=== PATIENT | male | born 1935 | race Caucasian/White ===

== ENCOUNTER 2016-08-22 13:30 | Inpatient (IN) | payer MEDICARE, MEDICAID ==
--- NOTE | 2016-08-22 13:31 | ED Physician Chart ---
Chief Complaint/HPI - Patient Information Date Seen:: 08/22/16 Time Seen:: 13:31 Chief Complaint:: abnormal labs History of Present Illness:: 81-year-old male, history of dementia, [facility] with acute, severe, abnormal labs that were noticed about 2 hours prior to arrival. Patient has abnormal hemoglobin, BUN, and severe leukocytosis. History limited patient's underlying dementia prevents useful history History provided by EMS and EMS run sheet Historian:: EMS Review:: Nurse's Note Reviewed, EMS run form Reviewed, Transfer documents Reviewed Review of Systems - Review of Systems Other: Complete system review otherwise unremarkable except as noted in history of present illness. Past Medical History - Past Medical History Past Medical History: HTN, DM, Dementia Family History: None Social History: Non Smoker, No Alcohol, No Drug Use, Care Facility Surgical History: PEG/GTube Psychiatricy History: Dementia Medication: Reviewed Family Medical History - Family Member Mother History Unknown: Yes Physical Exam - Physical Examination Other:: INITIAL VITAL SIGNS: Reviewed by me GENERAL: Patient is lying on gurney. Demented but awake. Averbal. HEAD: Head is normocephalic. No evidence of trauma. No scalp or facial swelling EYES: No scleral icterus bilaterally ENT: Oropharynx is clear of exudate and erythema NECK: Supple. No meningismus. No masses. No evidence of trauma. No cervical spine bony step-offs or crepitus to palpation RESPIRATORY: No tachypnea. Clear to auscultation bilaterally. CV: Regular rate and rhythm. No murmurs, rubs, or gallops ABDOMEN: Soft, non-distended. No masses BACK: No ecchymoses. No evidence of trauma EXTREMITIES: Normal to inspection and palpation. No deformity SKIN: Warm and dry. No obvious rash. No jaundice NEUROLOGIC: Face is symmetric. Withdraws to pain in all extremities. Labs/Radiology/EKG Results - Lab Results Results: Lab Results 08/22/16 08/22/16 08/22/16 Range/Units 13:50 13:50 13:50 WBC 17.3 H (4.8-10.8) Th/cmm RBC 2.90 L (3.80-5.80) Mil/cmm Hgb 8.0 L (12.6-17.4) gm/dL Hct 24.2 L (39.0-49.0) % MCV 83.7 (80-99) fl MCH 27.5 (27.0-31.0) pg MCHC Differential 32.8 (28.0-36.0) pg RDW 18.8 (11.5-20.0) % Plt Count 498 H (150-400) Th/cmm MPV 7.9 fl Neutrophils % 87.0 H (40.0-80.0) % Lymphocytes % 6.1 L (20.0-50.0) % Monocytes % 5.5 (2.0-10.0) % Eosinophils % 1.0 (0.0-5.0) % Basophils % 0.4 (0.0-2.0) % PT 10.5 (9.5-11.5) SECONDS INR 1.01 (0.5-1.4) PTT (Actin FS) 25.9 L (26.0-38.0) SECONDS Sodium 150 H (136-145) mEq/L Potassium 4.2 (3.5-5.1) mEq/L Chloride 116 H (98-107) mEq/L Carbon Dioxide 25.8 (21.0-31.0) mEq/L Anion Gap 12.4 (7.0-16.0) BUN 72 H (7-25) mg/dL Creatinine 1.6 H (0.7-1.3) mg/dL Est GFR ( Amer) TNP Est GFR (Non-Af Amer) TNP BUN/Creatinine Ratio 45.0 Glucose 161 H (70-105) mg/dL Whole Bld Lactic Acid (0.60-1.99) mmol/L Calcium 9.9 (8.6-10.3) mg/dL Total Bilirubin 0.3 (0.3-1.0) mg/dL AST 25 (13-39) U/L ALT 15 (7-52) U/L Alkaline Phosphatase 88 (34-104) U/L Creatine Kinase 191 (30-223) U/L Total Protein 8.9 H (6.0-8.3) gm/dL Albumin 2.7 L (4.2-5.5) gm/dL Globulin 6.2 gm/dL Albumin/Globulin Ratio 0.4 L (1.0-1.8) /09/04 Range/Units 13:50 WBC (4.8-10.8) Th/cmm RBC (3.80-5.80) Mil/cmm Hgb (12.6-17.4) gm/dL Hct (39.0-49.0) % MCV (80-99) fl MCH (27.0-31.0) pg MCHC Differential (28.0-36.0) pg RDW (11.5-20.0) % Plt Count (150-400) Th/cmm MPV fl Neutrophils % (40.0-80.0) % Lymphocytes % (20.0-50.0) % Monocytes % (2.0-10.0) % Eosinophils % (0.0-5.0) % Basophils % (0.0-2.0) % PT (9.5-11.5) SECONDS INR (0.5-1.4) PTT (Actin FS) (26.0-38.0) SECONDS Sodium (136-145) mEq/L Potassium (3.5-5.1) mEq/L Chloride (98-107) mEq/L Carbon Dioxide (21.0-31.0) mEq/L Anion Gap (7.0-16.0) BUN (7-25) mg/dL Creatinine (0.7-1.3) mg/dL Est GFR ( Amer) Est GFR (Non-Af Amer) BUN/Creatinine Ratio Glucose (70-105) mg/dL Whole Bld Lactic Acid 3.74 H* (0.60-1.99) mmol/L Calcium (8.6-10.3) mg/dL Total Bilirubin (0.3-1.0) mg/dL AST (13-39) U/L ALT (7-52) U/L Alkaline Phosphatase (34-104) U/L Creatine Kinase (30-223) U/L Total Protein (6.0-8.3) gm/dL Albumin (4.2-5.5) gm/dL Globulin gm/dL Albumin/Globulin Ratio (1.0-1.8) - Radiology Results Results: Single AP VIEW Portable Chest X-ray was interpreted independently and contemporaneously by Kirill Champagne MD: No cardiomegaly Normal mediastinum No lung infiltrates No pneumothorax No soft tissue or bony abnormalities - EKG Interpretations Comments:: 12-lead EKG Interpretation by Kirill Champagne MD: Sinus tachycardia with ventricular rate of 112 beats per minute Normal axis Normal intervals No acute ST or T wave changes. No obvious STEMI ED Septic Shock - . Is Septic Shock (SBP<90, OR Lactate>4 mmol\L) present?: No Reassessment (Disposition) - Diagnosis Diagnosis:: Sepsis due to acute urinary tract infection Diabetes mellitus type 2 Hypertension - Patient Disposition Discharge/Transfer:: Acute Care w/in this hosp Discussion with Medical Provider:: Discussed case with Dr. Patel who is covering for Dr. Leong Admitting Medical Physician:: Farhad Thomas Condition at Disposition:: Stable
--- NOTE | 2016-08-22 13:47 | Diagnostic Imaging Report ---
CHEST X-RAY: AP view INDICATION: pain COMPARISON: None FINDINGS: Suboptimal lung bones are seen. Left chest wall ICD apparatus is seen with leads in the region of the right atrium and right ventricle. No focal consolidation or effusions. Heart size normal. Atherosclerosis is noted. The osseous structures are intact. IMPRESSION: Suboptimal lung volumes with no focal consolidation identified. Atherosclerotic vascular disease. AICD noted.
[2016-08-22 14:11] LABS: % BASOPHILS 0.4 % (0.0-2.0); % LYMPHOCYTES 6.1 % (20.0-50.0); % MONOCYTES 5.5 % (2.0-10.0); HEMATOCRIT 24.2 % (39.0-49.0); MEAN CELL VOLUME 83.7 fl (80-99); MEAN CORPUSCULAR HEMOGLOBIN 27.5 pg (27.0-31.0); MEAN CORPUSCULAR HGB CONC 32.8 pg (28.0-36.0); MEAN PLATELET VOLUME 7.9 fl; NEUTROPHILE ABSOLUTE 14.9 Th/cmm (1.8-8.0); PLATELET COUNT 498 Th/cmm (150-400); RED CELL DISTRIBUTION WIDTH 18.8 % (11.5-20.0)
[2016-08-22] MEDS ORDERED: Amoxicillin/Clavulanat 875/125 Tab PO ONE (14:16)
[2016-08-22] MEDS ORDERED: Sodium Chloride 0.9% 1,000 ML IV ONE ×2 (14:20→14:53)
[2016-08-22] MEDS ORDERED: cefTRIAXone 1 GM in Sodium Chloride 0.9% 50 ML IV ONE (14:20)
[2016-08-22 14:21] LABS: WHITE BLOOD COUNT 17.3 Th/cmm (4.8-10.8)
[2016-08-22 14:24] LABS: INR 1.01 (0.5-1.4); PROTHROMBIN TIME (TEST) 10.5 SECONDS (9.5-11.5)
[2016-08-22 14:28] LABS: ALB/GLOB RATIO 0.4 (1.0-1.8); ALKALINE PHOSPHATASE 88 U/L (34-104); ANION GAP 12.4 (7.0-16.0); BILIRUBIN,TOTAL 0.3 mg/dL (0.3-1.0); BUN - UREA NITROGEN 72 mg/dL (7-25); CALCIUM SERUM 9.9 mg/dL (8.6-10.3); CARBON DIOXIDE 25.8 mEq/L (21.0-31.0); CHLORIDE 116 mEq/L (98-107); CREATININE - SERUM 1.6 mg/dL (0.7-1.3); GLUCOSE 161 mg/dL (70-105); POTASSIUM SERUM 4.2 mEq/L (3.5-5.1); SGOT 25 U/L (13-39); SGPT/ALT 15 U/L (7-52); SODIUM SERUM 150 mEq/L (136-145)
[2016-08-22 15:26] LABS: URINE BILIRUBIN NEGATIVE (NEGATIVE); URINE BLOOD LARGE (NEGATIVE); URINE COLOR YELLOW; URINE GLUCOSE (UA) NEGATIVE (NEGATIVE); URINE KETONE NEGATIVE (NEGATIVE); URINE PH 8.5; URINE PROTEIN 100 mg/dL (NEGATIVE)
[2016-08-22 15:31] LABS: URINE BACTERIA FEW /hpf (NONE SEEN); URINE EPITHELIAL CELLS NONE SEEN /lpf (FEW); URINE RBC 50-100 /hpf (0-5)
[2016-08-22 17:02] VITALS: BP 116/61
[2016-08-22] MEDS: INSULIN ASPART SLIDING SCALE 100 UNITS/ML UNIT SUBQ SCH (18:10)
[2016-08-22] MEDS: D5-0.45NS 1,000 ML IV SCH (18:11)
--- NOTE | 2016-08-22 20:34 | Admit Criteria Form ---
Admit Criteria Forms - Admit Criteria Diagnosis: SEVERE SEPSIS Clinical Indications for Admission to Inpatient Care (Place 'X' for any and all applicable criteria): Hospital admission is needed for appropriate care of the patient because of ANY ONE of the following: [X]I. Hemodynamic instability indicated by ANY ONE of the following(1)(2)(3)( 4)(5): []a. Vital sign abnormality not readily corrected by appropriate treatment within 12 to 24 hours indicated by ANY ONE of the following: []i) Tachycardia that persists despite appropriate treatment []ii) Hypotension that persists despite appropriate treatment []iii)Orthostatic vital sign changes that persist despite appropriate treatment [X]b. Vital sign abnormality that is severe indicated by ANY ONE of the following: [X]i.Inadequate perfusion indicated by ANY ONE of the following : [X]1) Lactic acidosis (greater than 2 mmol/L) []2) New abnormal capillary refill (greater than 3 seconds) []3) Reduced urine output []4) New altered mental status []5) Myocardial Ischemia []ii. Mean arterial pressure [A] less than 60 mm Hg []iii. Mean arterial pressure[A] less than 70 mm Hg after 30 minutes of appropriate treatment (eg, fluid resuscitation) []iv. Sustained heart rate greater than 120 beats per minute in adult []v. IV inotropic or vasopressor medication required to maintain adequate blood pressure or perfusion []II. Systemic or infectious condition causing severe symptoms or findings not responsive to emergency or observation care treatment (as appropriate) indicated by ANY ONE of the following: []a. Cardiac arrhythmias of immediate concern(1)(2)(3) []b. Severe endocrine disorder (eg, thyrotoxicosis, adrenal insufficiency)(4)(5) []c. Seizures (eg, new or recurrent)(6) []d. New-onset end organ failure or dysfunction as indicated by ANY ONE of the following: []i. Acute unexplained hypoxemia (eg, not from lung infection or chronic disease)(7)(8)(9) []ii. Acute renal failure as indicated by new onset of ANY ONE of the following(10)(11)(12)(13)(14): []1) 3-fold rise in serum creatinine from baseline []2) Serum creatinine greater than 4 mg/dL (354 micromoles/L) with acute rise greater than 0.5 mg/dL (44.2 micromoles/L) []3) Reduction of more than 75% in estimated glomerular filtration rate from baseline. []4) Estimated glomerular filtration rate less than 35 mL/min/1.73m2 ( 0.59 mL/sec/1.73m2) in child younger than 18 years. []5) Cessation of urine output indicated by ALL of the following: []A. Adequate volume status []B. Inadequate urine output as indicated by ANY ONE of the following: []a. Urine output less than 0.3 mL/kg/hr for 24 hours []b. Anuria (urine output less than 0.1 mL/kg/hr) for 12 hours []iii. Acute mental status changes(15) []iv.Acute hepatic failure (eg, plasma bilirubin greater than 4 mg/dL ( 68 micromoles/L), new INR greater than 2.0)(16)(17) []e. Unmanageable nausea and vomiting(18) []f. New-onset or uncontrolled central diabetes insipidus(19)(20) []g. Clinically significant dehydration(18)(21) []h. Hypoglycemia(22) []i. Acidosis (pH less than 7.35) or alkalosis (pH greater than 7.45)( 22)(23) []j. Toxic drug level that indicates need for specific monitoring or treatment(24)(25) []k. Severe electrolyte abnormalities indicated by ALL of the following( 1)(2)(3): []i. Electrolytes and associated findings are not as expected for patient baseline or acceptable treatment effects. []ii. Severe abnormalities indicated by ANY ONE of the following: []1) Sodium less than 130 mEq/L (mmol/L) (new) []2) Sodium less than 135 mEq/L (mmol/L) with ANY ONE of the following: []A. Uncorrectable (to near normal or chronic baseline) after trial of outpatient and emergency treatment []B. Altered mental status []C. Seizures []D. Severe medical etiology requiring inpatient management (eg , heart failure, hypovolemia) []3) Sodium greater than 155 mEq/L (mmol/L) []4) Sodium greater than 150 mEq/L (mmol/L) with ANY ONE of the following: []A. Uncorrectable (to near normal or chronic baseline) with outpatient and emergency treatment []B. Altered mental status []C. Seizures []D. Severe medical etiology (eg, hypovolemia, diabetes insipidus) []5) Potassium less than 2.5 mEq/L (mmol/L) despite outpatient and emergency treatment []6) Potassium less than 3 mEq/L (mmol/L) with ANY ONE of the following : []A. Weakness []B. Cardiac abnormality (eg, arrhythmia, conduction disturbance ) []C. Cardiac ischemia []D. Ileus []E. Ongoing medical cause requiring inpatient management (eg, acute renal wasting or SIADH) []F. Other severe symptoms []7) Potassium greater than 6.5 mEq/L (mmol/L) []8) Potassium greater than 5 mEq/L (mmol/L) with ANY ONE of the following: []A. Uncorrectable (to near normal or chronic baseline) with outpatient and emergency treatment []B. Severe ECG findings[A] []C. Acute worsening of renal failure (creatinine greater than 2.5 mg/dL (221 micromoles/L) or significant elevation for age and size) []D. Severe weakness []E. Severe medical etiology (eg, hemolysis, infection, drug overdose) []9) Calcium less than 7 mg/dL (1.75 mmol/L) despite outpatient and emergency treatment(5) []10) Calcium less than 8 mg/dL (2 mmol/L) with significant symptoms or findings (eg, altered mental status, muscle spasms, seizures , breathing difficulty, cardiac abnormality (eg, arrhythmia or conduction disturbance))(5) []11) Calcium greater than 14 mg/dL (3.5 mmol/L)(5) []12) Calcium greater than 12 mg/dL (3 mmol/L) with ANY ONE of the following(5): []A. Uncorrectable (to near normal or chronic baseline) with outpatient and emergency treatment []B. Significant dehydration or hypovolemia as indicated by ALL of the following(3)(6)(7): []a. Not resolved with initial treatments []b. Clinically significant dehydration as indicated by ANY ONE of the following: [](1) Vomiting refractory to outpatient treatment (ie, precluding oral rehydration) [](2) Inability to drink [](3) Hypernatremia or other electrolyte abnormality unable to be corrected with outpatient and emergency treatment [](4) Failure to remain hydrated with outpatient therapy [](5) Reduced urine output [](6) Hypotension [](7) Serious cause for dehydration requiring acute hospitalization ( eg, bowel obstruction, increased intracranial pressure, infectious cause) [](8) Child with ANY ONE of the following(8): [](i) Severe abdominal tenderness [](ii) Adequate care not available at home [](iii) Severe dehydration (greater than 9% loss of body weight) []C. Significant symptoms or findings (eg, altered mental status , cardiac abnormality (eg, arrhythmia, conduction disturbance), malignant etiology requiring inpatient treatment) []13) Phosphorus less than 1 mg/dL (0.32 mmol/L) []14) Phosphorus less than 1.5 mg/dL (0.48 mmol/L) with ANY ONE of the following: []A. Patient unresponsive to outpatient and emergency treatment []B. Significant symptoms or findings (eg, weakness, altered mental status, breathing difficulty, seizures, rhabdomyolysis) []15) Phosphorus greater than 10 mg/dL (3.2 mmol/L) []16) Phosphorus greater than 4.5 mg/dL (1.45 mmol/L) (new) with ANY ONE of the following: []A. Severe medical etiology (eg, crush injury, acute renal failure) []B. Associated hypocalcemia with significant findings (eg, neurologic symptoms, altered mental status, muscle spasms, seizures, breathing difficulty, cardiac abnormality (eg, arrhythmia, conduction disturbance)) []16) Magnesium less than 1 mg/dL (0.41 mmol/L) []17) Magnesium less than 1.5 mg/dL (0.62 mmol/L) with ANY ONE of the following: []A. Patient unresponsive to outpatient and emergency treatment []B. Associated hypocalcemia with significant findings (eg, altered mental status, muscle spasms, seizures, breathing difficulty, cardiac abnormality (eg, arrhythmia, conduction disturbance)) []C. Associated hypokalemia (potassium less than 3 mEq/L (mmol/L )) with risk of arrhythmia []18) Magnesium greater than 4 mEq/L (2 mmol/L) []19) Magnesium greater than 2.5 mEq/L (1.25 mmol/L) with significant symptoms or findings (eg, weakness, altered mental status, cardiac abnormality (eg, arrhythmia, conduction disturbance), breathing difficulty, severe medical etiology (eg, renal failure, hypovolemia)) []20) Uric acid greater than 20 mg/dL (1190 micromoles/L)(9) []21) Uric acid greater than 8 mg/dL (476 micromoles/L) with significant symptoms or findings of tumor lysis syndrome (eg, creatinine greater than 1.5 times upper limit of normal, cardiac abnormality (eg, arrhythmia, conduction disturbance), seizure)(9) []III. High fever or other high-risk infection situation as indicated by ANY ONE of the following(26)(27)(28): []a. Outpatient and observation care antimicrobial treatment unavailable, not effective, or not appropriate []b. Documented bacteremia []c. Temperature greater than 104.9 degrees F (40.5 degrees C) (oral) []d. Temperature greater than 103.1 degrees F (39.5 degrees C) (oral) or less than 96.8 degrees F (36 degrees C) (rectal) that does not respond to emergency treatment and observation care []IV. High-risk febrile neutropenia[A] as indicated by ANY ONE of the following(29)(30)(31)(32): []a. Profound neutropenia[B] anticipated to extend for more than 7 days []b. Hemodynamic instability []c. Hypoxemia []d. Tachypnea []e. Altered mental status []f. New-onset abdominal pain []g. New-onset vomiting or diarrhea []h. Oral or gastrointestinal mucositis that interferes with swallowing or causes severe diarrhea []i. Focal infection (eg, cellulitis, pneumonia, central line or catheter infection, perirectal abscess) []j. Renal insufficiency (eg, GFR of less than 30 mL/min/1.73m2 (0.5 mL/sec /1.73m2)). []k. Severe liver dysfunction (transaminase levels greater than 5 times normal) []l. Platelet count less than 50,000/mm3 (50 x109/L)(33) []m. Leukemia or lymphoma induction therapy []n. Leukemia not in complete remission or with evidence of disease progression []o. Bone marrow transplant patient []p. Alemtuzumab being used for therapy []q. [employer] Association for Supportive Care in Cancer (MASCC) Risk Index score of less than 21[C](33)(35). []V. Isolation required (eg, tuberculosis that requires isolation, Ebola infection)[D](36)(37)(38)(39)(40) []. Gangrene that requires treatment beyond emergency or observation level care(41)(42) []VII. Antitoxin administration and ongoing observation required (eg, tetanus, botulism)(43)(44) []. Suspected infection with rapid progression or severe symptoms as indicated by ANY ONE of the following(45): []a. Streptococcal or staphylococcal toxic shock(46) []b. Diphtheria(47) []c. Hantavirus(48) []d. Severe acute respiratory syndrome(8)(49) []e. Anthrax(50) []f. Ebola[D](36)(37)(38) []g. Necrotizing soft tissue infection(41)(42) []h. Plague(50) []i. Other suspected infection that requires care beyond emergency or observation level care []VII. Severe adverse drug or systemic toxin reaction as indicated by ANY ONE of the following(24): []a. Serotonin syndrome(51)(52) []b. Neuroleptic malignant syndrome(51)(52) []c. Cholinergic syndrome with severe symptoms (eg, bronchorrhea, weakness , mental status changes, seizures)(53) []d. Anticholinergic syndrome []e. Sympathetic syndrome with severe symptoms (eg, seizures, mental status changes, cardiac dysrhythmias) []f. Other severe adverse drug or systemic toxin reaction that remains after emergency or observation level care (as appropriate) []VIII. Allergic reaction with severe symptoms (not responsive to emergency or observation care treatment as appropriate), including ANY ONE of the following(54): []a. Airway edema (pharyngeal, epiglottic, or laryngeal edema) []b. Stridor []c. Respiratory failure []d. Bronchospasm []e. Hypotension []IX. Environmental emergency (not responsive to emergency or observation care treatment as appropriate) as indicated by ANY ONE of the following(55)(56): []a. Hyperthermia []b. Heat stroke []c. Heat exhaustion []d. Hypothermia (temperature less than 95 degrees F (35 degrees C) rectal) (57) []e. Electrocution(58) []X. Complications of transplanted organ (ie, not covered elsewhere)[E] indicated by ANY ONE of the following(59): []a. Acute graft rejection (or graft vs. host disease)[F] requiring inpatient management (eg, intravenous immunosuppression)(60)(61)(62)(63) []b. Acute failure of transplanted organ necessitating inpatient care (eg, cannot be managed in other setting) []c. Infection requiring inpatient management (eg, Hemodynamic instability, need for intravenous antimicrobial treatment)(64)(65) []d. Other complication of transplanted organ requiring inpatient management []XI. Systemic or Infectious Condition condition, symptom, or finding for which emergency and observation care have failed or are not considered appropriate. See General Criteria: Observation Care, General Admission Criteria or Pediatric General Admission Criteria guideline as appropriate. (Contents from SEVERE SEPSIS and SYSTEMIC OR INFECTIOUS CONDITION clinical indications for admission to inpatient care have been integrated in this form) The original [facility] content created by [facility] has been revised. The portions of the content which have been revised are identified through the use of italic text or in bold and [facility] has neither reviewed nor approved the modified material. All other unmodified content is copyright [facility]. Please see references footnoted in the original [facility] edition 2016 Admit Criteria Met?: Yes
[2016-08-22] MEDS: Ferrous Sulfate 325 MG TAB PO SCH (21:53)
[2016-08-23 06:19] LABS: MEAN CELL VOLUME 82.7 fl (80-99); MEAN CORPUSCULAR HEMOGLOBIN 27.2 pg (27.0-31.0); MEAN CORPUSCULAR HGB CONC 32.9 pg (28.0-36.0); MEAN PLATELET VOLUME 8.5 fl; RED BLOOD COUNT 2.55 Mil/cmm (3.80-5.80); RED CELL DISTRIBUTION WIDTH 19.5 % (11.5-20.0)
[2016-08-23 07:57] LABS: WHITE BLOOD COUNT 16.3 Th/cmm (4.8-10.8)
[2016-08-23 07:58] LABS: HEMATOCRIT 21.1 % (39.0-49.0); PLATELET COUNT 337 Th/cmm (150-400)
[2016-08-23 08:42] LABS: BAND NEUTROPHILE 7 % (0-10); BASOPHIL 1 % (0-3); EOSINOPHIL 1 % (0-5); NEUTROPHILS 74 % (40-80); TOTAL CELLS COUNTED 100
[2016-08-23 08:47] LABS: ANISOCYTOSIS 1+; PLATELET ESTIMATE ADEQUATE (NORMAL); PLATELET MORPHOLOGY PLATELET CLUMPS SEEN (NORMAL)
[2016-08-23] MEDS: Ferrous Sulfate 325 MG TAB PO SCH ×3 (09:35→21:42)
[2016-08-23] MEDS: cefTRIAXone 1 GM in Sodium Chloride 0.9% 50 ML IV SCH (09:41)
[2016-08-23] MEDS: INSULIN ASPART SLIDING SCALE 100 UNITS/ML UNIT SUBQ SCH ×2 (09:42→17:21)
--- NOTE | 2016-08-23 15:24 | Admit Criteria Form ---
Admit Criteria Forms - Admit Criteria Diagnosis: SEPSIS and OTHER FEBRILE ILLNESS, W/O FOCAL INFECTION Clinical Indications for Admission to Inpatient Care ( Place 'X' for any and all applicable criteria): Admission is indicated for ANY ONE of the following (1)(2)(3)(4): [ ] I. Bacteremia [ ]II. Suspected or identified specific infection requiring hospitalization (eg, meningitis, endocarditis) [ ]III. Hemodynamic instability [ ]IV. Altered mental status [ ]V. Failure or unavailability of outpatient antimicrobial treatment [ ]. Hypoxemia [ ]VII. Seizures [ ]VIII. High-risk febrile neutropenia [ ]IX. Need for parenteral antibiotic in patient who is likely to abuse vascular access device (eg, injection drug user) [A](7) [ ]X. Temperature greater than 104.9 degrees F (40.5 degrees C) (oral) [X]XI. Inpatient admission required rather than observation care because of ANY ONE of the following: [ ]1) Specific infection identified that is too severe for outpatient treatment or observation care trial [ ]2) Metabolic disorder (eg, hypoglycemia, hyperglycemia, metabolic acidosis) that is severe or persistent [ ]3) Temperature greater than 103.1 degrees F (39.5 degrees C) ( oral) that is not responsive to observation care treatment [ ]4) IV fluid to replace significant ongoing (eg, for over 24 hours) losses (> 3 L/m2 per day) [ ]5) Supplemental oxygen or respiratory treatments for over 24 hours that is performable only in acute inpatient setting [ ]6) Parenteral nutrition regimen need that must be implemented on inpatient basis [ ]7) Strict or protective (eg, laminar flow) isolation [X]8) Other condition, treatment or monitoring requiring inpatient admission Extended stay beyond goal length of stay may be needed for(1)(3) [ ]a) Sepsis or septic shock(22) [ ]b) Positive blood cultures [ ]c) Insufficient oral intake [ ]d) High-risk febrile neutropenia(29)(30) [ ]e) Continued fever and clinical instability [ ]f) Clinically active comorbid illness (e.g,heart failure, renal failure , diabetes) The original [employer] content created by [employer] has been revised. The portions of the content which have been revised are identified through the use of italic text or in bold, and [facility] has neither reviewed nor approved the modified material. All other unmodified content is copyright [facility]. Please see references footnoted in the original [facility] edition 2016 Admit Criteria Met?: Yes
[2016-08-23 15:56] LABS: ANION GAP 11.9 (7.0-16.0); CALCIUM SERUM 9.3 mg/dL (8.6-10.3); CARBON DIOXIDE 19.1 mEq/L (21.0-31.0); CHLORIDE 123 mEq/L (98-107); CREATININE - SERUM 1.5 mg/dL (0.7-1.3); GLUCOSE 167 mg/dL (70-105); SODIUM SERUM 150 mEq/L (136-145)
[2016-08-23 16:03] LABS: BUN - UREA NITROGEN 65 mg/dL (7-25); BUN/CREATININE RATIO 43.3
--- NOTE | 2016-08-23 16:14 | History & Physical ---
HISTORY OF PRESENT ILLNESS: This is a 81-year-old black [place] male who was admitted through the Emergency Room for the history of abnormal labs, leukocytosis and low hemoglobin, needing blood transfusion. This patient is a resident of detention facility and was seen in the Emergency Room. In the Emergency Room, the patient was evaluated for his WBCs and it was found to be elevated to 17.3 and hemoglobin was low at 8.0. Sodium was also high at 150 and his glucose was 161, and his BUN was 72 and creatinine was 1.6. PAST MEDICAL HISTORY: Significant for hypertension, diabetes and dementia. FAMILY HISTORY: Noncontributory. SOCIAL HISTORY: He is a nonsmoker and no use of alcohol noted. No drug abuse. He 11/12 needs assistance at the nursing care. SURGICAL HISTORY: Significant for the PEG and a G-tube. PSYCHIATRIC HISTORY: Has dementia or slow mental development. MEDICATIONS: See the reconciliation list. FAMILY MEDICAL: Mother was present at the ER, but there is no known history of any medical history noted. REVIEW OF SYSTEMS: Could not be obtained from the patient because the patient was not responding to the verbal commands, but except he was responding for the painful stimuli. PHYSICAL EXAMINATION: INITIAL VITAL SIGNS: The patient's vital signs today were temperature is 100, pulse rate 127, blood pressure 121/58, respiration rate 18, saturation 93% on room air and pain is 0/10. GENERAL: The patient is well developed, person who is lying in the bed and demented, but awake and arousable, nonverbal. HEENT: Head is atraumatic and normocephalic and there is no evidence of trauma to the scalp. No facial swelling noted. Eyes, clear icterus bilaterally. ENT: Oropharynx is clear of exudate or erythema. NECK: Supple. No meningismus. No masses. RESPIRATORY: No tachypnea. CHEST: Clear to auscultate bilaterally. CARDIAC: Regular rate and rhythm. No murmurs, rubs or gallops. S1, S2 heard. ABDOMEN: Soft and nondistended. No masses palpable. G-tube is in place. BACK. No ecchymosis. No evidence of trauma. EXTREMITIES: Normal to inspection and palpation and no deformity noted and no clubbing, no cyanosis and no edema. SKIN: Warm and dry. NEUROLOGIC: Face is symmetric, withdraws to pain in all extremities. LABORATORY DATA: Pertinent lab shows in the ER, the hemoglobin was 8 and today in the pham, it is 7.0 and the chest x-ray shows no cardiomegaly. Normal mediastinum, no lung infiltrates noted. EKG shows sinus tachycardia with ventricular rate of 112 beats per minute and no acute ST or T-wave changes noted and UA shows positive for the leukocyte esterase as well as nitrite. Urine culture is pending for the culture and sensitivity. DIAGNOSES: 1. Sepsis due to acute urinary tract infection or urosepsis. 2. Diabetes mellitus, type 2. 3. Hypertension. 4. Dementia. 5. Anemia. PLAN: To admit him to the med/surg and we will transfuse 2 units of the PRBCs today and will also obtain a post-transfusion CBC to follow up on the hemoglobin and the patient was hydrated in the Emergency Room and today will order CBC to monitor his sodium, which was 150 and the BUN and creatinine today is 65 and 1.5, and glucose is 133 and lactic acid is ____. The CRP is elevated to 26 and ESR is greater than 140, which all shows towards the sepsis. Urine shows protein 100, blood is large, leukocyte esterase is large. Urine rbc's 50-100, wbc's 10-25 and hence the patient will be started on the antibiotic and Dr. Tigre Amaro will be consulted for the Infectious Disease and will continue the antibiotic, Rocephin 1 gram daily, which was started in the Emergency Room. After the transfusion, we will follow post-transfusion CBC and our goal is to wait for the culture and then treat with appropriate antibiotics and once the patient is stable and if sodium is within normal range, then the patient will be discharged back to the intermediate as per Dr. eLong's discretion. JOB# [id number]
[2016-08-24 06:36] LABS: MEAN CELL VOLUME 84.3 fl (80-99); MEAN CORPUSCULAR HEMOGLOBIN 27.7 pg (27.0-31.0); MEAN CORPUSCULAR HGB CONC 32.9 pg (28.0-36.0); MEAN PLATELET VOLUME 8.4 fl; PLATELET COUNT 339 Th/cmm (150-400); RED BLOOD COUNT 3.42 Mil/cmm (3.80-5.80); RED CELL DISTRIBUTION WIDTH 17.5 % (11.5-20.0)
[2016-08-24 07:00] LABS: ANION GAP 6.3 (7.0-16.0); BUN - UREA NITROGEN 52 mg/dL (7-25); CALCIUM SERUM 9.2 mg/dL (8.6-10.3); CARBON DIOXIDE 25.5 mEq/L (21.0-31.0); CHLORIDE 124 mEq/L (98-107); CREATININE - SERUM 1.3 mg/dL (0.7-1.3); GLUCOSE 168 mg/dL (70-105); POTASSIUM SERUM 3.8 mEq/L (3.5-5.1); SODIUM SERUM 152 mEq/L (136-145)
[2016-08-24 07:19] LABS: HEMATOCRIT 28.8 % (39.0-49.0); HEMOGLOBIN 9.5 gm/dL (12.6-17.4); WHITE BLOOD COUNT 14.5 Th/cmm (4.8-10.8)
[2016-08-24 07:58] LABS: EOSINOPHIL 2 % (0-5); NEUTROPHILS 87 % (40-80); PLATELET ESTIMATE ADEQUATE (NORMAL); PLATELET MORPHOLOGY PLATELET CLUMPS SEEN (NORMAL); TOTAL CELLS COUNTED 100
[2016-08-24 07:59] LABS: ANISOCYTOSIS 1+
[2016-08-24] MEDS: cefTRIAXone 1 GM in Sodium Chloride 0.9% 50 ML IV SCH (09:44)
[2016-08-24] MEDS: Ferrous Sulfate 325 MG TAB PO SCH ×3 (09:44→22:35)
[2016-08-24] MEDS: INSULIN ASPART SLIDING SCALE 100 UNITS/ML UNIT SUBQ SCH ×2 (09:45→17:10)
[2016-08-24] MEDS: D5-0.45NS 1,000 ML IV SCH (09:45)
--- NOTE | 2016-08-24 09:57 | General Progress Note ---
Subjective - Review of Systems Service Date: 08/24/16 Events since last encounter: no distress Subjective: ptis somewhat confused sob Objective - Results Result Diagrams: 08/24/16 05:52 08/24/16 05:52 Recent Labs: Laboratory Last Values WBC 14.5 Th/cmm (4.8-10.8) H 08/24/16 05:52 RBC 3.42 Mil/cmm (3.80-5.80) L 08/24/16 05:52 Hgb 9.5 gm/dL (12.6-17.4) L D 08/24/16 05:52 Hct 28.8 % (39.0-49.0) L D 08/24/16 05:52 MCV 84.3 fl (80-99) 08/24/16 05:52 MCH 27.7 pg (27.0-31.0) 08/24/16 05:52 MCHC Differential 32.9 pg (28.0-36.0) 08/24/16 05:52 RDW 17.5 % (11.5-20.0) 08/24/16 05:52 Plt Count 339 Th/cmm (150-400) 08/24/16 05:52 MPV 8.4 fl 08/24/16 05:52 Neutrophils % 87.0 % (40.0-80.0) H 08/22/16 13:50 Band Neutrophils % 7 % (0-10) 08/23/16 05:45 Lymphocytes % 6.1 % (20.0-50.0) L 08/22/16 13:50 Monocytes % 5.5 % (2.0-10.0) 08/22/16 13:50 Eosinophils % 1.0 % (0.0-5.0) 08/22/16 13:50 Basophils % 0.4 % (0.0-2.0) 08/22/16 13:50 Neutrophils (Manual) 87 % (40-80) H 08/24/16 05:52 Lymphocytes 8 % (20-50) L 08/24/16 05:52 Monocytes 3 % (2-10) 08/24/16 05:52 Eosinophils 2 % (0-5) 08/24/16 05:52 Basophils 1 % (0-3) 08/23/16 05:45 Platelet Estimate ADEQUATE (NORMAL) 08/24/16 05:52 Platelet Morphology PLATELET CLUMPS SEEN (NORMAL) 08/24/16 05:52 Anisocytosis 1+ 08/24/16 05:52 RBC Morph Micro Appear ABNORMAL (NORMAL) 08/24/16 05:52 ESR > 140 mm/hr (0-20) H 08/22/16 13:00 PT 10.5 SECONDS (9.5-11.5) 08/22/16 13:50 INR 1.01 (0.5-1.4) 08/22/16 13:50 PTT (Actin FS) 25.9 SECONDS (26.0-38.0) L 08/22/16 13:50 Sodium 152 mEq/L (136-145) H 08/24/16 05:52 Potassium 3.8 mEq/L (3.5-5.1) 08/24/16 05:52 Chloride 124 mEq/L (98-107) H 08/24/16 05:52 Carbon Dioxide 25.5 mEq/L (21.0-31.0) 08/24/16 05:52 Anion Gap 6.3 (7.0-16.0) L 08/24/16 05:52 BUN 52 mg/dL (7-25) H 08/24/16 05:52 Creatinine 1.3 mg/dL (0.7-1.3) 08/24/16 05:52 Est GFR ( Amer) TNP 08/24/16 05:52 Est GFR (Non-Af Amer) TNP 08/24/16 05:52 BUN/Creatinine Ratio 40.0 08/24/16 05:52 Glucose 168 mg/dL (70-105) H 08/24/16 05:52 POC Glucose 154 MG/DL (70 - 105) H 08/23/16 16:23 Whole Bld Lactic Acid 5.27 mmol/L (0.60-1.99) H* 08/22/16 15:55 Calcium 9.2 mg/dL (8.6-10.3) 08/24/16 05:52 Total Bilirubin 0.3 mg/dL (0.3-1.0) 08/22/16 13:50 AST 25 U/L (13-39) 08/22/16 13:50 ALT 15 U/L (7-52) 08/22/16 13:50 Alkaline Phosphatase 88 U/L (34-104) 08/22/16 13:50 Creatine Kinase 191 U/L (30-223) 08/22/16 13:50 C-Reactive Protein 26.0 mg/dL (0.0-0.9) H 08/22/16 13:00 Total Protein 8.9 gm/dL (6.0-8.3) H 08/22/16 13:50 Albumin 2.7 gm/dL (4.2-5.5) L 08/22/16 13:50 Globulin 6.2 gm/dL 08/22/16 13:50 Albumin/Globulin Ratio 0.4 (1.0-1.8) L 08/22/16 13:50 Urine Source CATH 08/22/16 14:50 Urine Color YELLOW 08/22/16 14:50 Urine Clarity CLOUDY (CLEAR) 08/22/16 14:50 Urine pH 8.5 08/22/16 14:50 Ur Specific [place] 1.015 (1.005-1.030) 08/22/16 14:50 Urine Protein 100 mg/dL (NEGATIVE) H 08/22/16 14:50 Urine Glucose (UA) NEGATIVE mg/dL (NEGATIVE) 08/22/16 14:50 Urine Ketones NEGATIVE mg/dL (NEGATIVE) 08/22/16 14:50 Urine Blood LARGE (NEGATIVE) H 08/22/16 14:50 Urine Nitrate NEGATIVE (NEGATIVE) 08/22/16 14:50 Urine Bilirubin NEGATIVE (NEGATIVE) 08/22/16 14:50 Urine Urobilinogen 1.0 E.U./dL (0.2 - 1.0) 08/22/16 14:50 Ur Leukocyte Esterase LARGE (NEGATIVE) H 08/22/16 14:50 Urine RBC 50-100 /hpf (0-5) H 08/22/16 14:50 Urine WBC 10-25 /hpf (0-5) H 08/22/16 14:50 Ur Epithelial Cells NONE SEEN /lpf (FEW) 08/22/16 14:50 Urine Bacteria FEW /hpf (NONE SEEN) 08/22/16 14:50 Blood Type O POSITIVE 08/22/16 13:50 Antibody Screen NEGATIVE 08/22/16 13:50 Crossmatch See Detail 08/22/16 13:50 - Physical Exam Vitals and I&O: Vital Signs Temp 99.1 F 08/24/16 08:00 Pulse 112 08/24/16 08:00 Resp 20 08/24/16 04:00 BP 144/82 08/24/16 08:00 Pulse Ox 19 08/24/16 08:00 Intake & Output 08/23/16 08/24/16 08/24/16 18:59 06:59 18:59 Intake Total 50 1000 Balance 50 1000 Weight (lbs) 58.332 kg Intake: Intake, IV Amount 50 cefTRIAXone 1 gm In 50 Sodium Chloride 0.9% 50 ml @ 100 mls/hr IV Q24HR [facility] Rx#:[id number] Tube Feeding 1000 Other: # Voids 2 Stool Characteristics Soft Active Medications: Current Medications Docusate Sodium (Colace) 100 mg PO HS [facility] Stop: 10/21/16 20:59 Last Admin: 08/23/16 21:41 Dose: 100 mg Ferrous Sulfate (Iron) 325 mg PO TID [facility] Stop: 10/21/16 20:59 Last Admin: 08/23/16 21:42 Dose: 325 mg Dextrose/Sodium Chloride (D5-0.45ns) 1,000 mls @ 60 mls/hr IV .[id number] [facility] Stop: 10/21/16 17:16 Last Admin: 08/22/16 18:11 Dose: 60 mls/hr Ceftriaxone Sodium 1 gm/ (Sodium Chloride) 50 mls @ 100 mls/hr IV Q24HR [facility] Stop: 10/22/16 08:59 Last Infusion: 08/23/16 17:48 Dose: Infused Insulin Aspart (Novolog Insulin Sliding Scale) 2 - 12 units SUBQ BID [facility] PRN Reason: Protocol Stop: 10/21/16 17:29 Last Admin: 08/23/16 17:21 Dose: 2 units Metformin HCl (Glucophage) 500 mg PO BID [facility] Stop: 10/22/16 09:59 Last Admin: 08/23/16 17:22 Dose: 500 mg General: No acute distress, Other (confused) HEENT: Atraumatic Neck: Supple Cardiovascular: Regular rate Abdomen: Bowel sounds Extremities: Clubbing Assessment/Plan - Problem List Patient Problems: All Active Problems ELEVATED WHITE BLOOD CELL COUNT (Acute) SIRS (systemic inflammatory response syndrome) (Acute) R65.10 anemia (Acute) sirs (Acute) uti (Acute) - Plan Plan: cpm Nutritional Asmnt/Malnutr-PDOC - Dietary Evaluation Malnutrition Findings (Please click <Entered> for more info): Nutritional Asmnt/Malnutrition Start: 08/23/16 09: 33 Text: Status: Complete Freq: Document 08/23/16 09:34 TRACEY (Rec: 08/23/16 09:58 TRACEY [email or web address]) Nutritional Asmnt/Malnutrition Patient General Information Nutritional Screening High Risk Screening Diagnosis ER: Sepsis due to UTI, DM2, HTN Pertinent Medical Hx/Surgical Hx ER: Dementia, DM, HTN Subjective Information 81 year old male from SNF, per ER notes, admitted due to acute severe, abnormal labs. Pt with eyes closed, moving hands around, appeared to be mumbling to self, did not respond to RD. Pt apepared thin overall, mild wasting to temporals. Spoke to RN, pt tolerating tube feeding well, no diarrhea noted. Current Diet Order/ Nutrition Support Diabetisource 60ml/hr x 20hrs, providing 1440kcal. Water flush 200ml qshift Pertinent Medications D5, Colace, Iron, Novolog, Glucophage Pertinent Labs 08/22: BUN 72H, creatinine 1.6H, 161H Nutritional Hx/Data Height 1.7 m Height (Calculated Centimeters) 170.2 Current Weight (lbs) 58.332 kg Weight (Calculated Kilograms) 58.3 Weight (Calculated Grams) 95993.0 [place] Body Weight 148lb Weight Status Approriate GI Symptoms Food Allergies No Cultural/Ethnic/Faith Belief SNF order: Glucerna 1.5 at 60ml/hr x 20hrs, providing 1800kcal. Water flush 50ml/hr x 20hrs, providing 1000ml. Skin Integrity/Comment: Saul 14. Right hip pressure area. Estimated Nutritional Goals BEE in Kcals: Using Current wt Calories/Kcals/Kg CBW 58.3kg Kcals Calculated 1749-2041kcal (30-35kcal/kg) Protein: Using Current wt Protein Calculated 76-93g (1.3-1.6g/kg) Fluid: ml 1749-2041ml (1ml/kcal) Nutritional Problem 1. Problem Problem Inadequate intake from enteral /parenteral nutrition infusion related to Etiology estimated nutritional needs, hypermetabolic state aeb Signs/Symptoms: only providing to meet 82% of lower end of estimated nutritional needs. Intervention/Recommendation Comments 1. Recommend Diabetisource 65ml/hr x 24hrs, providing 1872kcal, 94g protein, 1276ml free water. Pt was receiving 1800kcal at [facility], current diet order only providing 1440kcal. 2. Recommend 120ml water flush q6hrs when IV discontinued. Expected Outcomes/Goals Expected Outcomes/Goals 1. Pt to meet 100% of estimated nutritional needs on tube feeding with tolerance.
[2016-08-25] MEDS: Dextrose 5% 1,000 ML IV SCH ×2 (05:57→22:02)
[2016-08-25 06:36] LABS: ALB/GLOB RATIO 0.4 (1.0-1.8); ALKALINE PHOSPHATASE 88 U/L (34-104); ANION GAP 8.4 (7.0-16.0); BILIRUBIN,TOTAL 0.4 mg/dL (0.3-1.0); BUN - UREA NITROGEN 44 mg/dL (7-25); BUN/CREATININE RATIO 36.7; CALCIUM SERUM 9.4 mg/dL (8.6-10.3); CARBON DIOXIDE 23.9 mEq/L (21.0-31.0); CHLORIDE 119 mEq/L (98-107); CREATININE - SERUM 1.2 mg/dL (0.7-1.3); GLUCOSE 168 mg/dL (70-105); PHOSPHOROUS 2.3 mg/dL (2.5-5.0); POTASSIUM SERUM 4.3 mEq/L (3.5-5.1); SGOT 32 U/L (13-39); SGPT/ALT 17 U/L (7-52); SODIUM SERUM 147 mEq/L (136-145)
[2016-08-25 06:46] LABS: HEMATOCRIT 31.1 % (39.0-49.0); MEAN CELL VOLUME 84.5 fl (80-99); MEAN CORPUSCULAR HEMOGLOBIN 27.2 pg (27.0-31.0); MEAN CORPUSCULAR HGB CONC 32.2 pg (28.0-36.0); MEAN PLATELET VOLUME 8.6 fl; RED BLOOD COUNT 3.68 Mil/cmm (3.80-5.80); RED CELL DISTRIBUTION WIDTH 17.7 % (11.5-20.0)
[2016-08-25 06:50] LABS: PLATELET COUNT 266 Th/cmm (150-400); WHITE BLOOD COUNT 17.2 Th/cmm (4.8-10.8)
[2016-08-25 07:38] LABS: BAND NEUTROPHILE 1 % (0-10); EOSINOPHIL 3 % (0-5); NEUTROPHILS 82 % (40-80); PLATELET ESTIMATE ADEQUATE (NORMAL); TOTAL CELLS COUNTED 100
[2016-08-25 07:39] LABS: ANISOCYTOSIS 1+; PLATELET MORPHOLOGY PLATELET CLUMPS SEEN (NORMAL)
--- NOTE | 2016-08-25 07:39 | Consultation ---
ATTENDING PHYSICIAN: Dr. Noe Leong. MUFF WINDER: Dr. Griffin Wei. REASON FOR CONSULTATION: For worsening kidney function and electrolyte imbalance and fluid management. HISTORY OF PRESENT ILLNESS: This is a 81-year-old -[place]one[place] male with past medical history of type 2 diabetes mellitus who was brought in because of generalized weakness. A few hours prior to admission, F staff noted the patient to have generalized weakness and was left active as usual. Labs were drawn, which revealed numerous abnormal values. Thus, he was sent to the Emergency Room. His white count was 17.3 with a hemoglobin/hematocrit of 8/24.2. Urinalysis was suggestive of a urinary tract infection. Lactic acid was elevated at 3.74 with an ESR of greater than 100. His BUN/creatinine at the Emergency Room was 72/1.6 with a sodium of 150. There was no mention of any nausea and vomiting nor diarrhea. PAST MEDICAL HISTORY: 1. Type 2 diabetes mellitus. 2. Essential hypertension. 3. Alzheimer dementia. CURRENT MEDICATIONS: Currently on Colace, iron, aspart, ceftriaxone and metformin. ALLERGIES: No known drug allergies. SOCIAL AND FAMILY HISTORY: I was not able to obtain directly from the patient because he remains nonverbal. REVIEW OF SYSTEMS: CONSTITUTIONAL: Again, I was not able to decipher directly from the patient. However, per transfer notes, the patient has a gastrostomy tube feeding. There was no mention of fever/chills. However, he has generalized weakness. HEENT: No mention of headaches nor dizziness. CARDIORESPIRATORY: No mention of shortness of breath, chest pain, palpitations, diaphoresis or cough. ABDOMEN: Mildly globular, soft. Positive for bowel sounds. No bruits either diastolic or systolic. RECTAL: Lax sphincter tone. GENITOURINARY: Normal appearing male genitalia. MUSCULOSKELETAL: No effusions present in his joints with limited but unable to assess his range of motion. CARDIORESPIRATORY: No mention of any chest pain, shortness of breath, palpitations, diaphoresis or cough. GASTROINTESTINAL: No nausea and vomiting, abdominal pain or cramping, hematemesis, melena, hematochezia nor diarrhea. ENDOCRINE: Has a history of diabetes, no thyroid abnormalities and no dyslipidemia. MUSCULOSKELETAL: Multiple joint arthralgias. GENITOURINARY: The patient came in with kidney failure. He also has underlying complicated UTI. NEUROPSYCHE: No syncopal episode nor seizure activity. He has a history of Alzheimer dementia. PHYSICAL EXAMINATION: GENERAL: The patient is awake, but remains nonverbal, not in any form of distress. VITAL SIGNS: His blood pressure is 144/82, pulse is 112 and temperature 99.1 degrees. SKIN: Poor turgor, warm. No rash and no jaundice appreciated. HEENT: Head: Normocephalic and atraumatic. Eyes: Extraocular muscles intact. Pupils equal, round and reactive to light and accommodates. Anicteric sclerae. Pale conjunctivae. Nose, midline nasal septum. Mouth: Dry mucosa with poor dentition. NECK: Supple. No adenopathy, no thyromegaly and no bruits. Trachea palpated in the midline. CHEST AND CVS: S1, S2. No rub, murmur nor gallop appreciated. Point of maximal impulse, fifth intercostal space, left midclavicular line. No abdominal or femoral bruits appreciated. LUNGS: Equal expansion. No use of accessory muscles. No supraclavicular retractions. Decreased breath sounds but clear to auscultation without any wheeze. ABDOMEN: Flat and soft. Positive for bowel sounds. No bruits either diastolic or systolic RECTAL: Deferred. GENITOURINARY: Normal appearing male genitalia. MUSCULOSKELETAL: No effusions present in his joints with adequate range of motion. EXTREMITIES: No evidence of edema, cyanosis nor clubbing with palpable femoral, but unable to fully appreciate popliteal and dorsalis pedis pulses due to severe contractions. NEUROLOGIC: The patient, as mentioned, remains nonverbal, unable to follow my neuro commands, so I was not able to pursue further my neuro exam. LABORATORY DATA: Today revealed sodium 152, potassium 3.8, chloride 124, bicarbonate is 25, BUN is 52, creatinine 1.3 and glucose is 168. White count is 14.5, hemoglobin 9.5, hematocrit 28.8, polys 87% and platelets shows 339, ESR greater than 140. IMPRESSION: 1. Acute kidney injury MDRD GFR 54.7 mL per minute. The patient is currently on G-tube feedings. However, this may not be enough along with his water flushes to replenish his sensible and insensible fluid losses. He initially had prerenal azotemia. His physical exam revealed poor skin turgor with dry oral mucosa. These are suggestive of underlying dehydration. There may have been a decrease in his effective circulating volume. His prerenal azotemia may have progressed to acute tubular injury. He also has ongoing complicated UTI which could give rise to acute interstitial nephritis. 2. Type 2 diabetes mellitus. 3. Dehydration. 4. Essential hypertension. 5. Alzheimer dementia. 6. Severe malnutrition. 7. [id number]-pc-[id number] anemia, possibly secondary to chronic disease. 8. Generalized weakness with decreased responsiveness may be due to underlying dehydration and metabolic encephalopathy. 9. Proteus mirabilis complicated urinary tract infection. PLAN: 1. Start the patient on IV fluids with D5W. 2. Increase water flushes. 3. Urine sodium, eosinophils and creatinine. 4. Urine microalbumin to creatinine ratio. 5. Follow up electrolytes. Thank you, Dr. Leong for this consult. We will follow the patient closely with you. JOB# [id number]
[2016-08-25] MEDS: Ferrous Sulfate 325 MG TAB PO SCH ×3 (10:34→20:36)
[2016-08-25] MEDS: cefTRIAXone 1 GM in Sodium Chloride 0.9% 50 ML IV SCH (10:35)
[2016-08-25] MEDS: INSULIN ASPART SLIDING SCALE 100 UNITS/ML UNIT SUBQ SCH ×2 (11:00→17:10)
--- NOTE | 2016-08-25 12:03 | General Progress Note ---
Subjective - Review of Systems Service Date: 08/25/16 Events since last encounter: no distress Subjective: ptis somewhat confused sob still has leukocytosis Objective - Results Result Diagrams: 08/25/16 05:46 08/25/16 05:46 Recent Labs: Laboratory Last Values WBC 17.2 Th/cmm (4.8-10.8) H 08/25/16 05:46 RBC 3.68 Mil/cmm (3.80-5.80) L 08/25/16 05:46 Hgb 10.0 gm/dL (12.6-17.4) L 08/25/16 05:46 Hct 31.1 % (39.0-49.0) L 08/25/16 05:46 MCV 84.5 fl (80-99) 08/25/16 05:46 MCH 27.2 pg (27.0-31.0) 08/25/16 05:46 MCHC Differential 32.2 pg (28.0-36.0) 08/25/16 05:46 RDW 17.7 % (11.5-20.0) 08/25/16 05:46 Plt Count 266 Th/cmm (150-400) D 08/25/16 05:46 MPV 8.6 fl 08/25/16 05:46 Neutrophils % 87.0 % (40.0-80.0) H 08/22/16 13:50 Band Neutrophils % 1 % (0-10) 08/25/16 05:46 Lymphocytes % 6.1 % (20.0-50.0) L 08/22/16 13:50 Monocytes % 5.5 % (2.0-10.0) 08/22/16 13:50 Eosinophils % 1.0 % (0.0-5.0) 08/22/16 13:50 Basophils % 0.4 % (0.0-2.0) 08/22/16 13:50 Neutrophils (Manual) 82 % (40-80) H 08/25/16 05:46 Lymphocytes 7 % (20-50) L 08/25/16 05:46 Monocytes 7 % (2-10) 08/25/16 05:46 Eosinophils 3 % (0-5) 08/25/16 05:46 Basophils 1 % (0-3) 08/23/16 05:45 Platelet Estimate ADEQUATE (NORMAL) 08/25/16 05:46 Platelet Morphology PLATELET CLUMPS SEEN (NORMAL) 08/25/16 05:46 Anisocytosis 1+ 08/25/16 05:46 RBC Morph Micro Appear ABNORMAL (NORMAL) 08/25/16 05:46 ESR > 140 mm/hr (0-20) H 08/22/16 13:00 Eos Smear Source URINE 08/25/16 02:50 Eos Smear Total Cells NONE SEEN (NONE SEEN) 08/25/16 02:50 PT 10.5 SECONDS (9.5-11.5) 08/22/16 13:50 INR 1.01 (0.5-1.4) 08/22/16 13:50 PTT (Actin FS) 25.9 SECONDS (26.0-38.0) L 08/22/16 13:50 Sodium 147 mEq/L (136-145) H 08/25/16 05:46 Potassium 4.3 mEq/L (3.5-5.1) 08/25/16 05:46 Chloride 119 mEq/L (98-107) H 08/25/16 05:46 Carbon Dioxide 23.9 mEq/L (21.0-31.0) 08/25/16 05:46 Anion Gap 8.4 (7.0-16.0) 08/25/16 05:46 BUN 44 mg/dL (7-25) H 08/25/16 05:46 Creatinine 1.2 mg/dL (0.7-1.3) 08/25/16 05:46 Est GFR ( Amer) TNP 08/25/16 05:46 Est GFR (Non-Af Amer) TNP 08/25/16 05:46 BUN/Creatinine Ratio 36.7 08/25/16 05:46 Glucose 168 mg/dL (70-105) H 08/25/16 05:46 POC Glucose 171 MG/DL (70 - 105) H 08/25/16 09:21 Whole Bld Lactic Acid 5.27 mmol/L (0.60-1.99) H* 08/22/16 15:55 Uric Acid 8.1 mg/dL (4.4-7.6) H 08/25/16 05:46 Calcium 9.4 mg/dL (8.6-10.3) 08/25/16 05:46 Phosphorus 2.3 mg/dL (2.5-5.0) L 08/25/16 05:46 Magnesium 2.0 mg/dL (1.9-2.7) 08/25/16 05:46 Total Bilirubin 0.4 mg/dL (0.3-1.0) 08/25/16 05:46 AST 32 U/L (13-39) 08/25/16 05:46 ALT 17 U/L (7-52) 08/25/16 05:46 Alkaline Phosphatase 88 U/L (34-104) 08/25/16 05:46 Creatine Kinase 191 U/L (30-223) 08/22/16 13:50 C-Reactive Protein 26.0 mg/dL (0.0-0.9) H 08/22/16 13:00 Total Protein 8.2 gm/dL (6.0-8.3) 08/25/16 05:46 Albumin 2.4 gm/dL (4.2-5.5) L 08/25/16 05:46 Globulin 5.8 gm/dL 08/25/16 05:46 Albumin/Globulin Ratio 0.4 (1.0-1.8) L 08/25/16 05:46 Urine Source CATH 08/22/16 14:50 Urine Color YELLOW 08/22/16 14:50 Urine Clarity CLOUDY (CLEAR) 08/22/16 14:50 Urine pH 8.5 08/22/16 14:50 Ur Specific [place] 1.015 (1.005-1.030) 08/22/16 14:50 Urine Protein 100 mg/dL (NEGATIVE) H 08/22/16 14:50 Urine Glucose (UA) NEGATIVE mg/dL (NEGATIVE) 08/22/16 14:50 Urine Ketones NEGATIVE mg/dL (NEGATIVE) 08/22/16 14:50 Urine Blood LARGE (NEGATIVE) H 08/22/16 14:50 Urine Nitrate NEGATIVE (NEGATIVE) 08/22/16 14:50 Urine Bilirubin NEGATIVE (NEGATIVE) 08/22/16 14:50 Urine Urobilinogen 1.0 E.U./dL (0.2 - 1.0) 08/22/16 14:50 Ur Leukocyte Esterase LARGE (NEGATIVE) H 08/22/16 14:50 Urine RBC 50-100 /hpf (0-5) H 08/22/16 14:50 Urine WBC 10-25 /hpf (0-5) H 08/22/16 14:50 Ur Epithelial Cells NONE SEEN /lpf (FEW) 08/22/16 14:50 Urine Bacteria FEW /hpf (NONE SEEN) 08/22/16 14:50 Ur Random Sodium 65 mmol/L 08/25/16 02:50 Blood Type O POSITIVE 08/22/16 13:50 Antibody Screen NEGATIVE 08/22/16 13:50 Crossmatch See Detail 08/22/16 13:50 - Physical Exam Vitals and I&O: Vital Signs Temp 98 F 08/25/16 04:00 Pulse 116 08/25/16 04:00 Resp 18 08/25/16 04:00 BP 104/55 08/25/16 04:00 Pulse Ox 100 08/25/16 04:00 Intake & Output 08/24/16 08/25/16 08/25/16 18:59 06:59 18:59 Intake Total 50 1080 Balance 50 1080 Intake: Intake, IV Amount 50 cefTRIAXone 1 gm In 50 Sodium Chloride 0.9% 50 ml @ 100 mls/hr IV Q24HR [facility] Rx#:[id number] Tube Feeding 1080 Other: Stool Characteristics Soft Soft Active Medications: Current Medications Docusate Sodium (Colace) 100 mg PO HS [facility] Stop: 10/21/16 20:59 Last Admin: 08/24/16 22:35 Dose: 100 mg Ferrous Sulfate (Iron) 325 mg PO TID [facility] Stop: 10/21/16 20:59 Last Admin: 08/25/16 10:34 Dose: 325 mg Ceftriaxone Sodium 1 gm/ (Sodium Chloride) 50 mls @ 100 mls/hr IV Q24HR [facility] Stop: 10/22/16 08:59 Last Admin: 08/25/16 10:35 Dose: 100 mls/hr Dextrose (D5w) 1,000 mls @ 75 mls/hr IV .[id number] [facility] Stop: 10/23/16 14:44 Last Admin: 08/25/16 05:57 Dose: 75 mls/hr Insulin Aspart (Novolog Insulin Sliding Scale) 2 - 12 units SUBQ BID [facility] PRN Reason: Protocol Stop: 10/21/16 17:29 Last Admin: 08/25/16 11:00 Dose: 2 units Metformin HCl (Glucophage) 500 mg PO BID [facility] Stop: 10/22/16 09:59 Last Admin: 08/25/16 10:00 Dose: 500 mg General: No acute distress HEENT: Atraumatic Neck: Supple Cardiovascular: Regular rate Abdomen: Bowel sounds Assessment/Plan - Problem List Patient Problems: All Active Problems ELEVATED WHITE BLOOD CELL COUNT (Acute) SIRS (systemic inflammatory response syndrome) (Acute) R65.10 anemia (Acute) sirs (Acute) uti (Acute) - Plan Plan: cpm Nutritional Asmnt/Malnutr-PDOC - Dietary Evaluation Malnutrition Findings (Please click <Entered> for more info): Nutritional Asmnt/Malnutrition Start: 08/23/16 09: 33 Text: Status: Complete Freq: Document 08/23/16 09:34 GSUN (Rec: 08/23/16 09:58 [email or web address] [email or web address]) Nutritional Asmnt/Malnutrition Patient General Information Nutritional Screening High Risk Screening Diagnosis ER: Sepsis due to UTI, DM2, HTN Pertinent Medical Hx/Surgical Hx ER: Dementia, DM, HTN Subjective Information 81 year old male from SNF, per ER notes, admitted due to acute severe, abnormal labs. Pt with eyes closed, moving hands around, appeared to be mumbling to self, did not respond to RD. Pt apepared thin overall, mild wasting to temporals. Spoke to RN, pt tolerating tube feeding well, no diarrhea noted. Current Diet Order/ Nutrition Support Diabetisource 60ml/hr x 20hrs, providing 1440kcal. Water flush 200ml qshift Pertinent Medications D5, Colace, Iron, Novolog, Glucophage Pertinent Labs /4: BUN 72H, creatinine 1.6H, 161H Nutritional Hx/Data Height 1.7 m Height (Calculated Centimeters) 170.2 Current Weight (lbs) 58.332 kg Weight (Calculated Kilograms) 58.3 Weight (Calculated Grams) 71546.0 [place] Body Weight 148lb Weight Status Approriate GI Symptoms Food Allergies No Cultural/Ethnic/[employer] [facility] order: Glucerna 1.5 at 60ml/hr x 20hrs, providing 1800kcal. Water flush 50ml/hr x 20hrs, providing 1000ml. Skin Integrity/Comment: Saul 14. Right hip pressure area. Estimated Nutritional Goals BEE in Kcals: Using Current wt Calories/Kcals/Kg CBW 58.3kg Kcals Calculated 1749-2041kcal (30-35kcal/kg) Protein: Using Current wt Protein Calculated 76-93g (1.3-1.6g/kg) Fluid: ml 1749-2041ml (1ml/kcal) Nutritional Problem 1. Problem Problem Inadequate intake from enteral /parenteral nutrition infusion related to Etiology estimated nutritional needs, hypermetabolic state aeb Signs/Symptoms: only providing to meet 82% of lower end of estimated nutritional needs. Intervention/Recommendation Comments 1. Recommend Diabetisource 65ml/hr x 24hrs, providing 1872kcal, 94g protein, 1276ml free water. Pt was receiving 1800kcal at [facility], current diet order only providing 1440kcal. 2. Recommend 120ml water flush q6hrs when IV discontinued. Expected Outcomes/Goals Expected Outcomes/Goals 1. Pt to meet 100% of estimated nutritional needs on tube feeding with tolerance.
--- NOTE | 2016-08-25 14:28 | General Progress Note ---
Subjective - Review of Systems Service Date: 08/25/16 Subjective: awake, nonverbal Objective - Results Result Diagrams: 08/25/16 05:46 08/25/16 05:46 Recent Labs: Laboratory Last Values WBC 17.2 Th/cmm (4.8-10.8) H 08/25/16 05:46 RBC 3.68 Mil/cmm (3.80-5.80) L 08/25/16 05:46 Hgb 10.0 gm/dL (12.6-17.4) L 08/25/16 05:46 Hct 31.1 % (39.0-49.0) L 08/25/16 05:46 MCV 84.5 fl (80-99) 08/25/16 05:46 MCH 27.2 pg (27.0-31.0) 08/25/16 05:46 MCHC Differential 32.2 pg (28.0-36.0) 08/25/16 05:46 RDW 17.7 % (11.5-20.0) 08/25/16 05:46 Plt Count 266 Th/cmm (150-400) D 08/25/16 05:46 MPV 8.6 fl 08/25/16 05:46 Neutrophils % 87.0 % (40.0-80.0) H 08/22/16 13:50 Band Neutrophils % 1 % (0-10) 08/25/16 05:46 Lymphocytes % 6.1 % (20.0-50.0) L 08/22/16 13:50 Monocytes % 5.5 % (2.0-10.0) 08/22/16 13:50 Eosinophils % 1.0 % (0.0-5.0) 08/22/16 13:50 Basophils % 0.4 % (0.0-2.0) 08/22/16 13:50 Neutrophils (Manual) 82 % (40-80) H 08/25/16 05:46 Lymphocytes 7 % (20-50) L 08/25/16 05:46 Monocytes 7 % (2-10) 08/25/16 05:46 Eosinophils 3 % (0-5) 08/25/16 05:46 Basophils 1 % (0-3) 08/23/16 05:45 Platelet Estimate ADEQUATE (NORMAL) 08/25/16 05:46 Platelet Morphology PLATELET CLUMPS SEEN (NORMAL) 08/25/16 05:46 Anisocytosis 1+ 08/25/16 05:46 RBC Morph Micro Appear ABNORMAL (NORMAL) 08/25/16 05:46 ESR > 140 mm/hr (0-20) H 08/22/16 13:00 Eos Smear Source URINE 08/25/16 02:50 Eos Smear Total Cells NONE SEEN (NONE SEEN) 08/25/16 02:50 PT 10.5 SECONDS (9.5-11.5) 08/22/16 13:50 INR 1.01 (0.5-1.4) 08/22/16 13:50 PTT (Actin FS) 25.9 SECONDS (26.0-38.0) L 08/22/16 13:50 Sodium 147 mEq/L (136-145) H 08/25/16 05:46 Potassium 4.3 mEq/L (3.5-5.1) 08/25/16 05:46 Chloride 119 mEq/L (98-107) H 08/25/16 05:46 Carbon Dioxide 23.9 mEq/L (21.0-31.0) 08/25/16 05:46 Anion Gap 8.4 (7.0-16.0) 08/25/16 05:46 BUN 44 mg/dL (7-25) H 08/25/16 05:46 Creatinine 1.2 mg/dL (0.7-1.3) 08/25/16 05:46 Est GFR ( Amer) TNP 08/25/16 05:46 Est GFR (Non-Af Amer) TNP 08/25/16 05:46 BUN/Creatinine Ratio 36.7 08/25/16 05:46 Glucose 168 mg/dL (70-105) H 08/25/16 05:46 POC Glucose 171 MG/DL (70 - 105) H 08/25/16 09:21 Whole Bld Lactic Acid 5.27 mmol/L (0.60-1.99) H* 08/22/16 15:55 Uric Acid 8.1 mg/dL (4.4-7.6) H 08/25/16 05:46 Calcium 9.4 mg/dL (8.6-10.3) 08/25/16 05:46 Phosphorus 2.3 mg/dL (2.5-5.0) L 08/25/16 05:46 Magnesium 2.0 mg/dL (1.9-2.7) 08/25/16 05:46 Total Bilirubin 0.4 mg/dL (0.3-1.0) 08/25/16 05:46 AST 32 U/L (13-39) 08/25/16 05:46 ALT 17 U/L (7-52) 08/25/16 05:46 Alkaline Phosphatase 88 U/L (34-104) 08/25/16 05:46 Creatine Kinase 191 U/L (30-223) 08/22/16 13:50 C-Reactive Protein 26.0 mg/dL (0.0-0.9) H 08/22/16 13:00 Total Protein 8.2 gm/dL (6.0-8.3) 08/25/16 05:46 Albumin 2.4 gm/dL (4.2-5.5) L 08/25/16 05:46 Globulin 5.8 gm/dL 08/25/16 05:46 Albumin/Globulin Ratio 0.4 (1.0-1.8) L 08/25/16 05:46 Urine Source CATH 08/22/16 14:50 Urine Color YELLOW 08/22/16 14:50 Urine Clarity CLOUDY (CLEAR) 08/22/16 14:50 Urine pH 8.5 08/22/16 14:50 Ur Specific [place] 1.015 (1.005-1.030) 08/22/16 14:50 Urine Protein 100 mg/dL (NEGATIVE) H 08/22/16 14:50 Urine Glucose (UA) NEGATIVE mg/dL (NEGATIVE) 08/22/16 14:50 Urine Ketones NEGATIVE mg/dL (NEGATIVE) 08/22/16 14:50 Urine Blood LARGE (NEGATIVE) H 08/22/16 14:50 Urine Nitrate NEGATIVE (NEGATIVE) 08/22/16 14:50 Urine Bilirubin NEGATIVE (NEGATIVE) 08/22/16 14:50 Urine Urobilinogen 1.0 E.U./dL (0.2 - 1.0) 08/22/16 14:50 Ur Leukocyte Esterase LARGE (NEGATIVE) H 08/22/16 14:50 Urine RBC 50-100 /hpf (0-5) H 08/22/16 14:50 Urine WBC 10-25 /hpf (0-5) H 08/22/16 14:50 Ur Epithelial Cells NONE SEEN /lpf (FEW) 08/22/16 14:50 Urine Bacteria FEW /hpf (NONE SEEN) 08/22/16 14:50 Ur Random Sodium 65 mmol/L 08/25/16 02:50 Blood Type O POSITIVE 08/22/16 13:50 Antibody Screen NEGATIVE 08/22/16 13:50 Crossmatch See Detail 08/22/16 13:50 - Physical Exam Vitals and I&O: Vital Signs Temp 98 F 08/25/16 04:00 Pulse 116 08/25/16 04:00 Resp 18 08/25/16 04:00 BP 104/55 08/25/16 04:00 Pulse Ox 100 08/25/16 04:00 Intake & Output 08/24/16 08/25/16 08/25/16 18:59 06:59 18:59 Intake Total 50 1080 Balance 50 1080 Weight (lbs) 58.649 kg Intake: Intake, IV Amount 50 cefTRIAXone 1 gm In 50 Sodium Chloride 0.9% 50 ml @ 100 mls/hr IV Q24HR [facility] Rx#:[id number] Tube Feeding 1080 Other: Stool Characteristics Soft Soft Active Medications: Current Medications Docusate Sodium (Colace) 100 mg PO HS [facility] Stop: 10/21/16 20:59 Last Admin: 08/24/16 22:35 Dose: 100 mg Ferrous Sulfate (Iron) 325 mg PO TID [facility] Stop: 10/21/16 20:59 Last Admin: 08/25/16 10:34 Dose: 325 mg Ceftriaxone Sodium 1 gm/ (Sodium Chloride) 50 mls @ 100 mls/hr IV Q24HR [facility] Stop: 10/22/16 08:59 Last Admin: 08/25/16 10:35 Dose: 100 mls/hr Dextrose (D5w) 1,000 mls @ 75 mls/hr IV .[id number] [facility] Stop: 10/23/16 14:44 Last Admin: 08/25/16 05:57 Dose: 75 mls/hr Insulin Aspart (Novolog Insulin Sliding Scale) 2 - 12 units SUBQ BID [facility] PRN Reason: Protocol Stop: 10/21/16 17:29 Last Admin: 08/25/16 11:00 Dose: 2 units Metformin HCl (Glucophage) 500 mg PO BID [facility] Stop: 10/22/16 09:59 Last Admin: 08/25/16 10:00 Dose: 500 mg General: Alert, No acute distress, Mild distress HEENT: Mucous membr. moist/pink Neck: Supple, +2 carotid pulse wo bruit Cardiovascular: Regular rate, Normal S1, Normal S2 Lungs: Clear to auscultation Abdomen: Bowel sounds, Soft Extremities: no Edema Neurological: Sensation intact Skin: no Rash Psych/Mental Status: Mood NL Assessment/Plan - Problem List Patient Problems: All Active Problems ELEVATED WHITE BLOOD CELL COUNT (Acute) SIRS (systemic inflammatory response syndrome) (Acute) R65.10 anemia (Acute) sirs (Acute) uti (Acute) - Assessment Assessment: ALLISON Type 2 DM dehydration Ess HTN Alzh Dementia Severe Malnutrition Anemia acute on chronic P. mirabilis UTI - Plan Plan: Lab - Result Diagrams 08/25/16 05:46 08/25/16 05:46 Current Medications Docusate Sodium (Colace) 100 mg PO HS [facility] Stop: 10/21/16 20:59 Last Admin: 08/24/16 22:35 Dose: 100 mg Ferrous Sulfate (Iron) 325 mg PO TID [facility] Stop: 10/21/16 20:59 Last Admin: 08/25/16 10:34 Dose: 325 mg Ceftriaxone Sodium 1 gm/ (Sodium Chloride) 50 mls @ 100 mls/hr IV Q24HR [facility] Stop: 10/22/16 08:59 Last Admin: 08/25/16 10:35 Dose: 100 mls/hr Dextrose (D5w) 1,000 mls @ 75 mls/hr IV .[id number] [facility] Stop: 10/23/16 14:44 Last Admin: 08/25/16 05:57 Dose: 75 mls/hr Insulin Aspart (Novolog Insulin Sliding Scale) 2 - 12 units SUBQ BID [facility] PRN Reason: Protocol Stop: 10/21/16 17:29 Last Admin: 08/25/16 11:00 Dose: 2 units Metformin HCl (Glucophage) 500 mg PO BID [facility] Stop: 10/22/16 09:59 Last Admin: 08/25/16 10:00 Dose: 500 mg kideny fnc gradually improving w/ BUN/CR of 44/1.2 Na down to 147 continue ivf & gt feeding f/u electrolytes, cbc Nutritional Asmnt/Malnutr-PDOC - Dietary Evaluation Malnutrition Findings (Please click <Entered> for more info): Nutritional Asmnt/Malnutrition Start: 08/23/16 09: 33 Text: Status: Complete Freq: Document 08/23/16 09:34 TRACEY (Rec: 08/23/16 09:58 [email or web address] [email or web address]) Nutritional Asmnt/Malnutrition Patient General Information Nutritional Screening High Risk Screening Diagnosis ER: Sepsis due to UTI, DM2, HTN Pertinent Medical Hx/Surgical Hx ER: Dementia, DM, HTN Subjective Information 81 year old male from SNF, per ER notes, admitted due to acute severe, abnormal labs. Pt with eyes closed, moving hands around, appeared to be mumbling to self, did not respond to RD. Pt apepared thin overall, mild wasting to temporals. Spoke to RN, pt tolerating tube feeding well, no diarrhea noted. Current Diet Order/ Nutrition Support Diabetisource 60ml/hr x 20hrs, providing 1440kcal. Water flush 200ml qshift Pertinent Medications D5, Colace, Iron, Novolog, Glucophage Pertinent Labs 08/22: BUN 72H, creatinine 1.6H, 161H Nutritional Hx/Data Height 1.7 m Height (Calculated Centimeters) 170.2 Current Weight (lbs) 58.332 kg Weight (Calculated Kilograms) 58.3 Weight (Calculated Grams) 69074.0 [place] Body Weight 148lb Weight Status Approriate GI Symptoms Food Allergies No Cultural/Ethnic/[employer] SNF order: Glucerna 1.5 at 60ml/hr x 20hrs, providing 1800kcal. Water flush 50ml/hr x 20hrs, providing 1000ml. Skin Integrity/Comment: Saul 14. Right hip pressure area. Estimated Nutritional Goals BEE in Kcals: Using Current wt Calories/Kcals/Kg CBW 58.3kg Kcals Calculated 1749-2041kcal (30-35kcal/kg) Protein: Using Current wt Protein Calculated 76-93g (1.3-1.6g/kg) Fluid: ml 1749-2041ml (1ml/kcal) Nutritional Problem 1. Problem Problem Inadequate intake from enteral /parenteral nutrition infusion related to Etiology estimated nutritional needs, hypermetabolic state aeb Signs/Symptoms: only providing to meet 82% of lower end of estimated nutritional needs. Intervention/Recommendation Comments 1. Recommend Diabetisource 65ml/hr x 24hrs, providing 1872kcal, 94g protein, 1276ml free water. Pt was receiving 1800kcal at [facility], current diet order only providing 1440kcal. 2. Recommend 120ml water flush q6hrs when IV discontinued. Expected Outcomes/Goals Expected Outcomes/Goals 1. Pt to meet 100% of estimated nutritional needs on tube feeding with tolerance.
[2016-08-26 07:02] LABS: HEMATOCRIT 28.2 % (39.0-49.0); HEMOGLOBIN 9.3 gm/dL (12.6-17.4); MEAN CELL VOLUME 84.3 fl (80-99); MEAN CORPUSCULAR HEMOGLOBIN 27.9 pg (27.0-31.0); MEAN CORPUSCULAR HGB CONC 33.1 pg (28.0-36.0); MEAN PLATELET VOLUME 8.3 fl; RED BLOOD COUNT 3.34 Mil/cmm (3.80-5.80); RED CELL DISTRIBUTION WIDTH 17.8 % (11.5-20.0)
[2016-08-26 07:18] LABS: PLATELET COUNT 364 Th/cmm (150-400)
[2016-08-26 07:21] LABS: WHITE BLOOD COUNT 16.6 Th/cmm (4.8-10.8)
[2016-08-26 07:29] LABS: ANION GAP 9.9 (7.0-16.0); BUN - UREA NITROGEN 44 mg/dL (7-25); BUN/CREATININE RATIO 36.7; CALCIUM SERUM 9.2 mg/dL (8.6-10.3); CARBON DIOXIDE 25.4 mEq/L (21.0-31.0); CHLORIDE 117 mEq/L (98-107); CREATININE - SERUM 1.2 mg/dL (0.7-1.3); GLUCOSE 144 mg/dL (70-105); POTASSIUM SERUM 4.3 mEq/L (3.5-5.1); SODIUM SERUM 148 mEq/L (136-145)
--- NOTE | 2016-08-26 09:25 | General Progress Note ---
Subjective - Review of Systems Service Date: 08/26/16 Events since last encounter: no distress Subjective: ptis somewhat confused sob still has leukocytosis 16k discussed with id Objective - Results Result Diagrams: 08/26/16 06:33 08/26/16 06:33 Recent Labs: Laboratory Last Values WBC 16.6 Th/cmm (4.8-10.8) H 08/26/16 06:33 RBC 3.34 Mil/cmm (3.80-5.80) L 08/26/16 06:33 Hgb 9.3 gm/dL (12.6-17.4) L 08/26/16 06:33 Hct 28.2 % (39.0-49.0) L 08/26/16 06:33 MCV 84.3 fl (80-99) 08/26/16 06:33 MCH 27.9 pg (27.0-31.0) 08/26/16 06:33 MCHC Differential 33.1 pg (28.0-36.0) 08/26/16 06:33 RDW 17.8 % (11.5-20.0) 08/26/16 06:33 Plt Count 364 Th/cmm (150-400) D 08/26/16 06:33 MPV 8.3 fl 08/26/16 06:33 Neutrophils % 87.0 % (40.0-80.0) H 08/22/16 13:50 Band Neutrophils % 1 % (0-10) 08/25/16 05:46 Lymphocytes % 6.1 % (20.0-50.0) L 08/22/16 13:50 Monocytes % 5.5 % (2.0-10.0) 08/22/16 13:50 Eosinophils % 1.0 % (0.0-5.0) 08/22/16 13:50 Basophils % 0.4 % (0.0-2.0) 08/22/16 13:50 Neutrophils (Manual) 82 % (40-80) H 08/25/16 05:46 Lymphocytes 7 % (20-50) L 08/25/16 05:46 Monocytes 7 % (2-10) 08/25/16 05:46 Eosinophils 3 % (0-5) 08/25/16 05:46 Basophils 1 % (0-3) 08/23/16 05:45 Platelet Estimate ADEQUATE (NORMAL) 08/25/16 05:46 Platelet Morphology PLATELET CLUMPS SEEN (NORMAL) 08/25/16 05:46 Anisocytosis 1+ 08/25/16 05:46 RBC Morph Micro Appear ABNORMAL (NORMAL) 08/25/16 05:46 ESR > 140 mm/hr (0-20) H 08/22/16 13:00 Eos Smear Source URINE 08/25/16 02:50 Eos Smear Total Cells NONE SEEN (NONE SEEN) 08/25/16 02:50 PT 10.5 SECONDS (9.5-11.5) 08/22/16 13:50 INR 1.01 (0.5-1.4) 08/22/16 13:50 PTT (Actin FS) 25.9 SECONDS (26.0-38.0) L 08/22/16 13:50 Sodium 148 mEq/L (136-145) H 08/26/16 06:33 Potassium 4.3 mEq/L (3.5-5.1) 08/26/16 06:33 Chloride 117 mEq/L (98-107) H 08/26/16 06:33 Carbon Dioxide 25.4 mEq/L (21.0-31.0) 08/26/16 06:33 Anion Gap 9.9 (7.0-16.0) 08/26/16 06:33 BUN 44 mg/dL (7-25) H 08/26/16 06:33 Creatinine 1.2 mg/dL (0.7-1.3) 08/26/16 06:33 Est GFR ( Amer) TNP 08/26/16 06:33 Est GFR (Non-Af Amer) TNP 08/26/16 06:33 BUN/Creatinine Ratio 36.7 08/26/16 06:33 Glucose 144 mg/dL (70-105) H 08/26/16 06:33 POC Glucose 145 MG/DL (70 - 105) H 08/25/16 16:58 Whole Bld Lactic Acid 5.27 mmol/L (0.60-1.99) H* 08/22/16 15:55 Uric Acid 8.1 mg/dL (4.4-7.6) H 08/25/16 05:46 Calcium 9.2 mg/dL (8.6-10.3) 08/26/16 06:33 Phosphorus 2.3 mg/dL (2.5-5.0) L 08/25/16 05:46 Magnesium 2.0 mg/dL (1.9-2.7) 08/25/16 05:46 Total Bilirubin 0.4 mg/dL (0.3-1.0) 08/25/16 05:46 AST 32 U/L (13-39) 08/25/16 05:46 ALT 17 U/L (7-52) 08/25/16 05:46 Alkaline Phosphatase 88 U/L (34-104) 08/25/16 05:46 Creatine Kinase 191 U/L (30-223) 08/22/16 13:50 C-Reactive Protein 26.0 mg/dL (0.0-0.9) H 08/22/16 13:00 Total Protein 8.2 gm/dL (6.0-8.3) 08/25/16 05:46 Albumin 2.4 gm/dL (4.2-5.5) L 08/25/16 05:46 Globulin 5.8 gm/dL 08/25/16 05:46 Albumin/Globulin Ratio 0.4 (1.0-1.8) L 08/25/16 05:46 Urine Source CATH 08/22/16 14:50 Urine Color YELLOW 08/22/16 14:50 Urine Clarity CLOUDY (CLEAR) 08/22/16 14:50 Urine pH 8.5 08/22/16 14:50 Ur Specific [place] 1.015 (1.005-1.030) 08/22/16 14:50 Urine Protein 100 mg/dL (NEGATIVE) H 08/22/16 14:50 Urine Glucose (UA) NEGATIVE mg/dL (NEGATIVE) 08/22/16 14:50 Urine Ketones NEGATIVE mg/dL (NEGATIVE) 08/22/16 14:50 Urine Blood LARGE (NEGATIVE) H 08/22/16 14:50 Urine Nitrate NEGATIVE (NEGATIVE) 08/22/16 14:50 Urine Bilirubin NEGATIVE (NEGATIVE) 08/22/16 14:50 Urine Urobilinogen 1.0 E.U./dL (0.2 - 1.0) 08/22/16 14:50 Ur Leukocyte Esterase LARGE (NEGATIVE) H 08/22/16 14:50 Urine RBC 50-100 /hpf (0-5) H 08/22/16 14:50 Urine WBC 10-25 /hpf (0-5) H 08/22/16 14:50 Ur Epithelial Cells NONE SEEN /lpf (FEW) 08/22/16 14:50 Urine Bacteria FEW /hpf (NONE SEEN) 08/22/16 14:50 Ur Random Sodium 65 mmol/L 08/25/16 02:50 Blood Type O POSITIVE 08/22/16 13:50 Antibody Screen NEGATIVE 08/22/16 13:50 Crossmatch See Detail 08/22/16 13:50 - Physical Exam Vitals and I&O: Vital Signs Temp 99.7 F 08/26/16 07:46 Pulse 93 08/26/16 07:46 Resp 18 08/26/16 07:46 BP 104/66 08/26/16 07:46 Pulse Ox 95 08/26/16 07:46 Intake & Output 08/25/16 08/26/16 08/26/16 18:59 06:59 18:59 Intake Total 750 1979 Balance 750 1979 Weight (lbs) 58.649 kg Intake: Intake, IV Amount 1000 Dextrose 5% 1,000 ml @ 75 1000 mls/hr IV .[id number] [facility] Rx#:[id number] Oral 750 Tube Feeding 980 Other: # Voids 4 2 # Bowel Movements 1 Stool Characteristics Soft Formed Active Medications: Current Medications Docusate Sodium (Colace) 100 mg PO HS [facility] Stop: 10/21/16 20:59 Last Admin: 08/25/16 20:36 Dose: 100 mg Ferrous Sulfate (Iron) 325 mg PO TID [facility] Stop: 10/21/16 20:59 Last Admin: 08/25/16 20:36 Dose: 325 mg Dextrose (D5w) 1,000 mls @ 75 mls/hr IV .[id number] [facility] Stop: 10/23/16 14:44 Last Admin: 08/25/16 22:02 Dose: 75 mls/hr Meropenem 1 gm/ Sodium (Chloride) 100 mls @ 100 mls/hr IV Q12HR [facility] Stop: 10/25/16 08:59 Insulin Aspart (Novolog Insulin Sliding Scale) 2 - 12 units SUBQ BID [facility] PRN Reason: Protocol Stop: 10/21/16 17:29 Last Admin: 08/25/16 17:10 Dose: Not Given Metformin HCl (Glucophage) 500 mg PO BID [facility] Stop: 10/22/16 09:59 Last Admin: 08/25/16 17:07 Dose: 500 mg General: Other (very confused) Assessment/Plan - Problem List Patient Problems: All Active Problems Anemia (Acute) D64.9 Dehydration syndrome (Acute) E86.0 Dehydration with hypernatremia (Acute) E87.0 ELEVATED WHITE BLOOD CELL COUNT (Acute) Prerenal azotemia (Acute) R79.89 SIRS (systemic inflammatory response syndrome) (Acute) R65.10 anemia (Acute) persistant leukocytosis (Acute) rosepsis (Acute) sirs (Acute) uti (Acute) - Plan Plan: increse fluis antibiotics Nutritional Asmnt/Malnutr-PDOC - Dietary Evaluation Malnutrition Findings (Please click <Entered> for more info): Nutritional Asmnt/Malnutrition Start: 08/23/16 09: 33 Text: Status: Complete Freq: Document 08/23/16 09:34 GSUN (Rec: 08/23/16 09:58 TRACEY [email or web address]) Nutritional Asmnt/Malnutrition Patient General Information Nutritional Screening High Risk Screening Diagnosis ER: Sepsis due to UTI, DM2, HTN Pertinent Medical Hx/Surgical Hx ER: Dementia, DM, HTN Subjective Information 81 year old male from SNF, per ER notes, admitted due to acute severe, abnormal labs. Pt with eyes closed, moving hands around, appeared to be mumbling to self, did not respond to RD. Pt apepared thin overall, mild wasting to temporals. Spoke to RN, pt tolerating tube feeding well, no diarrhea noted. Current Diet Order/ Nutrition Support Diabetisource 60ml/hr x 20hrs, providing 1440kcal. Water flush 200ml qshift Pertinent Medications D5, Colace, Iron, Novolog, Glucophage Pertinent Labs 4: BUN 72H, creatinine 1.6H, 161H Nutritional Hx/Data Height 1.7 m Height (Calculated Centimeters) 170.2 Current Weight (lbs) 58.332 kg Weight (Calculated Kilograms) 58.3 Weight (Calculated Grams) 50663.0 [place] Body Weight 148lb Weight Status Approriate GI Symptoms Food Allergies No Cultural/Ethnic/Scientologist Belief SNF order: Glucerna 1.5 at 60ml/hr x 20hrs, providing 1800kcal. Water flush 50ml/hr x 20hrs, providing 1000ml. Skin Integrity/Comment: Saul 14. Right hip pressure area. Estimated Nutritional Goals BEE in Kcals: Using Current wt Calories/Kcals/Kg CBW 58.3kg Kcals Calculated 1749-2041kcal (30-35kcal/kg) Protein: Using Current wt Protein Calculated 76-93g (1.3-1.6g/kg) Fluid: ml 1749-2041ml (1ml/kcal) Nutritional Problem 1. Problem Problem Inadequate intake from enteral /parenteral nutrition infusion related to Etiology estimated nutritional needs, hypermetabolic state aeb Signs/Symptoms: only providing to meet 82% of lower end of estimated nutritional needs. Intervention/Recommendation Comments 1. Recommend Diabetisource 65ml/hr x 24hrs, providing 1872kcal, 94g protein, 1276ml free water. Pt was receiving 1800kcal at [facility], current diet order only providing 1440kcal. 2. Recommend 120ml water flush q6hrs when IV discontinued. Expected Outcomes/Goals Expected Outcomes/Goals 1. Pt to meet 100% of estimated nutritional needs on tube feeding with tolerance.
[2016-08-26 09:31] LABS: BAND NEUTROPHILE 2 % (0-10); BASOPHIL 1 % (0-3); EOSINOPHIL 1 % (0-5); NEUTROPHILS 86 % (40-80); TOTAL CELLS COUNTED 100
[2016-08-26 09:32] LABS: ANISOCYTOSIS 1+; PLATELET ESTIMATE ADEQUATE (NORMAL); PLATELET MORPHOLOGY PLATELET CLUMPS SEEN (NORMAL)
[2016-08-26] MEDS: Meropenem 1 GM in Sodium Chloride 0.9% 100 ML IV SCH ×2 (09:39→21:11)
[2016-08-26] MEDS: Ferrous Sulfate 325 MG TAB PO SCH ×3 (09:40→21:31)
[2016-08-26] MEDS: INSULIN ASPART SLIDING SCALE 100 UNITS/ML UNIT SUBQ SCH ×2 (09:41→17:17)
--- NOTE | 2016-08-26 15:27 | General Progress Note ---
Subjective - Review of Systems Service Date: 08/26/16 Subjective: sleeping, nonverbal, comfortable Objective - Results Result Diagrams: 08/26/16 06:33 08/26/16 06:33 Recent Labs: Laboratory Last Values WBC 16.6 Th/cmm (4.8-10.8) H 08/26/16 06:33 RBC 3.34 Mil/cmm (3.80-5.80) L 08/26/16 06:33 Hgb 9.3 gm/dL (12.6-17.4) L 08/26/16 06:33 Hct 28.2 % (39.0-49.0) L 08/26/16 06:33 MCV 84.3 fl (80-99) 08/26/16 06:33 MCH 27.9 pg (27.0-31.0) 08/26/16 06:33 MCHC Differential 33.1 pg (28.0-36.0) 08/26/16 06:33 RDW 17.8 % (11.5-20.0) 08/26/16 06:33 Plt Count 364 Th/cmm (150-400) D 08/26/16 06:33 MPV 8.3 fl 08/26/16 06:33 Neutrophils % 87.0 % (40.0-80.0) H 08/22/16 13:50 Band Neutrophils % 2 % (0-10) 08/26/16 06:33 Lymphocytes % 6.1 % (20.0-50.0) L 08/22/16 13:50 Monocytes % 5.5 % (2.0-10.0) 08/22/16 13:50 Eosinophils % 1.0 % (0.0-5.0) 08/22/16 13:50 Basophils % 0.4 % (0.0-2.0) 08/22/16 13:50 Neutrophils (Manual) 86 % (40-80) H 08/26/16 06:33 Lymphocytes 5 % (20-50) L 08/26/16 06:33 Monocytes 5 % (2-10) 08/26/16 06:33 Eosinophils 1 % (0-5) 08/26/16 06:33 Basophils 1 % (0-3) 08/26/16 06:33 Nucleated RBCs 1.0 % (0-0) H 08/26/16 06:33 Platelet Estimate ADEQUATE (NORMAL) 08/26/16 06:33 Platelet Morphology PLATELET CLUMPS SEEN (NORMAL) 08/26/16 06:33 Anisocytosis 1+ 08/26/16 06:33 RBC Morph Micro Appear ABNORMAL (NORMAL) 08/26/16 06:33 ESR > 140 mm/hr (0-20) H 08/22/16 13:00 Eos Smear Source URINE 08/25/16 02:50 Eos Smear Total Cells NONE SEEN (NONE SEEN) 08/25/16 02:50 PT 10.5 SECONDS (9.5-11.5) 08/22/16 13:50 INR 1.01 (0.5-1.4) 08/22/16 13:50 PTT (Actin FS) 25.9 SECONDS (26.0-38.0) L 08/22/16 13:50 Sodium 148 mEq/L (136-145) H 08/26/16 06:33 Potassium 4.3 mEq/L (3.5-5.1) 08/26/16 06:33 Chloride 117 mEq/L (98-107) H 08/26/16 06:33 Carbon Dioxide 25.4 mEq/L (21.0-31.0) 08/26/16 06:33 Anion Gap 9.9 (7.0-16.0) 08/26/16 06:33 BUN 44 mg/dL (7-25) H 08/26/16 06:33 Creatinine 1.2 mg/dL (0.7-1.3) 08/26/16 06:33 Est GFR ( Amer) TNP 08/26/16 06:33 Est GFR (Non-Af Amer) TNP 08/26/16 06:33 BUN/Creatinine Ratio 36.7 08/26/16 06:33 Glucose 144 mg/dL (70-105) H 08/26/16 06:33 POC Glucose 205 MG/DL (70 - 105) H 08/26/16 09:38 Whole Bld Lactic Acid 5.27 mmol/L (0.60-1.99) H* 08/22/16 15:55 Uric Acid 8.1 mg/dL (4.4-7.6) H 08/25/16 05:46 Calcium 9.2 mg/dL (8.6-10.3) 08/26/16 06:33 Phosphorus 2.3 mg/dL (2.5-5.0) L 08/25/16 05:46 Magnesium 2.0 mg/dL (1.9-2.7) 08/25/16 05:46 Total Bilirubin 0.4 mg/dL (0.3-1.0) 08/25/16 05:46 AST 32 U/L (13-39) 08/25/16 05:46 ALT 17 U/L (7-52) 08/25/16 05:46 Alkaline Phosphatase 88 U/L (34-104) 08/25/16 05:46 Creatine Kinase 191 U/L (30-223) 08/22/16 13:50 C-Reactive Protein 26.0 mg/dL (0.0-0.9) H 08/22/16 13:00 Total Protein 8.2 gm/dL (6.0-8.3) 08/25/16 05:46 Albumin 2.4 gm/dL (4.2-5.5) L 08/25/16 05:46 Globulin 5.8 gm/dL 08/25/16 05:46 Albumin/Globulin Ratio 0.4 (1.0-1.8) L 08/25/16 05:46 Urine Source CATH 08/22/16 14:50 Urine Color YELLOW 08/22/16 14:50 Urine Clarity CLOUDY (CLEAR) 08/22/16 14:50 Urine pH 8.5 08/22/16 14:50 Ur Specific [place] 1.015 (1.005-1.030) 08/22/16 14:50 Urine Protein 100 mg/dL (NEGATIVE) H 08/22/16 14:50 Urine Glucose (UA) NEGATIVE mg/dL (NEGATIVE) 08/22/16 14:50 Urine Ketones NEGATIVE mg/dL (NEGATIVE) 08/22/16 14:50 Urine Blood LARGE (NEGATIVE) H 08/22/16 14:50 Urine Nitrate NEGATIVE (NEGATIVE) 08/22/16 14:50 Urine Bilirubin NEGATIVE (NEGATIVE) 08/22/16 14:50 Urine Urobilinogen 1.0 E.U./dL (0.2 - 1.0) 08/22/16 14:50 Ur Leukocyte Esterase LARGE (NEGATIVE) H 08/22/16 14:50 Urine RBC 50-100 /hpf (0-5) H 08/22/16 14:50 Urine WBC 10-25 /hpf (0-5) H 08/22/16 14:50 Ur Epithelial Cells NONE SEEN /lpf (FEW) 08/22/16 14:50 Urine Bacteria FEW /hpf (NONE SEEN) 08/22/16 14:50 Ur Random Sodium 65 mmol/L 08/25/16 02:50 Blood Type O POSITIVE 08/22/16 13:50 Antibody Screen NEGATIVE 08/22/16 13:50 Crossmatch See Detail 08/22/16 13:50 - Physical Exam Vitals and I&O: Vital Signs Temp 99.7 F 08/26/16 07:46 Pulse 93 08/26/16 07:46 Resp 18 08/26/16 08:00 BP 104/66 08/26/16 07:46 Pulse Ox 95 08/26/16 07:46 Intake & Output 08/25/16 08/26/16 08/26/16 18:59 06:59 18:59 Intake Total 750 1979 Balance 750 1979 Weight (lbs) 58.649 kg Intake: Intake, IV Amount 1000 100 Dextrose 5% 1,000 ml @ 75 1000 mls/hr IV .[id number] [facility] Rx#:[id number] Meropenem 1 gm In Sodium 100 Chloride 0.9% 100 ml @ 100 mls/hr IV Q12HR [facility] Rx#:[id number] Oral 750 Tube Feeding 980 Other: # Voids 4 2 # Bowel Movements 1 Stool Characteristics Soft Soft Formed Formed Active Medications: Current Medications Docusate Sodium (Colace) 100 mg PO HS [facility] Stop: 10/21/16 20:59 Last Admin: 08/25/16 20:36 Dose: 100 mg Ferrous Sulfate (Iron) 325 mg PO TID [facility] Stop: 10/21/16 20:59 Last Admin: 08/26/16 09:40 Dose: 325 mg Dextrose (D5w) 1,000 mls @ 75 mls/hr IV .[id number] [facility] Stop: 10/23/16 14:44 Last Admin: 08/25/16 22:02 Dose: 75 mls/hr Meropenem 1 gm/ Sodium (Chloride) 100 mls @ 100 mls/hr IV Q12HR [facility] Stop: 10/25/16 08:59 Last Infusion: 08/26/16 10:50 Dose: Infused Insulin Aspart (Novolog Insulin Sliding Scale) 2 - 12 units SUBQ BID [facility] PRN Reason: Protocol Stop: 10/21/16 17:29 Last Admin: 08/26/16 09:41 Dose: 4 units Metformin HCl (Glucophage) 500 mg PO BID [facility] Stop: 10/22/16 09:59 Last Admin: 08/26/16 09:40 Dose: 500 mg General: No acute distress HEENT: Atraumatic, Mucous membr. moist/pink Neck: Supple, +2 carotid pulse wo bruit Cardiovascular: Regular rate, Normal S1, Normal S2 Lungs: Clear to auscultation Abdomen: Bowel sounds, Soft Extremities: no Edema Neurological: Sensation intact Skin: no Rash Psych/Mental Status: Mood NL Assessment/Plan - Problem List Patient Problems: All Active Problems ELEVATED WHITE BLOOD CELL COUNT (Acute) SIRS (systemic inflammatory response syndrome) (Acute) R65.10 anemia (Acute) sirs (Acute) uti (Acute) - Assessment Assessment: ALLISON Type 2 DM dehydration Ess HTN Alzh Dementia Severe Malnutrition Anemia acute on chronic P. mirabilis UTI Hypernatremia - Plan Plan: Lab - Result Diagrams 08/25/16 05:46 08/25/16 05:46 Current Medications Docusate Sodium (Colace) 100 mg PO HS [facility] Stop: 10/21/16 20:59 Last Admin: 08/24/16 22:35 Dose: 100 mg Ferrous Sulfate (Iron) 325 mg PO TID [facility] Stop: 10/21/16 20:59 Last Admin: 08/25/16 10:34 Dose: 325 mg Ceftriaxone Sodium 1 gm/ (Sodium Chloride) 50 mls @ 100 mls/hr IV Q24HR [facility] Stop: 10/22/16 08:59 Last Admin: 08/25/16 10:35 Dose: 100 mls/hr Dextrose (D5w) 1,000 mls @ 75 mls/hr IV .[id number] [facility] Stop: 10/23/16 14:44 Last Admin: 08/25/16 05:57 Dose: 75 mls/hr Insulin Aspart (Novolog Insulin Sliding Scale) 2 - 12 units SUBQ BID [facility] PRN Reason: Protocol Stop: 10/21/16 17:29 Last Admin: 08/25/16 11:00 Dose: 2 units Metformin HCl (Glucophage) 500 mg PO BID [facility] Stop: 10/22/16 09:59 Last Admin: 08/25/16 10:00 Dose: 500 mg usama fn the same w/ BUN/CR of 44/1.2 Na down to 148 continue ivf & gt feeding f/u electrolytes, cbc on IVF D5W @ 75ml/hr Nutritional Asmnt/Malnutr-PDOC - Dietary Evaluation Malnutrition Findings (Please click <Entered> for more info): Nutritional Asmnt/Malnutrition Start: 08/23/16 09: 33 Text: Status: Complete Freq: Document 08/23/16 09:34 GSUN (Rec: 08/23/16 09:58 [email or web address] [email or web address]) Nutritional Asmnt/Malnutrition Patient General Information Nutritional Screening High Risk Screening Diagnosis ER: Sepsis due to UTI, DM2, HTN Pertinent Medical Hx/Surgical Hx ER: Dementia, DM, HTN Subjective Information 81 year old male from SNF, per ER notes, admitted due to acute severe, abnormal labs. Pt with eyes closed, moving hands around, appeared to be mumbling to self, did not respond to RD. Pt apepared thin overall, mild wasting to temporals. Spoke to RN, pt tolerating tube feeding well, no diarrhea noted. Current Diet Order/ Nutrition Support Diabetisource 60ml/hr x 20hrs, providing 1440kcal. Water flush 200ml qshift Pertinent Medications D5, Colace, Iron, Novolog, Glucophage Pertinent Labs 08/22: BUN 72H, creatinine 1.6H, 161H Nutritional Hx/Data Height 1.7 m Height (Calculated Centimeters) 170.2 Current Weight (lbs) 58.332 kg Weight (Calculated Kilograms) 58.3 Weight (Calculated Grams) 50173.0 [place] Body Weight 148lb Weight Status Approriate GI Symptoms Food Allergies No Cultural/Ethnic/Zoroastrianism Belief SNF order: Glucerna 1.5 at 60ml/hr x 20hrs, providing 1800kcal. Water flush 50ml/hr x 20hrs, providing 1000ml. Skin Integrity/Comment: Saul 14. Right hip pressure area. Estimated Nutritional Goals BEE in Kcals: Using Current wt Calories/Kcals/Kg CBW 58.3kg Kcals Calculated 1749-2041kcal (30-35kcal/kg) Protein: Using Current wt Protein Calculated 76-93g (1.3-1.6g/kg) Fluid: ml 1749-2041ml (1ml/kcal) Nutritional Problem 1. Problem Problem Inadequate intake from enteral /parenteral nutrition infusion related to Etiology estimated nutritional needs, hypermetabolic state aeb Signs/Symptoms: only providing to meet 82% of lower end of estimated nutritional needs. Intervention/Recommendation Comments 1. Recommend Diabetisource 65ml/hr x 24hrs, providing 1872kcal, 94g protein, 1276ml free water. Pt was receiving 1800kcal at [facility], current diet order only providing 1440kcal. 2. Recommend 120ml water flush q6hrs when IV discontinued. Expected Outcomes/Goals Expected Outcomes/Goals 1. Pt to meet 100% of estimated nutritional needs on tube feeding with tolerance.
[2016-08-26] MEDS: Dextrose 5% 1,000 ML IV SCH (17:24)
[2016-08-26 18:08] LABS: MICROALBUMIN RANDOM RUINE 56.2 ug/mL (Not Estab.)
--- NOTE | 2016-08-26 20:38 | Consultation ---
Consult Note - Consult Note Service Date: 08/26/16 Referring Physician: Edgardo Leong Consult Note: PHYSICIAN Consultation Note: Date of Admission: 08/22/16 Purpose of Consultation: Chief Complaint:Patient EVAN QUINTANA was admitted to location Medical/Surgical Unit I with UROSEPSIS W/UTI. History of Present Illness: Patient is 81 y female with history of DM2 HTN presented to the hospital for severe, abnormal labs that were noticed about 2 hours prior to arrival. Patient has abnormal hemoglobin, BUN, and severe leukocytosis. On initial evaluation, her temperature was 99.1 degree F and WBC count was 17,300. and UA showed evidence of UTI. Patient was started on rocephin. However, her WBC count remained elevated, so ID consult was called for further evaluation. Past Medical History: DM2 HTN. Diagnoses SEPSIS, UNSPECIFIED ORGANISM (08/22/16) PROTEUS (MIRABILIS) (MORGANII) CAUSING DIS CLASSD ELSWHR (08/22/16) ANEMIA, UNSPECIFIED (08/22/16) TYPE 2 DIABETES MELLITUS WITHOUT COMPLICATIONS (08/22/16) UNSPECIFIED SEVERE PROTEIN-CALORIE MALNUTRITION (08/22/16) DEHYDRATION (08/22/16) UNSPECIFIED DEMENTIA WITHOUT BEHAVIORAL DISTURBANCE (08/22/16) METABOLIC ENCEPHALOPATHY (08/22/16) ESSENTIAL (PRIMARY) HYPERTENSION (08/22/16) ACUTE KIDNEY FAILURE, UNSPECIFIED (08/22/16) URINARY TRACT INFECTION, SITE NOT SPECIFIED (08/22/16) GASTROSTOMY STATUS (08/22/16) Allergies Allergy/AdvReac Type Severity Reaction Status Date / Time No Known Allergies Allergy Verified 08/22/16 13:46 Vital Signs Temp 99.7 F 08/26/16 07:46 Pulse 93 08/26/16 07:46 Resp 18 08/26/16 08:00 BP 104/66 08/26/16 07:46 Pulse Ox 95 08/26/16 07:46 Intake & Output 08/26/16 08/26/16 08/27/16 06:59 18:59 06:59 Intake Total 1979 2279 Balance 1979 2279 Intake: Intake, IV Amount 1000 1100 Dextrose 5% 1,000 ml @ 75 1000 1000 mls/hr IV .[id number] [facility] Rx#:[id number] Meropenem 1 gm In Sodium 100 Chloride 0.9% 100 ml @ 100 mls/hr IV Q12HR [facility] Rx#:[id number] Tube Feeding 980 780 Other 400 Other: # Voids 2 3 # Bowel Movements 1 0 Stool Characteristics Soft Soft Formed Formed Laboratory Results - last 24 hr 08/25/16 08/26/16 08/26/16 02:50 06:33 06:33 WBC 16.6 H RBC 3.34 L Hgb 9.3 L Hct 28.2 L MCV 84.3 MCH 27.9 MCHC Differential 33.1 RDW 17.8 Plt Count 364 D MPV 8.3 Band Neutrophils % 2 Neutrophils (Manual) 86 H Lymphocytes 5 L Monocytes 5 Eosinophils 1 Basophils 1 Nucleated RBCs 1.0 H Platelet Estimate ADEQUATE Platelet Morphology PLATELET CLUMPS SEEN Anisocytosis 1+ RBC Morph Micro Appear ABNORMAL Sodium 148 H Potassium 4.3 Chloride 117 H Carbon Dioxide 25.4 Anion Gap 9.9 BUN 44 H Creatinine 1.2 Est GFR ( Amer) TNP Est GFR (Non-Af Amer) TNP BUN/Creatinine Ratio 36.7 Glucose 144 H POC Glucose Calcium 9.2 Urine Creatinine 33.7 Urine Microalbumin 56.2 Microalb/Creat Ratio 166.8 H 08/26/16 08/26/16 09:38 17:15 WBC RBC Hgb Hct MCV MCH MCHC Differential RDW Plt Count MPV Band Neutrophils % Neutrophils (Manual) Lymphocytes Monocytes Eosinophils Basophils Nucleated RBCs Platelet Estimate Platelet Morphology Anisocytosis RBC Morph Micro Appear Sodium Potassium Chloride Carbon Dioxide Anion Gap BUN Creatinine Est GFR ( Amer) Est GFR (Non-Af Amer) BUN/Creatinine Ratio Glucose POC Glucose 205 H 131 H Calcium Urine Creatinine Urine Microalbumin Microalb/Creat Ratio Home Medication Medication Instructions Recorded Type Acetaminophen [Tylenol] 325 mg GT Q4HR PRN 08/22/16 History Ascorbic Acid [Vitamin C] 500 mg GT BID 08/22/16 History Aspirin [Aspirin Chewable] 81 mg GT DAILY 08/22/16 History Docusate Sodium [Colace] 100 mg GT HS 08/22/16 History Ferrous Sulfate [Ferosul] 330 mg GT BID 08/22/16 History Insulin Human Regular [NovoLIN R] 0 units SUBQ DAILY 08/22/16 History Multivitamin w/ Minerals 1 tab GT DAILY 08/22/16 History [Theragran M] Omeprazole 20 mg GT 1300 08/22/16 History Prostat Sf 30 ml GT DAILY 08/22/16 History Zinc Oxide [Skin Protectant] 1 unit TP QSHIFT 08/22/16 History metFORMIN [Glucophage] 500 mg GT BID 08/22/16 History Current Medications Generic Name Dose Route Start Last Admin Trade Name Freq PRN Reason Stop Dose Admin Docusate Sodium 100 mg 08/22/16 21:00 08/25/16 20:36 Colace PO 10/21/16 20:59 100 mg HS LISA Administration Ferrous Sulfate 325 mg 08/22/16 21:00 08/26/16 15:50 Iron PO 10/21/16 20:59 325 mg TID LISA Administration Dextrose 1,000 mls @ 75 mls/hr 08/24/16 14:45 08/26/16 17:24 D5w IV 10/23/16 14:44 75 mls/hr .[id number] LISA Administration Meropenem 1 gm/ Sodium 100 mls @ 100 mls/hr 08/26/16 09:00 08/26/16 10:50 Chloride IV 10/25/16 08:59 Infused Q12HR LISA Infusion Insulin Aspart 2 - 12 units 08/22/16 17:30 08/26/16 17:17 Novolog Insulin Sliding Scale SUBQ 10/21/16 17:29 Not Given BID LISA Protocol Metformin HCl 500 mg 08/23/16 10:00 08/26/16 17:16 Glucophage PO 10/22/16 09:59 500 mg BID LISA Administration Review of Systems: A 12 point ROS was reviewed with the pertinent positive and negatives noted in the HPI. Social History Smoking Status Former smoker Drug Use No Alcohol Use No Family Medical History Family Medical History Start: 08/22/16 15: 59 Freq: ONCE Status: Active Document 08/22/16 16:54 [email or web address] (Rec: 08/22/16 17:22 [email or web address] [id number] ) Family Medical History Mother History Unknown Yes Physical Exam: General: Mildly cachectic, not in distress HEENT: EOMI Bilaterally, PERRLA Bilaterally, Head is normocephalic, atraumatic on inspection. Cardio: +S1/S2 Auscultated, RRR, no murmurs/rubs/gallops noted Respiratory: Clear to Auscultate Bilaterally Abdominal: Soft, Nondistended, Nontender to palpation x 4 quadrants, G tube intact. Genital/Urinary: WNL Extremities: No Edema noted in the lower extremities Neurological: Demented, alert and awake, aphasic.No Focal Deficits noted. SKIN: Left hipe stage 2 wound, no erythema, no discharge, no pus. Assessment/Plan: Leukocytosis persistent. UTI DM2 HTN. Right hip stage 2 wound, no sign of infection. RECOMMENDATONS: Will change antibiotics to meropenem. Check CT A/P. Hematology consultation. Signed, Tigre Amaro M.D. [id number]
[2016-08-27 06:10] LABS: HEMATOCRIT 26.7 % (39.0-49.0); HEMOGLOBIN 8.9 gm/dL (12.6-17.4); MEAN CELL VOLUME 83.3 fl (80-99); MEAN CORPUSCULAR HEMOGLOBIN 27.9 pg (27.0-31.0); MEAN CORPUSCULAR HGB CONC 33.4 pg (28.0-36.0); MEAN PLATELET VOLUME 8.2 fl; RED CELL DISTRIBUTION WIDTH 18.2 % (11.5-20.0)
[2016-08-27 06:15] LABS: ANION GAP 5.8 (7.0-16.0); BUN - UREA NITROGEN 40 mg/dL (7-25); BUN/CREATININE RATIO 36.4; CALCIUM SERUM 9.2 mg/dL (8.6-10.3); CARBON DIOXIDE 25.3 mEq/L (21.0-31.0); CHLORIDE 114 mEq/L (98-107); CREATININE - SERUM 1.1 mg/dL (0.7-1.3); GLUCOSE 131 mg/dL (70-105); POTASSIUM SERUM 4.1 mEq/L (3.5-5.1); SODIUM SERUM 141 mEq/L (136-145)
[2016-08-27 06:27] LABS: PLATELET COUNT 255 Th/cmm (150-400); WHITE BLOOD COUNT 14.4 Th/cmm (4.8-10.8)
[2016-08-27 06:48] LABS: BAND NEUTROPHILE 7 % (0-10); BASOPHIL 0 % (0-3); EOSINOPHIL 1 % (0-5); NEUTROPHILS 81 % (40-80); PLATELET ESTIMATE ADEQUATE (NORMAL); PLATELET MORPHOLOGY PLATELET CLUMPS SEEN (NORMAL); TOTAL CELLS COUNTED 100
[2016-08-27] MEDS: Dextrose 5% 1,000 ML IV SCH ×2 (08:08→21:33)
[2016-08-27] MEDS: Meropenem 1 GM in Sodium Chloride 0.9% 100 ML IV SCH ×2 (09:16→21:19)
[2016-08-27] MEDS: Ferrous Sulfate 325 MG TAB PO SCH ×3 (09:16→21:20)
[2016-08-27] MEDS: INSULIN ASPART SLIDING SCALE 100 UNITS/ML UNIT SUBQ SCH ×2 (09:17→17:47)
--- NOTE | 2016-08-27 10:49 | General Progress Note ---
Subjective - Review of Systems Subjective: ptis somewhat confused sob still has leukocytosis 16k discussed with id Objective - Results Result Diagrams: 08/27/16 05:43 08/27/16 05:43 Recent Labs: Laboratory Last Values WBC 14.4 Th/cmm (4.8-10.8) H 08/27/16 05:43 RBC 3.20 Mil/cmm (3.80-5.80) L 08/27/16 05:43 Hgb 8.9 gm/dL (12.6-17.4) L 08/27/16 05:43 Hct 26.7 % (39.0-49.0) L 08/27/16 05:43 MCV 83.3 fl (80-99) 08/27/16 05:43 MCH 27.9 pg (27.0-31.0) 08/27/16 05:43 MCHC Differential 33.4 pg (28.0-36.0) 08/27/16 05:43 RDW 18.2 % (11.5-20.0) 08/27/16 05:43 Plt Count 255 Th/cmm (150-400) D 08/27/16 05:43 MPV 8.2 fl 08/27/16 05:43 Neutrophils % 87.0 % (40.0-80.0) H 08/22/16 13:50 Band Neutrophils % 7 % (0-10) 08/27/16 05:43 Lymphocytes % 6.1 % (20.0-50.0) L 08/22/16 13:50 Monocytes % 5.5 % (2.0-10.0) 08/22/16 13:50 Eosinophils % 1.0 % (0.0-5.0) 08/22/16 13:50 Basophils % 0.4 % (0.0-2.0) 08/22/16 13:50 Neutrophils (Manual) 81 % (40-80) H 08/27/16 05:43 Lymphocytes 7 % (20-50) L 08/27/16 05:43 Monocytes 4 % (2-10) 08/27/16 05:43 Eosinophils 1 % (0-5) 08/27/16 05:43 Basophils 0 % (0-3) 08/27/16 05:43 Nucleated RBCs 1.0 % (0-0) H 08/26/16 06:33 Platelet Estimate ADEQUATE (NORMAL) 08/27/16 05:43 Platelet Morphology PLATELET CLUMPS SEEN (NORMAL) 08/27/16 05:43 Anisocytosis 1+ 08/26/16 06:33 RBC Morph Micro Appear NORMAL (NORMAL) 08/27/16 05:43 ESR > 140 mm/hr (0-20) H 08/22/16 13:00 Eos Smear Source URINE 08/25/16 02:50 Eos Smear Total Cells NONE SEEN (NONE SEEN) 08/25/16 02:50 PT 10.5 SECONDS (9.5-11.5) 08/22/16 13:50 INR 1.01 (0.5-1.4) 08/22/16 13:50 PTT (Actin FS) 25.9 SECONDS (26.0-38.0) L 08/22/16 13:50 Sodium 141 mEq/L (136-145) 08/27/16 05:43 Potassium 4.1 mEq/L (3.5-5.1) 08/27/16 05:43 Chloride 114 mEq/L (98-107) H 08/27/16 05:43 Carbon Dioxide 25.3 mEq/L (21.0-31.0) 08/27/16 05:43 Anion Gap 5.8 (7.0-16.0) L 08/27/16 05:43 BUN 40 mg/dL (7-25) H 08/27/16 05:43 Creatinine 1.1 mg/dL (0.7-1.3) 08/27/16 05:43 Est GFR ( Amer) TNP 08/27/16 05:43 Est GFR (Non-Af Amer) TNP 08/27/16 05:43 BUN/Creatinine Ratio 36.4 08/27/16 05:43 Glucose 131 mg/dL (70-105) H 08/27/16 05:43 POC Glucose 150 MG/DL (70 - 105) H 08/27/16 09:15 Whole Bld Lactic Acid 5.27 mmol/L (0.60-1.99) H* 08/22/16 15:55 Uric Acid 8.1 mg/dL (4.4-7.6) H 08/25/16 05:46 Calcium 9.2 mg/dL (8.6-10.3) 08/27/16 05:43 Phosphorus 2.3 mg/dL (2.5-5.0) L 08/25/16 05:46 Magnesium 2.0 mg/dL (1.9-2.7) 08/25/16 05:46 Total Bilirubin 0.4 mg/dL (0.3-1.0) 08/25/16 05:46 AST 32 U/L (13-39) 08/25/16 05:46 ALT 17 U/L (7-52) 08/25/16 05:46 Alkaline Phosphatase 88 U/L (34-104) 08/25/16 05:46 Creatine Kinase 191 U/L (30-223) 08/22/16 13:50 C-Reactive Protein 26.0 mg/dL (0.0-0.9) H 08/22/16 13:00 Total Protein 8.2 gm/dL (6.0-8.3) 08/25/16 05:46 Albumin 2.4 gm/dL (4.2-5.5) L 08/25/16 05:46 Globulin 5.8 gm/dL 08/25/16 05:46 Albumin/Globulin Ratio 0.4 (1.0-1.8) L 08/25/16 05:46 Urine Source CATH 08/22/16 14:50 Urine Color YELLOW 08/22/16 14:50 Urine Clarity CLOUDY (CLEAR) 08/22/16 14:50 Urine pH 8.5 08/22/16 14:50 Ur Specific [place] 1.015 (1.005-1.030) 08/22/16 14:50 Urine Protein 100 mg/dL (NEGATIVE) H 08/22/16 14:50 Urine Glucose (UA) NEGATIVE mg/dL (NEGATIVE) 08/22/16 14:50 Urine Ketones NEGATIVE mg/dL (NEGATIVE) 08/22/16 14:50 Urine Blood LARGE (NEGATIVE) H 08/22/16 14:50 Urine Nitrate NEGATIVE (NEGATIVE) 08/22/16 14:50 Urine Bilirubin NEGATIVE (NEGATIVE) 08/22/16 14:50 Urine Urobilinogen 1.0 E.U./dL (0.2 - 1.0) 08/22/16 14:50 Ur Leukocyte Esterase LARGE (NEGATIVE) H 08/22/16 14:50 Urine RBC 50-100 /hpf (0-5) H 08/22/16 14:50 Urine WBC 10-25 /hpf (0-5) H 08/22/16 14:50 Ur Epithelial Cells NONE SEEN /lpf (FEW) 08/22/16 14:50 Urine Bacteria FEW /hpf (NONE SEEN) 08/22/16 14:50 Ur Random Sodium 65 mmol/L 08/25/16 02:50 Urine Creatinine 33.7 mg/dl (Not Estab.) 08/25/16 02:50 Urine Microalbumin 56.2 ug/mL (Not Estab.) 08/25/16 02:50 Microalb/Creat Ratio 166.8 mg/g creat (0.0-30.0) H 08/25/16 02:50 Blood Type O POSITIVE 08/22/16 13:50 Antibody Screen NEGATIVE 08/22/16 13:50 Crossmatch See Detail 08/22/16 13:50 - Physical Exam Vitals and I&O: Vital Signs Temp 99.0 F 08/27/16 04:00 Pulse 101 08/27/16 04:00 Resp 20 08/27/16 04:00 BP 109/68 08/27/16 04:00 Pulse Ox 98 08/27/16 04:00 Intake & Output 08/26/16 08/27/16 08/27/16 18:59 06:59 18:59 Intake Total 2280 1999 Balance 2280 1999 Intake: Intake, IV Amount 1100 1100 Dextrose 5% 1,000 ml @ 75 1000 1000 mls/hr IV .[id number] [facility] Rx#:[id number] Meropenem 1 gm In Sodium 100 100 Chloride 0.9% 100 ml @ 100 mls/hr IV Q12HR [facility] Rx#:[id number] Tube Feeding 780 780 Other 400 120 Other: # Voids 3 2 # Bowel Movements 0 1 Stool Characteristics Soft Formed Active Medications: Current Medications Docusate Sodium (Colace) 100 mg PO HS LISA Stop: 10/21/16 20:59 Last Admin: 08/26/16 21:31 Dose: 100 mg Ferrous Sulfate (Iron) 325 mg PO TID LISA Stop: 10/21/16 20:59 Last Admin: 08/27/16 09:16 Dose: 325 mg Dextrose (D5w) 1,000 mls @ 75 mls/hr IV .[id number] [facility] Stop: 10/23/16 14:44 Last Admin: 08/27/16 08:08 Dose: 75 mls/hr Meropenem 1 gm/ Sodium (Chloride) 100 mls @ 100 mls/hr IV Q12HR [facility] Stop: 10/25/16 08:59 Last Admin: 08/27/16 09:16 Dose: 100 mls/hr Insulin Aspart (Novolog Insulin Sliding Scale) 2 - 12 units SUBQ BID [facility] PRN Reason: Protocol Stop: 10/21/16 17:29 Last Admin: 08/27/16 09:17 Dose: Not Given Metformin HCl (Glucophage) 500 mg PO BID [facility] Stop: 10/22/16 09:59 Last Admin: 08/27/16 09:16 Dose: 500 mg Assessment/Plan - Problem List Patient Problems: All Active Problems Anemia (Acute) D64.9 Dehydration syndrome (Acute) E86.0 Dehydration with hypernatremia (Acute) E87.0 ELEVATED WHITE BLOOD CELL COUNT (Acute) Prerenal azotemia (Acute) R79.89 SIRS (systemic inflammatory response syndrome) (Acute) R65.10 anemia (Acute) persistant leukocytosis (Acute) rosepsis (Acute) sirs (Acute) uti (Acute) - Plan Plan: increse fluis antibiotics Nutritional Asmnt/Malnutr-PDOC - Dietary Evaluation Malnutrition Findings (Please click <Entered> for more info): Nutritional Asmnt/Malnutrition Start: 08/23/16 09: 33 Text: Status: Complete Freq: Document 08/23/16 09:34 GSUN (Rec: 08/23/16 09:58 [email or web address]) Nutritional Asmnt/Malnutrition Patient General Information Nutritional Screening High Risk Screening Diagnosis ER: Sepsis due to UTI, DM2, HTN Pertinent Medical Hx/Surgical Hx ER: Dementia, DM, HTN Subjective Information 81 year old male from SNF, per ER notes, admitted due to acute severe, abnormal labs. Pt with eyes closed, moving hands around, appeared to be mumbling to self, did not respond to RD. Pt apepared thin overall, mild wasting to temporals. Spoke to RN, pt tolerating tube feeding well, no diarrhea noted. Current Diet Order/ Nutrition Support Diabetisource 60ml/hr x 20hrs, providing 1440kcal. Water flush 200ml qshift Pertinent Medications D5, Colace, Iron, Novolog, Glucophage Pertinent Labs /: BUN 72H, creatinine 1.6H, 161H Nutritional Hx/Data Height 1.7 m Height (Calculated Centimeters) 170.2 Current Weight (lbs) 58.332 kg Weight (Calculated Kilograms) 58.3 Weight (Calculated Grams) 03918.0 [place] Body Weight 148lb Weight Status Approriate GI Symptoms Food Allergies No Cultural/Ethnic/[employer] Belief SNF order: Glucerna 1.5 at 60ml/hr x 20hrs, providing 1800kcal. Water flush 50ml/hr x 20hrs, providing 1000ml. Skin Integrity/Comment: Saul 14. Right hip pressure area. Estimated Nutritional Goals BEE in Kcals: Using Current wt Calories/Kcals/Kg CBW 58.3kg Kcals Calculated 1749-2041kcal (30-35kcal/kg) Protein: Using Current wt Protein Calculated 76-93g (1.3-1.6g/kg) Fluid: ml 1749-2041ml (1ml/kcal) Nutritional Problem 1. Problem Problem Inadequate intake from enteral /parenteral nutrition infusion related to Etiology estimated nutritional needs, hypermetabolic state aeb Signs/Symptoms: only providing to meet 82% of lower end of estimated nutritional needs. Intervention/Recommendation Comments 1. Recommend Diabetisource 65ml/hr x 24hrs, providing 1872kcal, 94g protein, 1276ml free water. Pt was receiving 1800kcal at [facility], current diet order only providing 1440kcal. 2. Recommend 120ml water flush q6hrs when IV discontinued. Expected Outcomes/Goals Expected Outcomes/Goals 1. Pt to meet 100% of estimated nutritional needs on tube feeding with tolerance.
--- NOTE | 2016-08-27 13:44 | General Progress Note ---
Subjective - Review of Systems Service Date: 08/27/16 Subjective: awake, nonverbal, comfortable Objective - Results Result Diagrams: 08/27/16 05:43 08/27/16 05:43 Recent Labs: Laboratory Last Values WBC 14.4 Th/cmm (4.8-10.8) H 08/27/16 05:43 RBC 3.20 Mil/cmm (3.80-5.80) L 08/27/16 05:43 Hgb 8.9 gm/dL (12.6-17.4) L 08/27/16 05:43 Hct 26.7 % (39.0-49.0) L 08/27/16 05:43 MCV 83.3 fl (80-99) 08/27/16 05:43 MCH 27.9 pg (27.0-31.0) 08/27/16 05:43 MCHC Differential 33.4 pg (28.0-36.0) 08/27/16 05:43 RDW 18.2 % (11.5-20.0) 08/27/16 05:43 Plt Count 255 Th/cmm (150-400) D 08/27/16 05:43 MPV 8.2 fl 08/27/16 05:43 Neutrophils % 87.0 % (40.0-80.0) H 08/22/16 13:50 Band Neutrophils % 7 % (0-10) 08/27/16 05:43 Lymphocytes % 6.1 % (20.0-50.0) L 08/22/16 13:50 Monocytes % 5.5 % (2.0-10.0) 08/22/16 13:50 Eosinophils % 1.0 % (0.0-5.0) 08/22/16 13:50 Basophils % 0.4 % (0.0-2.0) 08/22/16 13:50 Neutrophils (Manual) 81 % (40-80) H 08/27/16 05:43 Lymphocytes 7 % (20-50) L 08/27/16 05:43 Monocytes 4 % (2-10) 08/27/16 05:43 Eosinophils 1 % (0-5) 08/27/16 05:43 Basophils 0 % (0-3) 08/27/16 05:43 Nucleated RBCs 1.0 % (0-0) H 08/26/16 06:33 Platelet Estimate ADEQUATE (NORMAL) 08/27/16 05:43 Platelet Morphology PLATELET CLUMPS SEEN (NORMAL) 08/27/16 05:43 Anisocytosis 1+ 08/26/16 06:33 RBC Morph Micro Appear NORMAL (NORMAL) 08/27/16 05:43 ESR > 140 mm/hr (0-20) H 08/22/16 13:00 Eos Smear Source URINE 08/25/16 02:50 Eos Smear Total Cells NONE SEEN (NONE SEEN) 08/25/16 02:50 PT 10.5 SECONDS (9.5-11.5) 08/22/16 13:50 INR 1.01 (0.5-1.4) 08/22/16 13:50 PTT (Actin FS) 25.9 SECONDS (26.0-38.0) L 08/22/16 13:50 Sodium 141 mEq/L (136-145) 08/27/16 05:43 Potassium 4.1 mEq/L (3.5-5.1) 08/27/16 05:43 Chloride 114 mEq/L (98-107) H 08/27/16 05:43 Carbon Dioxide 25.3 mEq/L (21.0-31.0) 08/27/16 05:43 Anion Gap 5.8 (7.0-16.0) L 08/27/16 05:43 BUN 40 mg/dL (7-25) H 08/27/16 05:43 Creatinine 1.1 mg/dL (0.7-1.3) 08/27/16 05:43 Est GFR ( Amer) TNP 08/27/16 05:43 Est GFR (Non-Af Amer) TNP 08/27/16 05:43 BUN/Creatinine Ratio 36.4 08/27/16 05:43 Glucose 131 mg/dL (70-105) H 08/27/16 05:43 POC Glucose 150 MG/DL (70 - 105) H 08/27/16 09:15 Whole Bld Lactic Acid 5.27 mmol/L (0.60-1.99) H* 08/22/16 15:55 Uric Acid 8.1 mg/dL (4.4-7.6) H 08/25/16 05:46 Calcium 9.2 mg/dL (8.6-10.3) 08/27/16 05:43 Phosphorus 2.3 mg/dL (2.5-5.0) L 08/25/16 05:46 Magnesium 2.0 mg/dL (1.9-2.7) 08/25/16 05:46 Total Bilirubin 0.4 mg/dL (0.3-1.0) 08/25/16 05:46 AST 32 U/L (13-39) 08/25/16 05:46 ALT 17 U/L (7-52) 08/25/16 05:46 Alkaline Phosphatase 88 U/L (34-104) 08/25/16 05:46 Creatine Kinase 191 U/L (30-223) 08/22/16 13:50 C-Reactive Protein 26.0 mg/dL (0.0-0.9) H 08/22/16 13:00 Total Protein 8.2 gm/dL (6.0-8.3) 08/25/16 05:46 Albumin 2.4 gm/dL (4.2-5.5) L 08/25/16 05:46 Globulin 5.8 gm/dL 08/25/16 05:46 Albumin/Globulin Ratio 0.4 (1.0-1.8) L 08/25/16 05:46 Urine Source CATH 08/22/16 14:50 Urine Color YELLOW 08/22/16 14:50 Urine Clarity CLOUDY (CLEAR) 08/22/16 14:50 Urine pH 8.5 08/22/16 14:50 Ur Specific [place] 1.015 (1.005-1.030) 08/22/16 14:50 Urine Protein 100 mg/dL (NEGATIVE) H 08/22/16 14:50 Urine Glucose (UA) NEGATIVE mg/dL (NEGATIVE) 08/22/16 14:50 Urine Ketones NEGATIVE mg/dL (NEGATIVE) 08/22/16 14:50 Urine Blood LARGE (NEGATIVE) H 08/22/16 14:50 Urine Nitrate NEGATIVE (NEGATIVE) 08/22/16 14:50 Urine Bilirubin NEGATIVE (NEGATIVE) 08/22/16 14:50 Urine Urobilinogen 1.0 E.U./dL (0.2 - 1.0) 08/22/16 14:50 Ur Leukocyte Esterase LARGE (NEGATIVE) H 08/22/16 14:50 Urine RBC 50-100 /hpf (0-5) H 08/22/16 14:50 Urine WBC 10-25 /hpf (0-5) H 08/22/16 14:50 Ur Epithelial Cells NONE SEEN /lpf (FEW) 08/22/16 14:50 Urine Bacteria FEW /hpf (NONE SEEN) 08/22/16 14:50 Ur Random Sodium 65 mmol/L 08/25/16 02:50 Urine Creatinine 33.7 mg/dl (Not Estab.) 08/25/16 02:50 Urine Microalbumin 56.2 ug/mL (Not Estab.) 08/25/16 02:50 Microalb/Creat Ratio 166.8 mg/g creat (0.0-30.0) H 08/25/16 02:50 Blood Type O POSITIVE 08/22/16 13:50 Antibody Screen NEGATIVE 08/22/16 13:50 Crossmatch See Detail 08/22/16 13:50 - Physical Exam Vitals and I&O: Vital Signs Temp 99.0 F 08/27/16 04:00 Pulse 101 08/27/16 04:00 Resp 20 08/27/16 04:00 BP 109/68 08/27/16 04:00 Pulse Ox 98 08/27/16 04:00 Intake & Output 08/26/16 08/27/16 08/27/16 18:59 06:59 18:59 Intake Total 2280 1999 Balance 2280 1999 Intake: Intake, IV Amount 1100 1100 Dextrose 5% 1,000 ml @ 75 1000 1000 mls/hr IV .[id number] [facility] Rx#:[id number] Meropenem 1 gm In Sodium 100 100 Chloride 0.9% 100 ml @ 100 mls/hr IV Q12HR [facility] Rx#:[id number] Tube Feeding 780 780 Other 400 120 Other: # Voids 3 2 # Bowel Movements 0 1 Stool Characteristics Soft Formed Active Medications: Current Medications Acetaminophen (Tylenol) 650 mg GT Q6H PRN PRN Reason: Fever > 101 Stop: 10/26/16 13:33 Docusate Sodium (Colace) 100 mg PO HS [facility] Stop: 10/21/16 20:59 Last Admin: 08/26/16 21:31 Dose: 100 mg Ferrous Sulfate (Iron) 325 mg PO TID [facility] Stop: 10/21/16 20:59 Last Admin: 08/27/16 13:35 Dose: 325 mg Dextrose (D5w) 1,000 mls @ 75 mls/hr IV .[id number] [facility] Stop: 10/23/16 14:44 Last Admin: 08/27/16 08:08 Dose: 75 mls/hr Meropenem 1 gm/ Sodium (Chloride) 100 mls @ 100 mls/hr IV Q12HR [facility] Stop: 10/25/16 08:59 Last Admin: 08/27/16 09:16 Dose: 100 mls/hr Insulin Aspart (Novolog Insulin Sliding Scale) 2 - 12 units SUBQ BID [facility] PRN Reason: Protocol Stop: 10/21/16 17:29 Last Admin: 08/27/16 09:17 Dose: Not Given Metformin HCl (Glucophage) 500 mg PO BID [facility] Stop: 10/22/16 09:59 Last Admin: 08/27/16 09:16 Dose: 500 mg General: Alert, No acute distress HEENT: Atraumatic, Mucous membr. moist/pink Neck: Supple, +2 carotid pulse wo bruit Cardiovascular: Regular rate, Normal S1, Normal S2 Lungs: Clear to auscultation Abdomen: Bowel sounds, Soft Extremities: no Edema Neurological: Sensation intact Skin: no Rash Psych/Mental Status: Mood NL Assessment/Plan - Problem List Patient Problems: All Active Problems Anemia (Acute) D64.9 Dehydration syndrome (Acute) E86.0 Dehydration with hypernatremia (Acute) E87.0 ELEVATED WHITE BLOOD CELL COUNT (Acute) Prerenal azotemia (Acute) R79.89 SIRS (systemic inflammatory response syndrome) (Acute) R65.10 anemia (Acute) persistant leukocytosis (Acute) rosepsis (Acute) sirs (Acute) uti (Acute) - Assessment Assessment: ALLISON Type 2 DM dehydration Ess HTN Alzh Dementia Severe Malnutrition Anemia acute on chronic P. mirabilis UTI Hypernatremia - Plan Plan: Lab - Result Diagrams 08/25/16 05:46 08/25/16 05:46 Current Medications Docusate Sodium (Colace) 100 mg PO HS [facility] Stop: 10/21/16 20:59 Last Admin: 08/24/16 22:35 Dose: 100 mg Ferrous Sulfate (Iron) 325 mg PO TID [facility] Stop: 10/21/16 20:59 Last Admin: 08/25/16 10:34 Dose: 325 mg Ceftriaxone Sodium 1 gm/ (Sodium Chloride) 50 mls @ 100 mls/hr IV Q24HR [facility] Stop: 10/22/16 08:59 Last Admin: 08/25/16 10:35 Dose: 100 mls/hr Dextrose (D5w) 1,000 mls @ 75 mls/hr IV .[id number] [facility] Stop: 10/23/16 14:44 Last Admin: 08/25/16 05:57 Dose: 75 mls/hr Insulin Aspart (Novolog Insulin Sliding Scale) 2 - 12 units SUBQ BID [facility] PRN Reason: Protocol Stop: 10/21/16 17:29 Last Admin: 08/25/16 11:00 Dose: 2 units Metformin HCl (Glucophage) 500 mg PO BID [facility] Stop: 10/22/16 09:59 Last Admin: 08/25/16 10:00 Dose: 500 mg kideny fnc the same w/ BUN/CR of 40/1.1 Na down to 141 continue ivf & gt feeding f/u electrolytes, cbc on IVF D5W @ 75ml/hr Nutritional Asmnt/Malnutr-PDOC - Dietary Evaluation Malnutrition Findings (Please click <Entered> for more info): Nutritional Asmnt/Malnutrition Start: 08/23/16 09: 33 Text: Status: Complete Freq: Document 08/23/16 09:34 GSROB (Rec: 08/23/16 09:58 TRACEY [id number]) Nutritional Asmnt/Malnutrition Patient General Information Nutritional Screening High Risk Screening Diagnosis ER: Sepsis due to UTI, DM2, HTN Pertinent Medical Hx/Surgical Hx ER: Dementia, DM, HTN Subjective Information 81 year old male from SNF, per ER notes, admitted due to acute severe, abnormal labs. Pt with eyes closed, moving hands around, appeared to be mumbling to self, did not respond to RD. Pt apepared thin overall, mild wasting to temporals. Spoke to RN, pt tolerating tube feeding well, no diarrhea noted. Current Diet Order/ Nutrition Support Diabetisource 60ml/hr x 20hrs, providing 1440kcal. Water flush 200ml qshift Pertinent Medications D5, Colace, Iron, Novolog, Glucophage Pertinent Labs 08/22: BUN 72H, creatinine 1.6H, 161H Nutritional Hx/Data Height 1.7 m Height (Calculated Centimeters) 170.2 Current Weight (lbs) 58.332 kg Weight (Calculated Kilograms) 58.3 Weight (Calculated Grams) 30553.0 [place] Body Weight 148lb Weight Status Approriate GI Symptoms Food Allergies No Cultural/Ethnic/[employer] Belief [facility] order: Glucerna 1.5 at 60ml/hr x 20hrs, providing 1800kcal. Water flush 50ml/hr x 20hrs, providing 1000ml. Skin Integrity/Comment: Saul 14. Right hip pressure area. Estimated Nutritional Goals BEE in Kcals: Using Current wt Calories/Kcals/Kg CBW 58.3kg Kcals Calculated 1749-2041kcal (30-35kcal/kg) Protein: Using Current wt Protein Calculated 76-93g (1.3-1.6g/kg) Fluid: ml 1749-2041ml (1ml/kcal) Nutritional Problem 1. Problem Problem Inadequate intake from enteral /parenteral nutrition infusion related to Etiology estimated nutritional needs, hypermetabolic state aeb Signs/Symptoms: only providing to meet 82% of lower end of estimated nutritional needs. Intervention/Recommendation Comments 1. Recommend Diabetisource 65ml/hr x 24hrs, providing 1872kcal, 94g protein, 1276ml free water. Pt was receiving 1800kcal at [facility], current diet order only providing 1440kcal. 2. Recommend 120ml water flush q6hrs when IV discontinued. Expected Outcomes/Goals Expected Outcomes/Goals 1. Pt to meet 100% of estimated nutritional needs on tube feeding with tolerance.
--- NOTE | 2016-08-27 13:56 | Progress Notes ---
SUBJECTIVE: The patient was seen in his room, lying in the bed. The patient is a poor historian due to medical condition. The patient has history of dementia. OBJECTIVE: HEENT: Head is atraumatic and normocephalic. Eyes: Bilateral conjunctivae are clear from injection. NECK: Supple. No JVD. CARDIOVASCULAR: S1 and S2 heard without murmur. PULMONARY: Decreased breath sounds, aspiration risk. GASTROINTESTINAL: Soft and nontender without guarding. The patient is currently getting tube feeding via gastrostomy tube. MUSCULOSKELETAL: No edema and no clubbing noted. ASSESSMENT: 1. Urinary tract infection. 2. Diabetes mellitus. 3. Hypertension. 4. Dementia. 5. Anemia. 6. Dysphagia. PLAN: We will keep the patient inpatient in the med/surg floor. We will follow up with the renal doctor to monitor the patient's renal status. We will continue IV antibiotics for UTI management. [facility]# [id number]
--- NOTE | 2016-08-27 15:05 | Infectious Disease Prog Note ---
Infectious Disease Subjective - Review of Systems Service Date: 08/27/16 Subjective: there is no new change. high ormal temperature up to 100.1 degree F. Infectious Disease Objective - Results Result Diagrams: 08/27/16 05:43 08/27/16 05:43 Recent Labs: Laboratory Last Values WBC 14.4 Th/cmm (4.8-10.8) H 08/27/16 05:43 RBC 3.20 Mil/cmm (3.80-5.80) L 08/27/16 05:43 Hgb 8.9 gm/dL (12.6-17.4) L 08/27/16 05:43 Hct 26.7 % (39.0-49.0) L 08/27/16 05:43 MCV 83.3 fl (80-99) 08/27/16 05:43 MCH 27.9 pg (27.0-31.0) 08/27/16 05:43 MCHC Differential 33.4 pg (28.0-36.0) 08/27/16 05:43 RDW 18.2 % (11.5-20.0) 08/27/16 05:43 Plt Count 255 Th/cmm (150-400) D 08/27/16 05:43 MPV 8.2 fl 08/27/16 05:43 Neutrophils % 87.0 % (40.0-80.0) H 08/22/16 13:50 Band Neutrophils % 7 % (0-10) 08/27/16 05:43 Lymphocytes % 6.1 % (20.0-50.0) L 08/22/16 13:50 Monocytes % 5.5 % (2.0-10.0) 08/22/16 13:50 Eosinophils % 1.0 % (0.0-5.0) 08/22/16 13:50 Basophils % 0.4 % (0.0-2.0) 08/22/16 13:50 Neutrophils (Manual) 81 % (40-80) H 08/27/16 05:43 Lymphocytes 7 % (20-50) L 08/27/16 05:43 Monocytes 4 % (2-10) 08/27/16 05:43 Eosinophils 1 % (0-5) 08/27/16 05:43 Basophils 0 % (0-3) 08/27/16 05:43 Nucleated RBCs 1.0 % (0-0) H 08/26/16 06:33 Platelet Estimate ADEQUATE (NORMAL) 08/27/16 05:43 Platelet Morphology PLATELET CLUMPS SEEN (NORMAL) 08/27/16 05:43 Anisocytosis 1+ 08/26/16 06:33 RBC Morph Micro Appear NORMAL (NORMAL) 08/27/16 05:43 ESR > 140 mm/hr (0-20) H 08/22/16 13:00 Eos Smear Source URINE 08/25/16 02:50 Eos Smear Total Cells NONE SEEN (NONE SEEN) 08/25/16 02:50 PT 10.5 SECONDS (9.5-11.5) 08/22/16 13:50 INR 1.01 (0.5-1.4) 08/22/16 13:50 PTT (Actin FS) 25.9 SECONDS (26.0-38.0) L 08/22/16 13:50 Sodium 141 mEq/L (136-145) 08/27/16 05:43 Potassium 4.1 mEq/L (3.5-5.1) 08/27/16 05:43 Chloride 114 mEq/L (98-107) H 08/27/16 05:43 Carbon Dioxide 25.3 mEq/L (21.0-31.0) 08/27/16 05:43 Anion Gap 5.8 (7.0-16.0) L 08/27/16 05:43 BUN 40 mg/dL (7-25) H 08/27/16 05:43 Creatinine 1.1 mg/dL (0.7-1.3) 08/27/16 05:43 Est GFR ( Amer) TNP 08/27/16 05:43 Est GFR (Non-Af Amer) TNP 08/27/16 05:43 BUN/Creatinine Ratio 36.4 08/27/16 05:43 Glucose 131 mg/dL (70-105) H 08/27/16 05:43 POC Glucose 150 MG/DL (70 - 105) H 08/27/16 09:15 Whole Bld Lactic Acid 5.27 mmol/L (0.60-1.99) H* 08/22/16 15:55 Uric Acid 8.1 mg/dL (4.4-7.6) H 08/25/16 05:46 Calcium 9.2 mg/dL (8.6-10.3) 08/27/16 05:43 Phosphorus 2.3 mg/dL (2.5-5.0) L 08/25/16 05:46 Magnesium 2.0 mg/dL (1.9-2.7) 08/25/16 05:46 Total Bilirubin 0.4 mg/dL (0.3-1.0) 08/25/16 05:46 AST 32 U/L (13-39) 08/25/16 05:46 ALT 17 U/L (7-52) 08/25/16 05:46 Alkaline Phosphatase 88 U/L (34-104) 08/25/16 05:46 Creatine Kinase 191 U/L (30-223) 08/22/16 13:50 C-Reactive Protein 26.0 mg/dL (0.0-0.9) H 08/22/16 13:00 Total Protein 8.2 gm/dL (6.0-8.3) 08/25/16 05:46 Albumin 2.4 gm/dL (4.2-5.5) L 08/25/16 05:46 Globulin 5.8 gm/dL 08/25/16 05:46 Albumin/Globulin Ratio 0.4 (1.0-1.8) L 08/25/16 05:46 Urine Source CATH 08/22/16 14:50 Urine Color YELLOW 08/22/16 14:50 Urine Clarity CLOUDY (CLEAR) 08/22/16 14:50 Urine pH 8.5 08/22/16 14:50 Ur Specific [place] 1.015 (1.005-1.030) 08/22/16 14:50 Urine Protein 100 mg/dL (NEGATIVE) H 08/22/16 14:50 Urine Glucose (UA) NEGATIVE mg/dL (NEGATIVE) 08/22/16 14:50 Urine Ketones NEGATIVE mg/dL (NEGATIVE) 08/22/16 14:50 Urine Blood LARGE (NEGATIVE) H 08/22/16 14:50 Urine Nitrate NEGATIVE (NEGATIVE) 08/22/16 14:50 Urine Bilirubin NEGATIVE (NEGATIVE) 08/22/16 14:50 Urine Urobilinogen 1.0 E.U./dL (0.2 - 1.0) 08/22/16 14:50 Ur Leukocyte Esterase LARGE (NEGATIVE) H 08/22/16 14:50 Urine RBC 50-100 /hpf (0-5) H 08/22/16 14:50 Urine WBC 10-25 /hpf (0-5) H 08/22/16 14:50 Ur Epithelial Cells NONE SEEN /lpf (FEW) 08/22/16 14:50 Urine Bacteria FEW /hpf (NONE SEEN) 08/22/16 14:50 Ur Random Sodium 65 mmol/L 08/25/16 02:50 Urine Creatinine 33.7 mg/dl (Not Estab.) 08/25/16 02:50 Urine Microalbumin 56.2 ug/mL (Not Estab.) 08/25/16 02:50 Microalb/Creat Ratio 166.8 mg/g creat (0.0-30.0) H 08/25/16 02:50 Blood Type O POSITIVE 08/22/16 13:50 Antibody Screen NEGATIVE 08/22/16 13:50 Crossmatch See Detail 08/22/16 13:50 - Physical Exam Vitals and I&O: Vital Signs Temp 99.0 F 08/27/16 04:00 Pulse 101 08/27/16 04:00 Resp 20 08/27/16 04:00 BP 109/68 08/27/16 04:00 Pulse Ox 98 08/27/16 04:00 Intake & Output 08/26/16 08/27/16 08/27/16 18:59 06:59 18:59 Intake Total 2280 1999 Balance 2280 1999 Intake: Intake, IV Amount 1100 1100 Dextrose 5% 1,000 ml @ 75 1000 1000 mls/hr IV .[id number] [facility] Rx#:[id number] Meropenem 1 gm In Sodium 100 100 Chloride 0.9% 100 ml @ 100 mls/hr IV Q12HR [facility] Rx#:[id number] Tube Feeding 780 780 Other 400 120 Other: # Voids 3 2 # Bowel Movements 0 1 Stool Characteristics Soft Formed Active Medications: Current Medications Acetaminophen (Tylenol 650mg/20.3ml Suspension) 650 mg PO Q4H PRN PRN Reason: Fever > 101 Stop: 10/26/16 13:43 Last Admin: 08/27/16 14:28 Dose: 650 mg Docusate Sodium (Colace) 100 mg PO HS [facility] Stop: 10/21/16 20:59 Last Admin: 08/26/16 21:31 Dose: 100 mg Ferrous Sulfate (Iron) 325 mg PO TID [facility] Stop: 10/21/16 20:59 Last Admin: 08/27/16 13:35 Dose: 325 mg Dextrose (D5w) 1,000 mls @ 75 mls/hr IV .[id number] [facility] Stop: 10/23/16 14:44 Last Admin: 08/27/16 08:08 Dose: 75 mls/hr Meropenem 1 gm/ Sodium (Chloride) 100 mls @ 100 mls/hr IV Q12HR [facility] Stop: 10/25/16 08:59 Last Admin: 08/27/16 09:16 Dose: 100 mls/hr Insulin Aspart (Novolog Insulin Sliding Scale) 2 - 12 units SUBQ BID [facility] PRN Reason: Protocol Stop: 10/21/16 17:29 Last Admin: 08/27/16 09:17 Dose: Not Given Metformin HCl (Glucophage) 500 mg PO BID [facility] Stop: 10/22/16 09:59 Last Admin: 08/27/16 09:16 Dose: 500 mg General: no acute distress, well developed, well nourished HEENT: atraumatic, normocephalic, PERRLA, EOMI Neck: supple Cardiovascular: S1S2, regular Lungs: clear to auscultation bilaterally, clear to percussion Abdomen: soft, no tender, no distended Extremities: no cyanosis, no clubbing, no edema Neurological: awake, alert Infectious Disease Assmt/Plan - Problem List Patient Problems: All Active Problems Anemia (Acute) D64.9 Dehydration syndrome (Acute) E86.0 Dehydration with hypernatremia (Acute) E87.0 ELEVATED WHITE BLOOD CELL COUNT (Acute) Prerenal azotemia (Acute) R79.89 SIRS (systemic inflammatory response syndrome) (Acute) R65.10 anemia (Acute) persistant leukocytosis (Acute) rosepsis (Acute) sirs (Acute) uti (Acute) - Assessment Assessment: Impression: 1. UTI. 2. Leukocytosis improving. 3. Dementia. Recommendations: Contineu meropenem and if he does well by tomorrow, may change antibiotics to levaquin po for [address] scan a/p for persistent leukocytosis. Hematology consult. Nutritional Asmnt/Malnutr-PDOC - Dietary Evaluation Malnutrition Findings (Please click <Entered> for more info): Nutritional Asmnt/Malnutrition Start: 08/23/16 09: 33 Text: Status: Complete Freq: Document 08/23/16 09:34 TRACEY (Rec: 08/23/16 09:58 [email or web address] [email or web address]) Nutritional Asmnt/Malnutrition Patient General Information Nutritional Screening High Risk Screening Diagnosis ER: Sepsis due to UTI, DM2, HTN Pertinent Medical Hx/Surgical Hx ER: Dementia, DM, HTN Subjective Information 81 year old male from SNF, per ER notes, admitted due to acute severe, abnormal labs. Pt with eyes closed, moving hands around, appeared to be mumbling to self, did not respond to RD. Pt apepared thin overall, mild wasting to temporals. Spoke to RN, pt tolerating tube feeding well, no diarrhea noted. Current Diet Order/ Nutrition Support Diabetisource 60ml/hr x 20hrs, providing 1440kcal. Water flush 200ml qshift Pertinent Medications D5, Colace, Iron, Novolog, Glucophage Pertinent Labs 08/22: BUN 72H, creatinine 1.6H, 161H Nutritional Hx/Data Height 1.7 m Height (Calculated Centimeters) 170.2 Current Weight (lbs) 58.332 kg Weight (Calculated Kilograms) 58.3 Weight (Calculated Grams) 81909.0 [place] Body Weight 148lb Weight Status Approriate GI Symptoms Food Allergies No Cultural/Ethnic/Rastafari Belief [facility] order: Glucerna 1.5 at 60ml/hr x 20hrs, providing 1800kcal. Water flush 50ml/hr x 20hrs, providing 1000ml. Skin Integrity/Comment: Saul 14. Right hip pressure area. Estimated Nutritional Goals BEE in Kcals: Using Current wt Calories/Kcals/Kg CBW 58.3kg Kcals Calculated 1749-2041kcal (30-35kcal/kg) Protein: Using Current wt Protein Calculated 76-93g (1.3-1.6g/kg) Fluid: ml 1749-2041ml (1ml/kcal) Nutritional Problem 1. Problem Problem Inadequate intake from enteral /parenteral nutrition infusion related to Etiology estimated nutritional needs, hypermetabolic state aeb Signs/Symptoms: only providing to meet 82% of lower end of estimated nutritional needs. Intervention/Recommendation Comments 1. Recommend Diabetisource 65ml/hr x 24hrs, providing 1872kcal, 94g protein, 1276ml free water. Pt was receiving 1800kcal at [facility], current diet order only providing 1440kcal. 2. Recommend 120ml water flush q6hrs when IV discontinued. Expected Outcomes/Goals Expected Outcomes/Goals 1. Pt to meet 100% of estimated nutritional needs on tube feeding with tolerance.
[2016-08-28 06:29] LABS: HEMATOCRIT 27.6 % (39.0-49.0); HEMOGLOBIN 9.1 gm/dL (12.6-17.4); MEAN CELL VOLUME 83.2 fl (80-99); MEAN CORPUSCULAR HEMOGLOBIN 27.4 pg (27.0-31.0); MEAN CORPUSCULAR HGB CONC 32.9 pg (28.0-36.0); MEAN PLATELET VOLUME 8.2 fl; RED BLOOD COUNT 3.31 Mil/cmm (3.80-5.80)
[2016-08-28 06:37] LABS: WHITE BLOOD COUNT 21.6 Th/cmm (4.8-10.8)
[2016-08-28 06:38] LABS: ANION GAP 8.8 (7.0-16.0); BUN - UREA NITROGEN 37 mg/dL (7-25); BUN/CREATININE RATIO 33.6; CALCIUM SERUM 8.9 mg/dL (8.6-10.3); CARBON DIOXIDE 24.5 mEq/L (21.0-31.0); CHLORIDE 109 mEq/L (98-107); CREATININE - SERUM 1.1 mg/dL (0.7-1.3); GLUCOSE 116 mg/dL (70-105); POTASSIUM SERUM 4.3 mEq/L (3.5-5.1); SODIUM SERUM 138 mEq/L (136-145)
[2016-08-28 08:03] LABS: BAND NEUTROPHILE 4 % (0-10); NEUTROPHILS 76 % (40-80); TOTAL CELLS COUNTED 100
[2016-08-28 08:04] LABS: PLATELET ESTIMATE ADEQUATE (NORMAL)
[2016-08-28 08:06] LABS: PLATELET COUNT 212 Th/cmm (150-400)
[2016-08-28] MEDS: Ferrous Sulfate 325 MG TAB PO SCH ×3 (09:31→21:35)
[2016-08-28] MEDS: INSULIN ASPART SLIDING SCALE 100 UNITS/ML UNIT SUBQ SCH ×2 (09:42→17:11)
--- NOTE | 2016-08-28 10:31 | Diagnostic Imaging Report ---
Renal ultrasound HISTORY: Abnormal renal function test Exam is limited and suboptimal due to patient combativeness. The right kidney is normal in size (9.7 x 4.9 x 4.7 cm). There appears to be too sonolucent foci consistent with cysts noted in the right kidney that measured 2.6 and 3.0 cm. The left kidney is normal in size (9.8 x 5.2 x 3.3 cm). No definite focal lesions. No hydronephrosis. The exam of the gallbladder demonstrates a level of intraluminal debris. Findings should be correlated clinically. IMPRESSION: 1. Very Limited/suboptimal exam due to patient combativeness 2. Findings suggesting right renal cysts 3. Intraluminal density that layers within the dependent region of the urinary bladder. Etiology uncertain. Findings may be associated with hematoma. Clinical correlation is needed.
[2016-08-28] MEDS: Meropenem 1 GM in Sodium Chloride 0.9% 100 ML IV SCH ×2 (10:36→21:34)
--- NOTE | 2016-08-28 12:07 | Diagnostic Imaging Report ---
CT scan abdomen and pelvis without intravenous contrast HISTORY: Pain Total DLP equals 393 CTDI equals 7.0 Axial sections were obtained from the xiphoid process down to the pubic symphysis. The liver exhibits a homogeneous parenchyma. No focal lesions. The spleen appears normal. No focal amenities seen in the region of the pancreas. There is an approximate 3.0 cm cyst extending off the lateral cortex of the right kidney. An additional 2.2 cm cyst is seen in the posterior cortex. There is an approximate 7 mm calculus within the right renal pelvis. Mild fullness of the renal pelvis. No francisco javier hydronephrosis. The left kidney appears normal. An intravascular stent traverses the distal abdominal aorta and iliac arteries. Atherosclerotic vascular calcification is noted. Gastrostomy tube is seen. No abnormal masses or abnormal fluid collections seen within the pelvis. There is increased soft tissue density noted within the musculature adjacent to the right hip. Obscuration of adjacent fat planes. Small air density noted. Inflammatory change and abscess formation cannot be excluded. Clinical correlation is needed. Degenerative changes noted to the spine. IMPRESSION: 1. Abnormal density within the soft tissues adjacent to the right hip with obscuration of normal fat planes. Small air collections are seen. Inflammatory change cannot be excluded. Clinical correlation is needed. 2. Nonobstructing right renal calculus 3. Right renal cysts 4. Intravascular stents traversing the distal abdominal aorta and iliac vessels.
[2016-08-28] MEDS: Dextrose 5% 1,000 ML IV SCH (12:42)
--- NOTE | 2016-08-28 13:09 | General Progress Note ---
Subjective - Review of Systems Service Date: 08/28/16 Subjective: awake, nonverbal, comfortable Objective - Results Result Diagrams: 08/28/16 05:10 08/28/16 05:10 Recent Labs: Laboratory Last Values WBC 21.6 Th/cmm (4.8-10.8) H* D 08/28/16 05:10 RBC 3.31 Mil/cmm (3.80-5.80) L 08/28/16 05:10 Hgb 9.1 gm/dL (12.6-17.4) L 08/28/16 05:10 Hct 27.6 % (39.0-49.0) L 08/28/16 05:10 MCV 83.2 fl (80-99) 08/28/16 05:10 MCH 27.4 pg (27.0-31.0) 08/28/16 05:10 MCHC Differential 32.9 pg (28.0-36.0) 08/28/16 05:10 RDW 18.0 % (11.5-20.0) 08/28/16 05:10 Plt Count 212 Th/cmm (150-400) 08/28/16 05:10 MPV 8.2 fl 08/28/16 05:10 Neutrophils % 87.0 % (40.0-80.0) H 08/22/16 13:50 Band Neutrophils % 4 % (0-10) 08/28/16 05:10 Lymphocytes % 6.1 % (20.0-50.0) L 08/22/16 13:50 Monocytes % 5.5 % (2.0-10.0) 08/22/16 13:50 Eosinophils % 1.0 % (0.0-5.0) 08/22/16 13:50 Basophils % 0.4 % (0.0-2.0) 08/22/16 13:50 Neutrophils (Manual) 76 % (40-80) 08/28/16 05:10 Lymphocytes 10 % (20-50) L 08/28/16 05:10 Monocytes 10 % (2-10) 08/28/16 05:10 Eosinophils 1 % (0-5) 08/27/16 05:43 Basophils 0 % (0-3) 08/27/16 05:43 Nucleated RBCs 1.0 % (0-0) H 08/26/16 06:33 Platelet Estimate ADEQUATE (NORMAL) 08/28/16 05:10 Platelet Morphology (NORMAL) 08/28/16 05:10 Anisocytosis 1+ 08/26/16 06:33 RBC Morph Micro Appear NORMAL (NORMAL) 08/27/16 05:43 ESR > 140 mm/hr (0-20) H 08/22/16 13:00 Eos Smear Source URINE 08/25/16 02:50 Eos Smear Total Cells NONE SEEN (NONE SEEN) 08/25/16 02:50 PT 10.5 SECONDS (9.5-11.5) 08/22/16 13:50 INR 1.01 (0.5-1.4) 08/22/16 13:50 PTT (Actin FS) 25.9 SECONDS (26.0-38.0) L 08/22/16 13:50 Sodium 138 mEq/L (136-145) 08/28/16 05:10 Potassium 4.3 mEq/L (3.5-5.1) 08/28/16 05:10 Chloride 109 mEq/L (98-107) H 08/28/16 05:10 Carbon Dioxide 24.5 mEq/L (21.0-31.0) 08/28/16 05:10 Anion Gap 8.8 (7.0-16.0) 08/28/16 05:10 BUN 37 mg/dL (7-25) H 08/28/16 05:10 Creatinine 1.1 mg/dL (0.7-1.3) 08/28/16 05:10 Est GFR ( Amer) TNP 08/28/16 05:10 Est GFR (Non-Af Amer) TNP 08/28/16 05:10 BUN/Creatinine Ratio 33.6 08/28/16 05:10 Glucose 116 mg/dL (70-105) H 08/28/16 05:10 POC Glucose 144 MG/DL (70 - 105) H 08/27/16 17:46 Whole Bld Lactic Acid 5.27 mmol/L (0.60-1.99) H* 08/22/16 15:55 Uric Acid 8.1 mg/dL (4.4-7.6) H 08/25/16 05:46 Calcium 8.9 mg/dL (8.6-10.3) 08/28/16 05:10 Phosphorus 2.3 mg/dL (2.5-5.0) L 08/25/16 05:46 Magnesium 2.0 mg/dL (1.9-2.7) 08/25/16 05:46 Total Bilirubin 0.4 mg/dL (0.3-1.0) 08/25/16 05:46 AST 32 U/L (13-39) 08/25/16 05:46 ALT 17 U/L (7-52) 08/25/16 05:46 Alkaline Phosphatase 88 U/L (34-104) 08/25/16 05:46 Creatine Kinase 191 U/L (30-223) 08/22/16 13:50 C-Reactive Protein 26.0 mg/dL (0.0-0.9) H 08/22/16 13:00 Total Protein 8.2 gm/dL (6.0-8.3) 08/25/16 05:46 Albumin 2.4 gm/dL (4.2-5.5) L 08/25/16 05:46 Globulin 5.8 gm/dL 08/25/16 05:46 Albumin/Globulin Ratio 0.4 (1.0-1.8) L 08/25/16 05:46 Urine Source CATH 08/22/16 14:50 Urine Color YELLOW 08/22/16 14:50 Urine Clarity CLOUDY (CLEAR) 08/22/16 14:50 Urine pH 8.5 08/22/16 14:50 Ur Specific [place] 1.015 (1.005-1.030) 08/22/16 14:50 Urine Protein 100 mg/dL (NEGATIVE) H 08/22/16 14:50 Urine Glucose (UA) NEGATIVE mg/dL (NEGATIVE) 08/22/16 14:50 Urine Ketones NEGATIVE mg/dL (NEGATIVE) 08/22/16 14:50 Urine Blood LARGE (NEGATIVE) H 08/22/16 14:50 Urine Nitrate NEGATIVE (NEGATIVE) 08/22/16 14:50 Urine Bilirubin NEGATIVE (NEGATIVE) 08/22/16 14:50 Urine Urobilinogen 1.0 E.U./dL (0.2 - 1.0) 08/22/16 14:50 Ur Leukocyte Esterase LARGE (NEGATIVE) H 08/22/16 14:50 Urine RBC 50-100 /hpf (0-5) H 08/22/16 14:50 Urine WBC 10-25 /hpf (0-5) H 08/22/16 14:50 Ur Epithelial Cells NONE SEEN /lpf (FEW) 08/22/16 14:50 Urine Bacteria FEW /hpf (NONE SEEN) 08/22/16 14:50 Urine Osmolality 436 mOsmol/kg 08/25/16 02:50 Ur Random Sodium 65 mmol/L 08/25/16 02:50 Urine Creatinine 33.7 mg/dl (Not Estab.) 08/25/16 02:50 Urine Microalbumin 56.2 ug/mL (Not Estab.) 08/25/16 02:50 Microalb/Creat Ratio 166.8 mg/g creat (0.0-30.0) H 08/25/16 02:50 Blood Type O POSITIVE 08/22/16 13:50 Antibody Screen NEGATIVE 08/22/16 13:50 Crossmatch See Detail 08/22/16 13:50 - Physical Exam Vitals and I&O: Vital Signs Temp 99.7 F 08/28/16 12:00 Pulse 115 08/28/16 12:00 Resp 18 08/28/16 12:00 BP 92/67 08/28/16 12:00 Pulse Ox 97 08/28/16 12:00 Intake & Output 08/27/16 08/28/16 08/28/16 18:59 06:59 18:59 Intake Total 1280 1490 1000 Balance 1280 1490 1000 Intake: Intake, IV Amount 100 1100 1000 Dextrose 5% 1,000 ml @ 75 1000 1000 mls/hr IV .[id number] [facility] Rx#:[id number] Meropenem 1 gm In Sodium 100 100 Chloride 0.9% 100 ml @ 100 mls/hr IV Q12HR [facility] Rx#:[id number] Oral 0 0 Tube Feeding 780 390 Other 400 Other: # Voids 3 3 # Bowel Movements 2 Stool Characteristics Soft Formed Active Medications: Current Medications Acetaminophen (Tylenol 650mg/20.3ml Suspension) 650 mg PO Q4H PRN PRN Reason: Fever > 101 Stop: 10/26/16 13:43 Last Admin: 08/28/16 10:35 Dose: 650 mg Docusate Sodium (Colace) 100 mg PO HS [facility] Stop: 10/21/16 20:59 Last Admin: 08/27/16 21:20 Dose: 100 mg Ferrous Sulfate (Iron) 325 mg PO TID [facility] Stop: 10/21/16 20:59 Last Admin: 08/28/16 09:31 Dose: 325 mg Dextrose (D5w) 1,000 mls @ 75 mls/hr IV .[id number] [facility] Stop: 10/23/16 14:44 Last Admin: 08/28/16 12:42 Dose: 75 mls/hr Meropenem 1 gm/ Sodium (Chloride) 100 mls @ 100 mls/hr IV Q12HR [facility] Stop: 10/25/16 08:59 Last Admin: 08/28/16 10:36 Dose: 100 mls/hr Insulin Aspart (Novolog Insulin Sliding Scale) 2 - 12 units SUBQ BID [facility] PRN Reason: Protocol Stop: 10/21/16 17:29 Last Admin: 08/28/16 09:42 Dose: Not Given Metformin HCl (Glucophage) 500 mg PO BID [facility] Stop: 10/22/16 09:59 Last Admin: 08/28/16 09:31 Dose: 500 mg General: Alert, No acute distress HEENT: Atraumatic, Mucous membr. moist/pink Neck: +2 carotid pulse wo bruit Cardiovascular: Regular rate, Normal S1, Normal S2 Lungs: Other (decrease BS) Abdomen: Bowel sounds, Soft Extremities: no Edema Neurological: Sensation intact Skin: no Rash Assessment/Plan - Problem List Patient Problems: All Active Problems Anemia (Acute) D64.9 Dehydration syndrome (Acute) E86.0 Dehydration with hypernatremia (Acute) E87.0 ELEVATED WHITE BLOOD CELL COUNT (Acute) Prerenal azotemia (Acute) R79.89 SIRS (systemic inflammatory response syndrome) (Acute) R65.10 anemia (Acute) persistant leukocytosis (Acute) rosepsis (Acute) sirs (Acute) uti (Acute) - Assessment Assessment: ALLISON Type 2 DM dehydration Ess HTN Alzh Dementia Severe Malnutrition Anemia acute on chronic P. mirabilis UTI Hypernatremia Leukocytosis etio? - Plan Plan: Lab - Result Diagrams 08/25/16 05:46 08/25/16 05:46 Current Medications Docusate Sodium (Colace) 100 mg PO HS [facility] Stop: 10/21/16 20:59 Last Admin: 08/24/16 22:35 Dose: 100 mg Ferrous Sulfate (Iron) 325 mg PO TID [facility] Stop: 10/21/16 20:59 Last Admin: 08/25/16 10:34 Dose: 325 mg Ceftriaxone Sodium 1 gm/ (Sodium Chloride) 50 mls @ 100 mls/hr IV Q24HR [facility] Stop: 10/22/16 08:59 Last Admin: 08/25/16 10:35 Dose: 100 mls/hr Dextrose (D5w) 1,000 mls @ 75 mls/hr IV .[id number] [facility] Stop: 10/23/16 14:44 Last Admin: 08/25/16 05:57 Dose: 75 mls/hr Insulin Aspart (Novolog Insulin Sliding Scale) 2 - 12 units SUBQ BID [facility] PRN Reason: Protocol Stop: 10/21/16 17:29 Last Admin: 08/25/16 11:00 Dose: 2 units Metformin HCl (Glucophage) 500 mg PO BID [facility] Stop: 10/22/16 09:59 Last Admin: 08/25/16 10:00 Dose: 500 mg kideny fnc better w/ BUN/CR of 37/1.1 Na down to 141 continue ivf & gt feeding f/u electrolytes, cbc on IVF D5W @ 75ml/hr WBC up to 21.6 CT Scan abd/pelvis revealed abnormal soft tissue density near right hip Nutritional Asmnt/Malnutr-PDOC - Dietary Evaluation Malnutrition Findings (Please click <Entered> for more info): Nutritional Asmnt/Malnutrition Start: 08/23/16 09: 33 Text: Status: Complete Freq: Document 08/23/16 09:34 GSUN (Rec: 08/23/16 09:58 GSROB [place] [id number]) Nutritional Asmnt/Malnutrition Patient General Information Nutritional Screening High Risk Screening Diagnosis ER: Sepsis due to UTI, DM2, HTN Pertinent Medical Hx/Surgical Hx ER: Dementia, DM, HTN Subjective Information 81 year old male from SNF, per ER notes, admitted due to acute severe, abnormal labs. Pt with eyes closed, moving hands around, appeared to be mumbling to self, did not respond to RD. Pt apepared thin overall, mild wasting to temporals. Spoke to RN, pt tolerating tube feeding well, no diarrhea noted. Current Diet Order/ Nutrition Support Diabetisource 60ml/hr x 20hrs, providing 1440kcal. Water flush 200ml qshift Pertinent Medications D5, Colace, Iron, Novolog, Glucophage Pertinent Labs 08/22: BUN 72H, creatinine 1.6H, 161H Nutritional Hx/Data Height 1.7 m Height (Calculated Centimeters) 170.2 Current Weight (lbs) 58.332 kg Weight (Calculated Kilograms) 58.3 Weight (Calculated Grams) 87459.0 [place] Body Weight 148lb Weight Status Approriate GI Symptoms Food Allergies No Cultural/Ethnic/Confucianism Belief SNF order: Glucerna 1.5 at 60ml/hr x 20hrs, providing 1800kcal. Water flush 50ml/hr x 20hrs, providing 1000ml. Skin Integrity/Comment: Saul 14. Right hip pressure area. Estimated Nutritional Goals BEE in Kcals: Using Current wt Calories/Kcals/Kg CBW 58.3kg Kcals Calculated 1749-2041kcal (30-35kcal/kg) Protein: Using Current wt Protein Calculated 76-93g (1.3-1.6g/kg) Fluid: ml 1749-2041ml (1ml/kcal) Nutritional Problem 1. Problem Problem Inadequate intake from enteral /parenteral nutrition infusion related to Etiology estimated nutritional needs, hypermetabolic state aeb Signs/Symptoms: only providing to meet 82% of lower end of estimated nutritional needs. Intervention/Recommendation Comments 1. Recommend Diabetisource 65ml/hr x 24hrs, providing 1872kcal, 94g protein, 1276ml free water. Pt was receiving 1800kcal at [facility], current diet order only providing 1440kcal. 2. Recommend 120ml water flush q6hrs when IV discontinued. Expected Outcomes/Goals Expected Outcomes/Goals 1. Pt to meet 100% of estimated nutritional needs on tube feeding with tolerance.
--- NOTE | 2016-08-29 05:08 | Progress Notes ---
DATE: 08/28/2016 SUBJECTIVE: The patient was seen in his room, lying in the bed. The patient is a poor historian due to medical condition. Otherwise, the patient appears to be in no acute distress. OBJECTIVE: HEENT: Head is atraumatic and normocephalic. Eyes: Bilateral pupils are equally round and reactive. NECK: Supple. No JVD. CARDIOVASCULAR: S1 and S2, without murmur. PULMONARY: Decreased breath sounds, aspiration risk. GASTROINTESTINAL: Soft and nontender without guarding, currently getting feeding via gastrostomy tube. MUSCULOSKELETAL: No edema and no clubbing. ASSESSMENT: 1. Urinary tract infection. 2. Dementia. 3. Hypertension. 4. Diabetes Mellitus. 5. Anemia. 6. Dysphagia. PLAN: We will keep the patient inpatient in Med/Surg floor. We will follow up with the valve inspector and we will follow up with the ID doctor for management of the patient. JOB# [id number]
[2016-08-29 07:19] LABS: ANION GAP 3.5 (7.0-16.0); BUN - UREA NITROGEN 38 mg/dL (7-25); BUN/CREATININE RATIO 34.5; CALCIUM SERUM 8.7 mg/dL (8.6-10.3); CARBON DIOXIDE 26.6 mEq/L (21.0-31.0); CHLORIDE 107 mEq/L (98-107); CREATININE - SERUM 1.1 mg/dL (0.7-1.3); GLUCOSE 137 mg/dL (70-105); POTASSIUM SERUM 4.1 mEq/L (3.5-5.1); SODIUM SERUM 133 mEq/L (136-145)
[2016-08-29 07:23] LABS: % BASOPHILS 0.5 % (0.0-2.0); % EOSINOPHILS 0.9 % (0.0-5.0); % LYMPHOCYTES 5.8 % (20.0-50.0); % MONOCYTES 5.6 % (2.0-10.0); % NEUTROPHILS 87.2 % (40.0-80.0); MEAN CELL VOLUME 83.2 fl (80-99); MEAN CORPUSCULAR HEMOGLOBIN 27.9 pg (27.0-31.0); MEAN CORPUSCULAR HGB CONC 33.5 pg (28.0-36.0); MEAN PLATELET VOLUME 8.1 fl; NEUTROPHILE ABSOLUTE 13.6 Th/cmm (1.8-8.0); RED BLOOD COUNT 2.89 Mil/cmm (3.80-5.80); RED CELL DISTRIBUTION WIDTH 17.9 % (11.5-20.0)
[2016-08-29 07:28] LABS: HEMOGLOBIN 8.1 gm/dL (12.6-17.4); WHITE BLOOD COUNT 15.6 Th/cmm (4.8-10.8)
[2016-08-29 07:29] LABS: PLATELET COUNT 362 Th/cmm (150-400)
[2016-08-29] MEDS: INSULIN ASPART SLIDING SCALE 100 UNITS/ML UNIT SUBQ SCH ×2 (09:00→16:07)
[2016-08-29] MEDS: Ferrous Sulfate 325 MG TAB PO SCH ×3 (10:06→21:42)
[2016-08-29] MEDS: Meropenem 1 GM in Sodium Chloride 0.9% 100 ML IV SCH ×2 (10:24→21:42)
--- NOTE | 2016-08-29 10:52 | Infectious Disease Prog Note ---
Infectious Disease Subjective - Review of Systems Service Date: 08/29/16 Subjective: there is no new change. high ormal temperature up to 100.2 degree F. Infectious Disease Objective - Results Result Diagrams: 08/29/16 06:45 08/29/16 06:45 Recent Labs: Laboratory Last Values WBC 15.6 Th/cmm (4.8-10.8) H D 08/29/16 06:45 RBC 2.89 Mil/cmm (3.80-5.80) L 08/29/16 06:45 Hgb 8.1 gm/dL (12.6-17.4) L 08/29/16 06:45 Hct 24.0 % (39.0-49.0) L D 08/29/16 06:45 MCV 83.2 fl (80-99) 08/29/16 06:45 MCH 27.9 pg (27.0-31.0) 08/29/16 06:45 MCHC Differential 33.5 pg (28.0-36.0) 08/29/16 06:45 RDW 17.9 % (11.5-20.0) 08/29/16 06:45 Plt Count 362 Th/cmm (150-400) D 08/29/16 06:45 MPV 8.1 fl 08/29/16 06:45 Neutrophils % 87.2 % (40.0-80.0) H 08/29/16 06:45 Band Neutrophils % 4 % (0-10) 08/28/16 05:10 Lymphocytes % 5.8 % (20.0-50.0) L 08/29/16 06:45 Monocytes % 5.6 % (2.0-10.0) 08/29/16 06:45 Eosinophils % 0.9 % (0.0-5.0) 08/29/16 06:45 Basophils % 0.5 % (0.0-2.0) 08/29/16 06:45 Neutrophils (Manual) 76 % (40-80) 08/28/16 05:10 Lymphocytes 10 % (20-50) L 08/28/16 05:10 Monocytes 10 % (2-10) 08/28/16 05:10 Eosinophils 1 % (0-5) 08/27/16 05:43 Basophils 0 % (0-3) 08/27/16 05:43 Nucleated RBCs 1.0 % (0-0) H 08/26/16 06:33 Platelet Estimate ADEQUATE (NORMAL) 08/28/16 05:10 Platelet Morphology (NORMAL) 08/28/16 05:10 Anisocytosis 1+ 08/26/16 06:33 RBC Morph Micro Appear NORMAL (NORMAL) 08/27/16 05:43 ESR > 140 mm/hr (0-20) H 08/22/16 13:00 Eos Smear Source URINE 08/25/16 02:50 Eos Smear Total Cells NONE SEEN (NONE SEEN) 08/25/16 02:50 PT 10.5 SECONDS (9.5-11.5) 08/22/16 13:50 INR 1.01 (0.5-1.4) 08/22/16 13:50 PTT (Actin FS) 25.9 SECONDS (26.0-38.0) L 08/22/16 13:50 Sodium 133 mEq/L (136-145) L 08/29/16 06:45 Potassium 4.1 mEq/L (3.5-5.1) 08/29/16 06:45 Chloride 107 mEq/L (98-107) 08/29/16 06:45 Carbon Dioxide 26.6 mEq/L (21.0-31.0) 08/29/16 06:45 Anion Gap 3.5 (7.0-16.0) L 08/29/16 06:45 BUN 38 mg/dL (7-25) H 08/29/16 06:45 Creatinine 1.1 mg/dL (0.7-1.3) 08/29/16 06:45 Est GFR ( Amer) TNP 08/29/16 06:45 Est GFR (Non-Af Amer) TNP 08/29/16 06:45 BUN/Creatinine Ratio 34.5 08/29/16 06:45 Glucose 137 mg/dL (70-105) H 08/29/16 06:45 POC Glucose 125 MG/DL (70 - 105) H 08/29/16 07:57 Whole Bld Lactic Acid 5.27 mmol/L (0.60-1.99) H* 08/22/16 15:55 Uric Acid 8.1 mg/dL (4.4-7.6) H 08/25/16 05:46 Calcium 8.7 mg/dL (8.6-10.3) 08/29/16 06:45 Phosphorus 2.3 mg/dL (2.5-5.0) L 08/25/16 05:46 Magnesium 2.0 mg/dL (1.9-2.7) 08/25/16 05:46 Total Bilirubin 0.4 mg/dL (0.3-1.0) 08/25/16 05:46 AST 32 U/L (13-39) 08/25/16 05:46 ALT 17 U/L (7-52) 08/25/16 05:46 Alkaline Phosphatase 88 U/L (34-104) 08/25/16 05:46 Creatine Kinase 191 U/L (30-223) 08/22/16 13:50 C-Reactive Protein 26.0 mg/dL (0.0-0.9) H 08/22/16 13:00 Total Protein 8.2 gm/dL (6.0-8.3) 08/25/16 05:46 Albumin 2.4 gm/dL (4.2-5.5) L 08/25/16 05:46 Globulin 5.8 gm/dL 08/25/16 05:46 Albumin/Globulin Ratio 0.4 (1.0-1.8) L 08/25/16 05:46 Urine Source CATH 08/22/16 14:50 Urine Color YELLOW 08/22/16 14:50 Urine Clarity CLOUDY (CLEAR) 08/22/16 14:50 Urine pH 8.5 08/22/16 14:50 Ur Specific [place] 1.015 (1.005-1.030) 08/22/16 14:50 Urine Protein 100 mg/dL (NEGATIVE) H 08/22/16 14:50 Urine Glucose (UA) NEGATIVE mg/dL (NEGATIVE) 08/22/16 14:50 Urine Ketones NEGATIVE mg/dL (NEGATIVE) 08/22/16 14:50 Urine Blood LARGE (NEGATIVE) H 08/22/16 14:50 Urine Nitrate NEGATIVE (NEGATIVE) 08/22/16 14:50 Urine Bilirubin NEGATIVE (NEGATIVE) 08/22/16 14:50 Urine Urobilinogen 1.0 E.U./dL (0.2 - 1.0) 08/22/16 14:50 Ur Leukocyte Esterase LARGE (NEGATIVE) H 08/22/16 14:50 Urine RBC 50-100 /hpf (0-5) H 08/22/16 14:50 Urine WBC 10-25 /hpf (0-5) H 08/22/16 14:50 Ur Epithelial Cells NONE SEEN /lpf (FEW) 08/22/16 14:50 Urine Bacteria FEW /hpf (NONE SEEN) 08/22/16 14:50 Urine Osmolality 436 mOsmol/kg 08/25/16 02:50 Ur Random Sodium 65 mmol/L 08/25/16 02:50 Urine Creatinine 33.7 mg/dl (Not Estab.) 08/25/16 02:50 Urine Microalbumin 56.2 ug/mL (Not Estab.) 08/25/16 02:50 Microalb/Creat Ratio 166.8 mg/g creat (0.0-30.0) H 08/25/16 02:50 Blood Type O POSITIVE 08/22/16 13:50 Antibody Screen NEGATIVE 08/22/16 13:50 Crossmatch See Detail 08/22/16 13:50 - Physical Exam Vitals and I&O: Vital Signs Temp 99.0 F 08/29/16 03:55 Pulse 114 08/29/16 03:55 Resp 18 08/29/16 03:55 BP 108/73 08/29/16 03:55 Pulse Ox 98 08/29/16 03:55 Intake & Output 08/28/16 08/29/16 08/29/16 18:59 06:59 18:59 Intake Total 1750 880 Output Total 1 Balance 1749 880 Intake: Intake, IV Amount 1100 100 Dextrose 5% 1,000 ml @ 75 1000 mls/hr IV .[id number] [facility] Rx#:[id number] Meropenem 1 gm In Sodium 100 100 Chloride 0.9% 100 ml @ 100 mls/hr IV Q12HR [facility] Rx#:[id number] Oral 0 Tube Feeding 650 780 Output: Stool 1 Other: # Voids 3 Stool Characteristics Soft Formed Active Medications: Current Medications Acetaminophen (Tylenol 650mg/20.3ml Suspension) 650 mg PO Q4H PRN PRN Reason: Fever > 101 Stop: 10/26/16 13:43 Last Admin: 08/28/16 10:35 Dose: 650 mg Docusate Sodium (Colace) 100 mg PO HS [facility] Stop: 10/21/16 20:59 Last Admin: 08/28/16 21:35 Dose: 100 mg Ferrous Sulfate (Iron) 325 mg PO TID [facility] Stop: 10/21/16 20:59 Last Admin: 08/29/16 10:06 Dose: 325 mg Dextrose (D5w) 1,000 mls @ 75 mls/hr IV .[id number] [facility] Stop: 10/23/16 14:44 Last Admin: 08/28/16 12:42 Dose: 75 mls/hr Meropenem 1 gm/ Sodium (Chloride) 100 mls @ 100 mls/hr IV Q12HR [facility] Stop: 10/25/16 08:59 Last Admin: 08/29/16 10:24 Dose: 100 mls/hr Insulin Aspart (Novolog Insulin Sliding Scale) 2 - 12 units SUBQ BID [facility] PRN Reason: Protocol Stop: 10/21/16 17:29 Last Admin: 08/29/16 09:00 Dose: Not Given Metformin HCl (Glucophage) 500 mg PO BID [facility] Stop: 10/22/16 09:59 Last Admin: 08/29/16 10:06 Dose: 500 mg General: no acute distress, cachectic HEENT: atraumatic, normocephalic, PERRLA, EOMI Neck: supple Cardiovascular: S1S2, regular Lungs: clear to auscultation bilaterally, clear to percussion Abdomen: soft, no tender, no distended Extremities: no cyanosis, no clubbing, no edema Neurological: awake Skin: intact (wound on both hips.), other - Procedures Procedures: Procedures Procedure Code Date BLOOD TRANSFUSION SERVICE 40431 08/22/16 TRANSFUSE NONAUT RED BLOOD CELLS IN PERIPH VEIN, PERC 71180Z4 08/22/16 Infectious Disease Assmt/Plan - Problem List Patient Problems: All Active Problems Anemia (Acute) D64.9 Dehydration syndrome (Acute) E86.0 Dehydration with hypernatremia (Acute) E87.0 ELEVATED WHITE BLOOD CELL COUNT (Acute) Prerenal azotemia (Acute) R79.89 SIRS (systemic inflammatory response syndrome) (Acute) R65.10 anemia (Acute) persistant leukocytosis (Acute) rosepsis (Acute) sirs (Acute) uti (Acute) - Assessment Assessment: Impression: 1. UTI. 2. Leukocytosis improving. 3. Dementia. 4. R/o abscess or phlegmon in right hip soft tissue. 5. Sepsis. 6. superficial wounds both hips. Recommendations: DW Dr Tacos Boyd on phone and dw him regarding abnormal CT scan. We agreed to call strategy execution consultant and may get needle aspiration. Change antibiotics to zosyn. Nutritional Asmnt/Malnutr-PDOC - Dietary Evaluation Malnutrition Findings (Please click <Entered> for more info): Nutritional Asmnt/Malnutrition Start: 08/23/16 09: 33 Text: Status: Complete Freq: Document 08/23/16 09:34 GSUN (Rec: 08/23/16 09:58 GSUN [email or web address]) Nutritional Asmnt/Malnutrition Patient General Information Nutritional Screening High Risk Screening Diagnosis ER: Sepsis due to UTI, DM2, HTN Pertinent Medical Hx/Surgical Hx ER: Dementia, DM, HTN Subjective Information 81 year old male from SNF, per ER notes, admitted due to acute severe, abnormal labs. Pt with eyes closed, moving hands around, appeared to be mumbling to self, did not respond to RD. Pt apepared thin overall, mild wasting to temporals. Spoke to RN, pt tolerating tube feeding well, no diarrhea noted. Current Diet Order/ Nutrition Support Diabetisource 60ml/hr x 20hrs, providing 1440kcal. Water flush 200ml qshift Pertinent Medications D5, Colace, Iron, Novolog, Glucophage Pertinent Labs 08/22: BUN 72H, creatinine 1.6H, 161H Nutritional Hx/Data Height 1.7 m Height (Calculated Centimeters) 170.2 Current Weight (lbs) 58.332 kg Weight (Calculated Kilograms) 58.3 Weight (Calculated Grams) 79143.0 [place] Body Weight 148lb Weight Status Approriate GI Symptoms Food Allergies No Cultural/Ethnic/[employer] Belief SNF order: Glucerna 1.5 at 60ml/hr x 20hrs, providing 1800kcal. Water flush 50ml/hr x 20hrs, providing 1000ml. Skin Integrity/Comment: Saul 14. Right hip pressure area. Estimated Nutritional Goals BEE in Kcals: Using Current wt Calories/Kcals/Kg CBW 58.3kg Kcals Calculated 1749-2041kcal (30-35kcal/kg) Protein: Using Current wt Protein Calculated 76-93g (1.3-1.6g/kg) Fluid: ml 1749-2041ml (1ml/kcal) Nutritional Problem 1. Problem Problem Inadequate intake from enteral /parenteral nutrition infusion related to Etiology estimated nutritional needs, hypermetabolic state aeb Signs/Symptoms: only providing to meet 82% of lower end of estimated nutritional needs. Intervention/Recommendation Comments 1. Recommend Diabetisource 65ml/hr x 24hrs, providing 1872kcal, 94g protein, 1276ml free water. Pt was receiving 1800kcal at [facility], current diet order only providing 1440kcal. 2. Recommend 120ml water flush q6hrs when IV discontinued. Expected Outcomes/Goals Expected Outcomes/Goals 1. Pt to meet 100% of estimated nutritional needs on tube feeding with tolerance.
--- NOTE | 2016-08-29 12:31 | General Progress Note ---
Subjective - Review of Systems Service Date: 08/29/16 Events since last encounter: persistent leukocytosis has hip decubitus ulcers likely etiology Plan: excisional debridement and wound vac application Objective - Results Result Diagrams: 08/29/16 06:45 08/29/16 06:45 Recent Labs: Laboratory Last Values WBC 15.6 Th/cmm (4.8-10.8) H D 08/29/16 06:45 RBC 2.89 Mil/cmm (3.80-5.80) L 08/29/16 06:45 Hgb 8.1 gm/dL (12.6-17.4) L 08/29/16 06:45 Hct 24.0 % (39.0-49.0) L D 08/29/16 06:45 MCV 83.2 fl (80-99) 08/29/16 06:45 MCH 27.9 pg (27.0-31.0) 08/29/16 06:45 MCHC Differential 33.5 pg (28.0-36.0) 08/29/16 06:45 RDW 17.9 % (11.5-20.0) 08/29/16 06:45 Plt Count 362 Th/cmm (150-400) D 08/29/16 06:45 MPV 8.1 fl 08/29/16 06:45 Neutrophils % 87.2 % (40.0-80.0) H 08/29/16 06:45 Band Neutrophils % 4 % (0-10) 08/28/16 05:10 Lymphocytes % 5.8 % (20.0-50.0) L 08/29/16 06:45 Monocytes % 5.6 % (2.0-10.0) 08/29/16 06:45 Eosinophils % 0.9 % (0.0-5.0) 08/29/16 06:45 Basophils % 0.5 % (0.0-2.0) 08/29/16 06:45 Neutrophils (Manual) 76 % (40-80) 08/28/16 05:10 Lymphocytes 10 % (20-50) L 08/28/16 05:10 Monocytes 10 % (2-10) 08/28/16 05:10 Eosinophils 1 % (0-5) 08/27/16 05:43 Basophils 0 % (0-3) 08/27/16 05:43 Nucleated RBCs 1.0 % (0-0) H 08/26/16 06:33 Platelet Estimate ADEQUATE (NORMAL) 08/28/16 05:10 Platelet Morphology (NORMAL) 08/28/16 05:10 Anisocytosis 1+ 08/26/16 06:33 RBC Morph Micro Appear NORMAL (NORMAL) 08/27/16 05:43 ESR > 140 mm/hr (0-20) H 08/22/16 13:00 Eos Smear Source URINE 08/25/16 02:50 Eos Smear Total Cells NONE SEEN (NONE SEEN) 08/25/16 02:50 PT 10.5 SECONDS (9.5-11.5) 08/22/16 13:50 INR 1.01 (0.5-1.4) 08/22/16 13:50 PTT (Actin FS) 25.9 SECONDS (26.0-38.0) L 08/22/16 13:50 Sodium 133 mEq/L (136-145) L 08/29/16 06:45 Potassium 4.1 mEq/L (3.5-5.1) 08/29/16 06:45 Chloride 107 mEq/L (98-107) 08/29/16 06:45 Carbon Dioxide 26.6 mEq/L (21.0-31.0) 08/29/16 06:45 Anion Gap 3.5 (7.0-16.0) L 08/29/16 06:45 BUN 38 mg/dL (7-25) H 08/29/16 06:45 Creatinine 1.1 mg/dL (0.7-1.3) 08/29/16 06:45 Est GFR ( Amer) TNP 08/29/16 06:45 Est GFR (Non-Af Amer) TNP 08/29/16 06:45 BUN/Creatinine Ratio 34.5 08/29/16 06:45 Glucose 137 mg/dL (70-105) H 08/29/16 06:45 POC Glucose 125 MG/DL (70 - 105) H 08/29/16 07:57 Whole Bld Lactic Acid 5.27 mmol/L (0.60-1.99) H* 08/22/16 15:55 Uric Acid 8.1 mg/dL (4.4-7.6) H 08/25/16 05:46 Calcium 8.7 mg/dL (8.6-10.3) 08/29/16 06:45 Phosphorus 2.3 mg/dL (2.5-5.0) L 08/25/16 05:46 Magnesium 2.0 mg/dL (1.9-2.7) 08/25/16 05:46 Total Bilirubin 0.4 mg/dL (0.3-1.0) 08/25/16 05:46 AST 32 U/L (13-39) 08/25/16 05:46 ALT 17 U/L (7-52) 08/25/16 05:46 Alkaline Phosphatase 88 U/L (34-104) 08/25/16 05:46 Creatine Kinase 191 U/L (30-223) 08/22/16 13:50 C-Reactive Protein 26.0 mg/dL (0.0-0.9) H 08/22/16 13:00 Total Protein 8.2 gm/dL (6.0-8.3) 08/25/16 05:46 Albumin 2.4 gm/dL (4.2-5.5) L 08/25/16 05:46 Globulin 5.8 gm/dL 08/25/16 05:46 Albumin/Globulin Ratio 0.4 (1.0-1.8) L 08/25/16 05:46 Urine Source CATH 08/22/16 14:50 Urine Color YELLOW 08/22/16 14:50 Urine Clarity CLOUDY (CLEAR) 08/22/16 14:50 Urine pH 8.5 08/22/16 14:50 Ur Specific [place] 1.015 (1.005-1.030) 08/22/16 14:50 Urine Protein 100 mg/dL (NEGATIVE) H 08/22/16 14:50 Urine Glucose (UA) NEGATIVE mg/dL (NEGATIVE) 08/22/16 14:50 Urine Ketones NEGATIVE mg/dL (NEGATIVE) 08/22/16 14:50 Urine Blood LARGE (NEGATIVE) H 08/22/16 14:50 Urine Nitrate NEGATIVE (NEGATIVE) 08/22/16 14:50 Urine Bilirubin NEGATIVE (NEGATIVE) 08/22/16 14:50 Urine Urobilinogen 1.0 E.U./dL (0.2 - 1.0) 08/22/16 14:50 Ur Leukocyte Esterase LARGE (NEGATIVE) H 08/22/16 14:50 Urine RBC 50-100 /hpf (0-5) H 08/22/16 14:50 Urine WBC 10-25 /hpf (0-5) H 08/22/16 14:50 Ur Epithelial Cells NONE SEEN /lpf (FEW) 08/22/16 14:50 Urine Bacteria FEW /hpf (NONE SEEN) 08/22/16 14:50 Urine Osmolality 436 mOsmol/kg 08/25/16 02:50 Ur Random Sodium 65 mmol/L 08/25/16 02:50 Urine Creatinine 33.7 mg/dl (Not Estab.) 08/25/16 02:50 Urine Microalbumin 56.2 ug/mL (Not Estab.) 08/25/16 02:50 Microalb/Creat Ratio 166.8 mg/g creat (0.0-30.0) H 08/25/16 02:50 Blood Type O POSITIVE 08/22/16 13:50 Antibody Screen NEGATIVE 08/22/16 13:50 Crossmatch See Detail 08/22/16 13:50 - Physical Exam Vitals and I&O: Vital Signs Temp 99.2 F 08/29/16 12:00 Pulse 120 08/29/16 12:00 Resp 19 08/29/16 12:00 BP 128/68 08/29/16 12:00 Pulse Ox 96 08/29/16 12:00 Intake & Output 08/28/16 08/29/16 08/29/16 18:59 06:59 18:59 Intake Total 1750 880 Output Total 1 Balance 1749 880 Intake: Intake, IV Amount 1100 100 Dextrose 5% 1,000 ml @ 75 1000 mls/hr IV .[id number] [facility] Rx#:[id number] Meropenem 1 gm In Sodium 100 100 Chloride 0.9% 100 ml @ 100 mls/hr IV Q12HR [facility] Rx#:[id number] Oral 0 Tube Feeding 650 780 Output: Stool 1 Other: # Voids 3 Stool Characteristics Soft Formed Active Medications: Current Medications Acetaminophen (Tylenol 650mg/20.3ml Suspension) 650 mg PO Q4H PRN PRN Reason: Fever > 101 Stop: 10/26/16 13:43 Last Admin: 08/28/16 10:35 Dose: 650 mg Docusate Sodium (Colace) 100 mg PO HS [facility] Stop: 10/21/16 20:59 Last Admin: 08/28/16 21:35 Dose: 100 mg Ferrous Sulfate (Iron) 325 mg PO TID [facility] Stop: 10/21/16 20:59 Last Admin: 08/29/16 10:06 Dose: 325 mg Dextrose (D5w) 1,000 mls @ 75 mls/hr IV .[id number] [facility] Stop: 10/23/16 14:44 Last Admin: 08/28/16 12:42 Dose: 75 mls/hr Meropenem 1 gm/ Sodium (Chloride) 100 mls @ 100 mls/hr IV Q12HR [facility] Stop: 10/25/16 08:59 Last Admin: 08/29/16 10:24 Dose: 100 mls/hr Insulin Aspart (Novolog Insulin Sliding Scale) 2 - 12 units SUBQ BID [facility] PRN Reason: Protocol Stop: 10/21/16 17:29 Last Admin: 08/29/16 09:00 Dose: Not Given Metformin HCl (Glucophage) 500 mg PO BID [facility] Stop: 10/22/16 09:59 Last Admin: 08/29/16 10:06 Dose: 500 mg - Procedures Procedures: Procedures Procedure Code Date BLOOD TRANSFUSION SERVICE 93994 08/22/16 TRANSFUSE NONAUT RED BLOOD CELLS IN PERIPH VEIN, PERC 82685S0 08/22/16 Assessment/Plan - Problem List Patient Problems: All Active Problems Anemia (Acute) D64.9 Dehydration syndrome (Acute) E86.0 Dehydration with hypernatremia (Acute) E87.0 ELEVATED WHITE BLOOD CELL COUNT (Acute) Prerenal azotemia (Acute) R79.89 SIRS (systemic inflammatory response syndrome) (Acute) R65.10 anemia (Acute) persistant leukocytosis (Acute) rosepsis (Acute) sirs (Acute) uti (Acute) Nutritional Asmnt/Malnutr-PDOC - Dietary Evaluation Malnutrition Findings (Please click <Entered> for more info): Nutritional Asmnt/Malnutrition Start: 08/23/16 09: 33 Text: Status: Complete Freq: Document 08/23/16 09:34 GSUN (Rec: 08/23/16 09:58 GSUN [email or web address]) Nutritional Asmnt/Malnutrition Patient General Information Nutritional Screening High Risk Screening Diagnosis ER: Sepsis due to UTI, DM2, HTN Pertinent Medical Hx/Surgical Hx ER: Dementia, DM, HTN Subjective Information 81 year old male from [facility], per ER notes, admitted due to acute severe, abnormal labs. Pt with eyes closed, moving hands around, appeared to be mumbling to self, did not respond to RD. Pt apepared thin overall, mild wasting to temporals. Spoke to RN, pt tolerating tube feeding well, no diarrhea noted. Current Diet Order/ Nutrition Support Diabetisource 60ml/hr x 20hrs, providing 1440kcal. Water flush 200ml qshift Pertinent Medications D5, Colace, Iron, Novolog, Glucophage Pertinent Labs 08/22: BUN 72H, creatinine 1.6H, 161H Nutritional Hx/Data Height 1.7 m Height (Calculated Centimeters) 170.2 Current Weight (lbs) 58.332 kg Weight (Calculated Kilograms) 58.3 Weight (Calculated Grams) 67027.0 [place] Body Weight 148lb Weight Status Approriate GI Symptoms Food Allergies No Cultural/Ethnic/[employer] Belief [facility] order: Glucerna 1.5 at 60ml/hr x 20hrs, providing 1800kcal. Water flush 50ml/hr x 20hrs, providing 1000ml. Skin Integrity/Comment: Saul 14. Right hip pressure area. Estimated Nutritional Goals BEE in Kcals: Using Current wt Calories/Kcals/Kg CBW 58.3kg Kcals Calculated 1749-2041kcal (30-35kcal/kg) Protein: Using Current wt Protein Calculated 76-93g (1.3-1.6g/kg) Fluid: ml 1749-2041ml (1ml/kcal) Nutritional Problem 1. Problem Problem Inadequate intake from enteral /parenteral nutrition infusion related to Etiology estimated nutritional needs, hypermetabolic state aeb Signs/Symptoms: only providing to meet 82% of lower end of estimated nutritional needs. Intervention/Recommendation Comments 1. Recommend Diabetisource 65ml/hr x 24hrs, providing 1872kcal, 94g protein, 1276ml free water. Pt was receiving 1800kcal at [facility], current diet order only providing 1440kcal. 2. Recommend 120ml water flush q6hrs when IV discontinued. Expected Outcomes/Goals Expected Outcomes/Goals 1. Pt to meet 100% of estimated nutritional needs on tube feeding with tolerance.
--- NOTE | 2016-08-29 15:56 | General Progress Note ---
Subjective - Review of Systems Subjective: ptis somewhat confused sob still has leukocytosis 16k discussed with id Objective - Results Result Diagrams: 08/29/16 06:45 08/29/16 06:45 Recent Labs: Laboratory Last Values WBC 15.6 Th/cmm (4.8-10.8) H D 08/29/16 06:45 RBC 2.89 Mil/cmm (3.80-5.80) L 08/29/16 06:45 Hgb 8.1 gm/dL (12.6-17.4) L 08/29/16 06:45 Hct 24.0 % (39.0-49.0) L D 08/29/16 06:45 MCV 83.2 fl (80-99) 08/29/16 06:45 MCH 27.9 pg (27.0-31.0) 08/29/16 06:45 MCHC Differential 33.5 pg (28.0-36.0) 08/29/16 06:45 RDW 17.9 % (11.5-20.0) 08/29/16 06:45 Plt Count 362 Th/cmm (150-400) D 08/29/16 06:45 MPV 8.1 fl 08/29/16 06:45 Neutrophils % 87.2 % (40.0-80.0) H 08/29/16 06:45 Band Neutrophils % 4 % (0-10) 08/28/16 05:10 Lymphocytes % 5.8 % (20.0-50.0) L 08/29/16 06:45 Monocytes % 5.6 % (2.0-10.0) 08/29/16 06:45 Eosinophils % 0.9 % (0.0-5.0) 08/29/16 06:45 Basophils % 0.5 % (0.0-2.0) 08/29/16 06:45 Neutrophils (Manual) 76 % (40-80) 08/28/16 05:10 Lymphocytes 10 % (20-50) L 08/28/16 05:10 Monocytes 10 % (2-10) 08/28/16 05:10 Eosinophils 1 % (0-5) 08/27/16 05:43 Basophils 0 % (0-3) 08/27/16 05:43 Nucleated RBCs 1.0 % (0-0) H 08/26/16 06:33 Platelet Estimate ADEQUATE (NORMAL) 08/28/16 05:10 Platelet Morphology (NORMAL) 08/28/16 05:10 Anisocytosis 1+ 08/26/16 06:33 RBC Morph Micro Appear NORMAL (NORMAL) 08/27/16 05:43 ESR > 140 mm/hr (0-20) H 08/22/16 13:00 Eos Smear Source URINE 08/25/16 02:50 Eos Smear Total Cells NONE SEEN (NONE SEEN) 08/25/16 02:50 PT 10.5 SECONDS (9.5-11.5) 08/22/16 13:50 INR 1.01 (0.5-1.4) 08/22/16 13:50 PTT (Actin FS) 25.9 SECONDS (26.0-38.0) L 08/22/16 13:50 Sodium 133 mEq/L (136-145) L 08/29/16 06:45 Potassium 4.1 mEq/L (3.5-5.1) 08/29/16 06:45 Chloride 107 mEq/L (98-107) 08/29/16 06:45 Carbon Dioxide 26.6 mEq/L (21.0-31.0) 08/29/16 06:45 Anion Gap 3.5 (7.0-16.0) L 08/29/16 06:45 BUN 38 mg/dL (7-25) H 08/29/16 06:45 Creatinine 1.1 mg/dL (0.7-1.3) 08/29/16 06:45 Est GFR ( Amer) TNP 08/29/16 06:45 Est GFR (Non-Af Amer) TNP 08/29/16 06:45 BUN/Creatinine Ratio 34.5 08/29/16 06:45 Glucose 137 mg/dL (70-105) H 08/29/16 06:45 POC Glucose 125 MG/DL (70 - 105) H 08/29/16 07:57 Whole Bld Lactic Acid 5.27 mmol/L (0.60-1.99) H* 08/22/16 15:55 Uric Acid 8.1 mg/dL (4.4-7.6) H 08/25/16 05:46 Calcium 8.7 mg/dL (8.6-10.3) 08/29/16 06:45 Phosphorus 2.3 mg/dL (2.5-5.0) L 08/25/16 05:46 Magnesium 2.0 mg/dL (1.9-2.7) 08/25/16 05:46 Total Bilirubin 0.4 mg/dL (0.3-1.0) 08/25/16 05:46 AST 32 U/L (13-39) 08/25/16 05:46 ALT 17 U/L (7-52) 08/25/16 05:46 Alkaline Phosphatase 88 U/L (34-104) 08/25/16 05:46 Creatine Kinase 191 U/L (30-223) 08/22/16 13:50 C-Reactive Protein 26.0 mg/dL (0.0-0.9) H 08/22/16 13:00 Total Protein 8.2 gm/dL (6.0-8.3) 08/25/16 05:46 Albumin 2.4 gm/dL (4.2-5.5) L 08/25/16 05:46 Globulin 5.8 gm/dL 08/25/16 05:46 Albumin/Globulin Ratio 0.4 (1.0-1.8) L 08/25/16 05:46 Urine Source CATH 08/22/16 14:50 Urine Color YELLOW 08/22/16 14:50 Urine Clarity CLOUDY (CLEAR) 08/22/16 14:50 Urine pH 8.5 08/22/16 14:50 Ur Specific [place] 1.015 (1.005-1.030) 08/22/16 14:50 Urine Protein 100 mg/dL (NEGATIVE) H 08/22/16 14:50 Urine Glucose (UA) NEGATIVE mg/dL (NEGATIVE) 08/22/16 14:50 Urine Ketones NEGATIVE mg/dL (NEGATIVE) 08/22/16 14:50 Urine Blood LARGE (NEGATIVE) H 08/22/16 14:50 Urine Nitrate NEGATIVE (NEGATIVE) 08/22/16 14:50 Urine Bilirubin NEGATIVE (NEGATIVE) 08/22/16 14:50 Urine Urobilinogen 1.0 E.U./dL (0.2 - 1.0) 08/22/16 14:50 Ur Leukocyte Esterase LARGE (NEGATIVE) H 08/22/16 14:50 Urine RBC 50-100 /hpf (0-5) H 08/22/16 14:50 Urine WBC 10-25 /hpf (0-5) H 08/22/16 14:50 Ur Epithelial Cells NONE SEEN /lpf (FEW) 08/22/16 14:50 Urine Bacteria FEW /hpf (NONE SEEN) 08/22/16 14:50 Urine Osmolality 436 mOsmol/kg 08/25/16 02:50 Ur Random Sodium 65 mmol/L 08/25/16 02:50 Urine Creatinine 33.7 mg/dl (Not Estab.) 08/25/16 02:50 Urine Microalbumin 56.2 ug/mL (Not Estab.) 08/25/16 02:50 Microalb/Creat Ratio 166.8 mg/g creat (0.0-30.0) H 08/25/16 02:50 Blood Type O POSITIVE 08/22/16 13:50 Antibody Screen NEGATIVE 08/22/16 13:50 Crossmatch See Detail 08/22/16 13:50 - Physical Exam Vitals and I&O: Vital Signs Temp 99.2 F 08/29/16 12:00 Pulse 120 08/29/16 12:00 Resp 19 08/29/16 12:00 BP 128/68 08/29/16 12:00 Pulse Ox 96 08/29/16 12:00 Intake & Output 08/28/16 08/29/16 08/29/16 18:59 06:59 18:59 Intake Total 1750 880 Output Total 1 Balance 1749 880 Intake: Intake, IV Amount 1100 100 Dextrose 5% 1,000 ml @ 75 1000 mls/hr IV .[id number] [facility] Rx#:[id number] Meropenem 1 gm In Sodium 100 100 Chloride 0.9% 100 ml @ 100 mls/hr IV Q12HR [facility] Rx#:[id number] Oral 0 Tube Feeding 650 780 Output: Stool 1 Other: # Voids 3 Stool Characteristics Soft Soft Formed Formed Active Medications: Current Medications Acetaminophen (Tylenol 650mg/20.3ml Suspension) 650 mg PO Q4H PRN PRN Reason: Fever > 101 Stop: 10/26/16 13:43 Last Admin: 08/28/16 10:35 Dose: 650 mg Docusate Sodium (Colace) 100 mg PO HS [facility] Stop: 10/21/16 20:59 Last Admin: 08/28/16 21:35 Dose: 100 mg Ferrous Sulfate (Iron) 325 mg PO TID [facility] Stop: 10/21/16 20:59 Last Admin: 08/29/16 15:17 Dose: 325 mg Dextrose (D5w) 1,000 mls @ 75 mls/hr IV .[id number] [facility] Stop: 10/23/16 14:44 Last Admin: 08/28/16 12:42 Dose: 75 mls/hr Meropenem 1 gm/ Sodium (Chloride) 100 mls @ 100 mls/hr IV Q12HR [facility] Stop: 10/25/16 08:59 Last Admin: 08/29/16 10:24 Dose: 100 mls/hr Insulin Aspart (Novolog Insulin Sliding Scale) 2 - 12 units SUBQ BID [facility] PRN Reason: Protocol Stop: 10/21/16 17:29 Last Admin: 08/29/16 09:00 Dose: Not Given Metformin HCl (Glucophage) 500 mg PO BID [facility] Stop: 10/22/16 09:59 Last Admin: 08/29/16 10:06 Dose: 500 mg - Procedures Procedures: Procedures Procedure Code Date BLOOD TRANSFUSION SERVICE 37152 08/22/16 TRANSFUSE NONAUT RED BLOOD CELLS IN PERIPH VEIN, PERC 32046I7 08/22/16 Assessment/Plan - Problem List Patient Problems: All Active Problems Anemia (Acute) D64.9 Dehydration syndrome (Acute) E86.0 Dehydration with hypernatremia (Acute) E87.0 ELEVATED WHITE BLOOD CELL COUNT (Acute) Prerenal azotemia (Acute) R79.89 SIRS (systemic inflammatory response syndrome) (Acute) R65.10 anemia (Acute) persistant leukocytosis (Acute) rosepsis (Acute) sirs (Acute) uti (Acute) - Plan Plan: increse fluis antibiotics Nutritional Asmnt/Malnutr-PDOC - Dietary Evaluation Malnutrition Findings (Please click <Entered> for more info): Nutritional Asmnt/Malnutrition Start: 08/23/16 09: 33 Text: Status: Complete Freq: Document 08/23/16 09:34 GSUN (Rec: 08/23/16 09:58 [email or web address]) Nutritional Asmnt/Malnutrition Patient General Information Nutritional Screening High Risk Screening Diagnosis ER: Sepsis due to UTI, DM2, HTN Pertinent Medical Hx/Surgical Hx ER: Dementia, DM, HTN Subjective Information 81 year old male from SNF, per ER notes, admitted due to acute severe, abnormal labs. Pt with eyes closed, moving hands around, appeared to be mumbling to self, did not respond to RD. Pt apepared thin overall, mild wasting to temporals. Spoke to RN, pt tolerating tube feeding well, no diarrhea noted. Current Diet Order/ Nutrition Support Diabetisource 60ml/hr x 20hrs, providing 1440kcal. Water flush 200ml qshift Pertinent Medications D5, Colace, Iron, Novolog, Glucophage Pertinent Labs 08/22: BUN 72H, creatinine 1.6H, 161H Nutritional Hx/Data Height 1.7 m Height (Calculated Centimeters) 170.2 Current Weight (lbs) 58.332 kg Weight (Calculated Kilograms) 58.3 Weight (Calculated Grams) 14709.0 [place] Body Weight 148lb Weight Status Approriate GI Symptoms Food Allergies No Cultural/Ethnic/Restorationism Belief [facility] order: Glucerna 1.5 at 60ml/hr x 20hrs, providing 1800kcal. Water flush 50ml/hr x 20hrs, providing 1000ml. Skin Integrity/Comment: Saul 14. Right hip pressure area. Estimated Nutritional Goals BEE in Kcals: Using Current wt Calories/Kcals/Kg CBW 58.3kg Kcals Calculated 1749-2041kcal (30-35kcal/kg) Protein: Using Current wt Protein Calculated 76-93g (1.3-1.6g/kg) Fluid: ml 1749-2041ml (1ml/kcal) Nutritional Problem 1. Problem Problem Inadequate intake from enteral /parenteral nutrition infusion related to Etiology estimated nutritional needs, hypermetabolic state aeb Signs/Symptoms: only providing to meet 82% of lower end of estimated nutritional needs. Intervention/Recommendation Comments 1. Recommend Diabetisource 65ml/hr x 24hrs, providing 1872kcal, 94g protein, 1276ml free water. Pt was receiving 1800kcal at [facility], current diet order only providing 1440kcal. 2. Recommend 120ml water flush q6hrs when IV discontinued. Expected Outcomes/Goals Expected Outcomes/Goals 1. Pt to meet 100% of estimated nutritional needs on tube feeding with tolerance.
--- NOTE | 2016-08-29 16:56 | Consultation ---
DATE OF CONSULTATION: 08/29/2016 REFERRING PHYSICIANS: Farhad Thomas M.D. and Tigre Amaro M.D. REASON FOR CONSULTATION: Leukocytosis, etiology (?). Thank you for referring this patient to me. HISTORY OF PRESENT ILLNESS: This 81-year-old male admitted because of leukocytosis and anemia. The patient [facility] a [facility] and has history of hypertension, diabetes and dementia. LABORATORY STUDIES: Show On admission, WBC of 21,600, no bands. Hemoglobin was 8.1. Chemistry, blood sugar was 116, BUN was 38, creatinine was normal. The patient has undergone a CT scan of the pelvis, which prompted the consultation as there is air in the soft tissues of the right hip. PHYSICAL EXAMINATION: The patient unable to communicate. He has a PEG in place. Abdomen is flat and soft. There are bilateral hip ulcers and one on the left side appears to be worse than one on the right. IMPRESSION: Decubitus ulcer, both hips. We will recommend excisional debridement with possible wound VAC application. JOB# [id number]
--- NOTE | 2016-08-29 18:44 | General Progress Note ---
Subjective - Review of Systems Service Date: 08/29/16 Subjective: sleeping, nonverbal, comfortable Objective - Results Result Diagrams: 08/29/16 06:45 08/29/16 06:45 Recent Labs: Laboratory Last Values WBC 15.6 Th/cmm (4.8-10.8) H D 08/29/16 06:45 RBC 2.89 Mil/cmm (3.80-5.80) L 08/29/16 06:45 Hgb 8.1 gm/dL (12.6-17.4) L 08/29/16 06:45 Hct 24.0 % (39.0-49.0) L D 08/29/16 06:45 MCV 83.2 fl (80-99) 08/29/16 06:45 MCH 27.9 pg (27.0-31.0) 08/29/16 06:45 MCHC Differential 33.5 pg (28.0-36.0) 08/29/16 06:45 RDW 17.9 % (11.5-20.0) 08/29/16 06:45 Plt Count 362 Th/cmm (150-400) D 08/29/16 06:45 MPV 8.1 fl 08/29/16 06:45 Neutrophils % 87.2 % (40.0-80.0) H 08/29/16 06:45 Band Neutrophils % 4 % (0-10) 08/28/16 05:10 Lymphocytes % 5.8 % (20.0-50.0) L 08/29/16 06:45 Monocytes % 5.6 % (2.0-10.0) 08/29/16 06:45 Eosinophils % 0.9 % (0.0-5.0) 08/29/16 06:45 Basophils % 0.5 % (0.0-2.0) 08/29/16 06:45 Neutrophils (Manual) 76 % (40-80) 08/28/16 05:10 Lymphocytes 10 % (20-50) L 08/28/16 05:10 Monocytes 10 % (2-10) 08/28/16 05:10 Eosinophils 1 % (0-5) 08/27/16 05:43 Basophils 0 % (0-3) 08/27/16 05:43 Nucleated RBCs 1.0 % (0-0) H 08/26/16 06:33 Platelet Estimate ADEQUATE (NORMAL) 08/28/16 05:10 Platelet Morphology (NORMAL) 08/28/16 05:10 Anisocytosis 1+ 08/26/16 06:33 RBC Morph Micro Appear NORMAL (NORMAL) 08/27/16 05:43 ESR > 140 mm/hr (0-20) H 08/22/16 13:00 Eos Smear Source URINE 08/25/16 02:50 Eos Smear Total Cells NONE SEEN (NONE SEEN) 08/25/16 02:50 PT 10.5 SECONDS (9.5-11.5) 08/22/16 13:50 INR 1.01 (0.5-1.4) 08/22/16 13:50 PTT (Actin FS) 25.9 SECONDS (26.0-38.0) L 08/22/16 13:50 Sodium 133 mEq/L (136-145) L 08/29/16 06:45 Potassium 4.1 mEq/L (3.5-5.1) 08/29/16 06:45 Chloride 107 mEq/L (98-107) 08/29/16 06:45 Carbon Dioxide 26.6 mEq/L (21.0-31.0) 08/29/16 06:45 Anion Gap 3.5 (7.0-16.0) L 08/29/16 06:45 BUN 38 mg/dL (7-25) H 08/29/16 06:45 Creatinine 1.1 mg/dL (0.7-1.3) 08/29/16 06:45 Est GFR ( Amer) TNP 08/29/16 06:45 Est GFR (Non-Af Amer) TNP 08/29/16 06:45 BUN/Creatinine Ratio 34.5 08/29/16 06:45 Glucose 137 mg/dL (70-105) H 08/29/16 06:45 POC Glucose 91 MG/DL (70 - 105) 08/29/16 16:01 Whole Bld Lactic Acid 5.27 mmol/L (0.60-1.99) H* 08/22/16 15:55 Uric Acid 8.1 mg/dL (4.4-7.6) H 08/25/16 05:46 Calcium 8.7 mg/dL (8.6-10.3) 08/29/16 06:45 Phosphorus 2.3 mg/dL (2.5-5.0) L 08/25/16 05:46 Magnesium 2.0 mg/dL (1.9-2.7) 08/25/16 05:46 Total Bilirubin 0.4 mg/dL (0.3-1.0) 08/25/16 05:46 AST 32 U/L (13-39) 08/25/16 05:46 ALT 17 U/L (7-52) 08/25/16 05:46 Alkaline Phosphatase 88 U/L (34-104) 08/25/16 05:46 Creatine Kinase 191 U/L (30-223) 08/22/16 13:50 C-Reactive Protein 26.0 mg/dL (0.0-0.9) H 08/22/16 13:00 Total Protein 8.2 gm/dL (6.0-8.3) 08/25/16 05:46 Albumin 2.4 gm/dL (4.2-5.5) L 08/25/16 05:46 Globulin 5.8 gm/dL 08/25/16 05:46 Albumin/Globulin Ratio 0.4 (1.0-1.8) L 08/25/16 05:46 Urine Source CATH 08/22/16 14:50 Urine Color YELLOW 08/22/16 14:50 Urine Clarity CLOUDY (CLEAR) 08/22/16 14:50 Urine pH 8.5 08/22/16 14:50 Ur Specific [place] 1.015 (1.005-1.030) 08/22/16 14:50 Urine Protein 100 mg/dL (NEGATIVE) H 08/22/16 14:50 Urine Glucose (UA) NEGATIVE mg/dL (NEGATIVE) 08/22/16 14:50 Urine Ketones NEGATIVE mg/dL (NEGATIVE) 08/22/16 14:50 Urine Blood LARGE (NEGATIVE) H 08/22/16 14:50 Urine Nitrate NEGATIVE (NEGATIVE) 08/22/16 14:50 Urine Bilirubin NEGATIVE (NEGATIVE) 08/22/16 14:50 Urine Urobilinogen 1.0 E.U./dL (0.2 - 1.0) 08/22/16 14:50 Ur Leukocyte Esterase LARGE (NEGATIVE) H 08/22/16 14:50 Urine RBC 50-100 /hpf (0-5) H 08/22/16 14:50 Urine WBC 10-25 /hpf (0-5) H 08/22/16 14:50 Ur Epithelial Cells NONE SEEN /lpf (FEW) 08/22/16 14:50 Urine Bacteria FEW /hpf (NONE SEEN) 08/22/16 14:50 Urine Osmolality 436 mOsmol/kg 08/25/16 02:50 Ur Random Sodium 65 mmol/L 08/25/16 02:50 Urine Creatinine 33.7 mg/dl (Not Estab.) 08/25/16 02:50 Urine Microalbumin 56.2 ug/mL (Not Estab.) 08/25/16 02:50 Microalb/Creat Ratio 166.8 mg/g creat (0.0-30.0) H 08/25/16 02:50 Blood Type O POSITIVE 08/22/16 13:50 Antibody Screen NEGATIVE 08/22/16 13:50 Crossmatch See Detail 08/22/16 13:50 - Physical Exam Vitals and I&O: Vital Signs Temp 99.4 F 08/29/16 16:00 Pulse 108 08/29/16 16:00 Resp 19 08/29/16 16:00 BP 104/74 08/29/16 16:00 Pulse Ox 98 08/29/16 16:00 Intake & Output 08/28/16 08/29/16 08/29/16 18:59 06:59 18:59 Intake Total 4159 556 1926 Output Total 1 0 Balance 7577 953 2260 Intake: Intake, IV Amount 1100 100 Dextrose 5% 1,000 ml @ 75 1000 mls/hr IV .[id number] [facility] Rx#:[id number] Meropenem 1 gm In Sodium 100 100 Chloride 0.9% 100 ml @ 100 mls/hr IV Q12HR [facility] Rx#:[id number] Oral 0 900 Tube Feeding 650 780 780 Output: Stool 1 0 Other: # Voids 3 3 Stool Characteristics Soft Soft Formed Formed Active Medications: Current Medications Acetaminophen (Tylenol 650mg/20.3ml Suspension) 650 mg PO Q4H PRN PRN Reason: Fever > 101 Stop: 10/26/16 13:43 Last Admin: 08/29/16 16:29 Dose: 650 mg Docusate Sodium (Colace) 100 mg PO HS [facility] Stop: 10/21/16 20:59 Last Admin: 08/28/16 21:35 Dose: 100 mg Ferrous Sulfate (Iron) 325 mg PO TID [facility] Stop: 10/21/16 20:59 Last Admin: 08/29/16 15:17 Dose: 325 mg Dextrose (D5w) 1,000 mls @ 75 mls/hr IV .[id number] [facility] Stop: 10/23/16 14:44 Last Admin: 08/28/16 12:42 Dose: 75 mls/hr Meropenem 1 gm/ Sodium (Chloride) 100 mls @ 100 mls/hr IV Q12HR [facility] Stop: 10/25/16 08:59 Last Admin: 08/29/16 10:24 Dose: 100 mls/hr Insulin Aspart (Novolog Insulin Sliding Scale) 2 - 12 units SUBQ BID [facility] PRN Reason: Protocol Stop: 10/21/16 17:29 Last Admin: 08/29/16 16:07 Dose: Not Given Metformin HCl (Glucophage) 500 mg PO BID [facility] Stop: 10/22/16 09:59 Last Admin: 08/29/16 16:26 Dose: Not Given General: No acute distress HEENT: Atraumatic, Mucous membr. moist/pink Neck: Supple, +2 carotid pulse wo bruit Cardiovascular: Regular rate, Normal S1, Normal S2 Lungs: Other (few rhonchi) Abdomen: Bowel sounds, Soft Extremities: no Edema Neurological: Sensation intact Skin: no Rash Psych/Mental Status: Mood NL - Procedures Procedures: Procedures Procedure Code Date BLOOD TRANSFUSION SERVICE 87071 08/22/16 TRANSFUSE NONAUT RED BLOOD CELLS IN PERIPH VEIN, PERC 28487H5 08/22/16 Assessment/Plan - Problem List Patient Problems: All Active Problems Anemia (Acute) D64.9 Dehydration syndrome (Acute) E86.0 Dehydration with hypernatremia (Acute) E87.0 ELEVATED WHITE BLOOD CELL COUNT (Acute) Prerenal azotemia (Acute) R79.89 SIRS (systemic inflammatory response syndrome) (Acute) R65.10 anemia (Acute) persistant leukocytosis (Acute) rosepsis (Acute) sirs (Acute) uti (Acute) - Assessment Assessment: ALLISON Type 2 DM dehydration Ess HTN Alzh Dementia Severe Malnutrition Anemia acute on chronic P. mirabilis UTI Hypernatremia Leukocytosis etio? - Plan Plan: Lab - Result Diagrams 08/25/16 05:46 08/25/16 05:46 Current Medications Docusate Sodium (Colace) 100 mg PO HS [facility] Stop: 10/21/16 20:59 Last Admin: 08/24/16 22:35 Dose: 100 mg Ferrous Sulfate (Iron) 325 mg PO TID [facility] Stop: 10/21/16 20:59 Last Admin: 08/25/16 10:34 Dose: 325 mg Ceftriaxone Sodium 1 gm/ (Sodium Chloride) 50 mls @ 100 mls/hr IV Q24HR [facility] Stop: 10/22/16 08:59 Last Admin: 08/25/16 10:35 Dose: 100 mls/hr Dextrose (D5w) 1,000 mls @ 75 mls/hr IV .[id number] [facility] Stop: 10/23/16 14:44 Last Admin: 08/25/16 05:57 Dose: 75 mls/hr Insulin Aspart (Novolog Insulin Sliding Scale) 2 - 12 units SUBQ BID [facility] PRN Reason: Protocol Stop: 10/21/16 17:29 Last Admin: 08/25/16 11:00 Dose: 2 units Metformin HCl (Glucophage) 500 mg PO BID [facility] Stop: 10/22/16 09:59 Last Admin: 08/25/16 10:00 Dose: 500 mg kideny fnc remain stable @ 38/1.1 Na down to 133 continue ivf & gt feeding f/u electrolytes, cbc will dc ivf WBC down to 21.6 CT Scan abd/pelvis revealed abnormal soft tissue density near right hip Nutritional Asmnt/Malnutr-PDOC - Dietary Evaluation Malnutrition Findings (Please click <Entered> for more info): Nutritional Asmnt/Malnutrition Start: 08/23/16 09: 33 Text: Status: Complete Freq: Document 08/23/16 09:34 GSUN (Rec: 08/23/16 09:58 [email or web address] [email or web address]) Nutritional Asmnt/Malnutrition Patient General Information Nutritional Screening High Risk Screening Diagnosis ER: Sepsis due to UTI, DM2, HTN Pertinent Medical Hx/Surgical Hx ER: Dementia, DM, HTN Subjective Information 81 year old male from SNF, per ER notes, admitted due to acute severe, abnormal labs. Pt with eyes closed, moving hands around, appeared to be mumbling to self, did not respond to RD. Pt apepared thin overall, mild wasting to temporals. Spoke to RN, pt tolerating tube feeding well, no diarrhea noted. Current Diet Order/ Nutrition Support Diabetisource 60ml/hr x 20hrs, providing 1440kcal. Water flush 200ml qshift Pertinent Medications D5, Colace, Iron, Novolog, Glucophage Pertinent Labs 08/22: BUN 72H, creatinine 1.6H, 161H Nutritional Hx/Data Height 1.7 m Height (Calculated Centimeters) 170.2 Current Weight (lbs) 58.332 kg Weight (Calculated Kilograms) 58.3 Weight (Calculated Grams) 35125.0 [place] Body Weight 148lb Weight Status Approriate GI Symptoms Food Allergies No Cultural/Ethnic/Pentecostalism Belief [facility] order: Glucerna 1.5 at 60ml/hr x 20hrs, providing 1800kcal. Water flush 50ml/hr x 20hrs, providing 1000ml. Skin Integrity/Comment: Saul 14. Right hip pressure area. Estimated Nutritional Goals BEE in Kcals: Using Current wt Calories/Kcals/Kg CBW 58.3kg Kcals Calculated 1749-2041kcal (30-35kcal/kg) Protein: Using Current wt Protein Calculated 76-93g (1.3-1.6g/kg) Fluid: ml 1749-2041ml (1ml/kcal) Nutritional Problem 1. Problem Problem Inadequate intake from enteral /parenteral nutrition infusion related to Etiology estimated nutritional needs, hypermetabolic state aeb Signs/Symptoms: only providing to meet 82% of lower end of estimated nutritional needs. Intervention/Recommendation Comments 1. Recommend Diabetisource 65ml/hr x 24hrs, providing 1872kcal, 94g protein, 1276ml free water. Pt was receiving 1800kcal at [facility], current diet order only providing 1440kcal. 2. Recommend 120ml water flush q6hrs when IV discontinued. Expected Outcomes/Goals Expected Outcomes/Goals 1. Pt to meet 100% of estimated nutritional needs on tube feeding with tolerance.
--- NOTE | 2016-08-29 19:58 | Consultation ---
DATE OF CONSULTATION: 08/29/2016 REFERRING PHYSICIANS: Dr. Tigre Amaro and Dr. Leong. REASON FOR CONSULTATION: Persistent leukocytosis. HISTORY OF PRESENT ILLNESS: The patient is a 81-year-old male with history of dementia, diabetes, and hypertension. He was admitted on 08/22/2016 with leukocytosis and possible urosepsis, started on IV antibiotics; however, his white count remained elevated. He had a CT scan of the abdomen and pelvis today showing right thigh possible abscess. MEDICATIONS: Reviewed. SURGICAL HISTORY: Gastric tube placement. PHYSICAL EXAMINATION: GENERAL: The patient is awake, noncommunicative. VITAL SIGNS: Stable. NECK: No peripheral lymphadenopathy. CHEST: Clear. ABDOMEN: Soft and benign. Nondistended. EXTREMITIES: Wasted muscles with contracture of both lower extremities. LABORATORY DATA: White count 15.6, hemoglobin 8.1, platelets 362,000, and creatinine 1.1. Reviewing the blood count showed persistence of the elevated white count with predominance of neutrophils. ASSESSMENT: 1. 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 I will obtain Wilkinson chromosome by FISH. 2. Anemia. I will obtain workup. 3. Right hip possible abscess. The patient was seen by the surgeon and excisional debridement would be done to ____ ulcer and possible abscess. Thank you, Dr. Leong, and Dr. Amaro, for the opportunity to participate in the care of this interesting case for you. JOB# [id number]
[2016-08-29] MEDS ORDERED: D5-0.45NS 1,000 ML IV SCH (23:15)
[2016-08-30 07:07] LABS: PROTHROMBIN TIME (TEST) 10.4 SECONDS (9.5-11.5)
[2016-08-30 07:15] LABS: ANION GAP 7.2 (7.0-16.0); BUN - UREA NITROGEN 31 mg/dL (7-25); BUN/CREATININE RATIO 34.4; CALCIUM SERUM 9.3 mg/dL (8.6-10.3); CARBON DIOXIDE 23.4 mEq/L (21.0-31.0); CHLORIDE 106 mEq/L (98-107); CREATININE - SERUM 0.9 mg/dL (0.7-1.3); GLUCOSE 94 mg/dL (70-105); POTASSIUM SERUM 3.6 mEq/L (3.5-5.1); SODIUM SERUM 133 mEq/L (136-145)
[2016-08-30 07:24] LABS: HEMATOCRIT 26.7 % (39.0-49.0); HEMOGLOBIN 8.8 gm/dL (12.6-17.4); MEAN CELL VOLUME 84.3 fl (80-99); MEAN CORPUSCULAR HEMOGLOBIN 27.8 pg (27.0-31.0); MEAN PLATELET VOLUME 8.5 fl; PLATELET COUNT 431 Th/cmm (150-400); RED BLOOD COUNT 3.17 Mil/cmm (3.80-5.80)
[2016-08-30 07:40] LABS: WHITE BLOOD COUNT 16.3 Th/cmm (4.8-10.8)
[2016-08-30 07:54] LABS: BAND NEUTROPHILE 2 % (0-10); EOSINOPHIL 1 % (0-5); NEUTROPHILS 79 % (40-80); PLATELET ESTIMATE ADEQUATE (NORMAL); TOTAL CELLS COUNTED 100
[2016-08-30] MEDS: Ferrous Sulfate 325 MG TAB PO SCH ×3 (08:42→21:57)
[2016-08-30] MEDS: INSULIN ASPART SLIDING SCALE 100 UNITS/ML UNIT SUBQ SCH ×2 (08:43→17:55)
[2016-08-30] MEDS: Meropenem 1 GM in Sodium Chloride 0.9% 100 ML IV SCH (09:53)
--- NOTE | 2016-08-30 11:19 | General Progress Note ---
Subjective - Review of Systems Events since last encounter: Leukocytosis anemic possible urosepsis pt. noncommunicative Subjective: ptis somewhat confused sob still has leukocytosis 16k discussed with id Objective - Results Result Diagrams: 08/30/16 06:30 08/30/16 06:30 Recent Labs: Laboratory Last Values WBC 16.3 Th/cmm (4.8-10.8) H 08/30/16 06:30 RBC 3.17 Mil/cmm (3.80-5.80) L 08/30/16 06:30 Hgb 8.8 gm/dL (12.6-17.4) L 08/30/16 06:30 Hct 26.7 % (39.0-49.0) L D 08/30/16 06:30 MCV 84.3 fl (80-99) 08/30/16 06:30 MCH 27.8 pg (27.0-31.0) 08/30/16 06:30 MCHC Differential 33.0 pg (28.0-36.0) 08/30/16 06:30 RDW 18.0 % (11.5-20.0) 08/30/16 06:30 Plt Count 431 Th/cmm (150-400) H 08/30/16 06:30 MPV 8.5 fl 08/30/16 06:30 Neutrophils % 87.2 % (40.0-80.0) H 08/29/16 06:45 Band Neutrophils % 2 % (0-10) 08/30/16 06:30 Lymphocytes % 5.8 % (20.0-50.0) L 08/29/16 06:45 Monocytes % 5.6 % (2.0-10.0) 08/29/16 06:45 Eosinophils % 0.9 % (0.0-5.0) 08/29/16 06:45 Basophils % 0.5 % (0.0-2.0) 08/29/16 06:45 Neutrophils (Manual) 79 % (40-80) 08/30/16 06:30 Lymphocytes 10 % (20-50) L 08/30/16 06:30 Monocytes 8 % (2-10) 08/30/16 06:30 Eosinophils 1 % (0-5) 08/30/16 06:30 Basophils 0 % (0-3) 08/27/16 05:43 Nucleated RBCs 1.0 % (0-0) H 08/26/16 06:33 Platelet Estimate ADEQUATE (NORMAL) 08/30/16 06:30 Platelet Morphology (NORMAL) 08/28/16 05:10 Anisocytosis 1+ 08/26/16 06:33 RBC Morph Micro Appear NORMAL (NORMAL) 08/27/16 05:43 ESR > 140 mm/hr (0-20) H 08/22/16 13:00 Eos Smear Source URINE 08/25/16 02:50 Eos Smear Total Cells NONE SEEN (NONE SEEN) 08/25/16 02:50 PT 10.4 SECONDS (9.5-11.5) 08/30/16 06:30 INR 1.00 (0.5-1.4) 08/30/16 06:30 PTT (Actin FS) 22.1 SECONDS (26.0-38.0) L 08/30/16 06:30 Sodium 133 mEq/L (136-145) L 08/30/16 06:30 Potassium 3.6 mEq/L (3.5-5.1) 08/30/16 06:30 Chloride 106 mEq/L (98-107) 08/30/16 06:30 Carbon Dioxide 23.4 mEq/L (21.0-31.0) 08/30/16 06:30 Anion Gap 7.2 (7.0-16.0) 08/30/16 06:30 BUN 31 mg/dL (7-25) H 08/30/16 06:30 Creatinine 0.9 mg/dL (0.7-1.3) 08/30/16 06:30 Est GFR ( Amer) TNP 08/30/16 06:30 Est GFR (Non-Af Amer) TNP 08/30/16 06:30 BUN/Creatinine Ratio 34.4 08/30/16 06:30 Glucose 94 mg/dL (70-105) 08/30/16 06:30 POC Glucose 112 MG/DL (70 - 105) H 08/29/16 19:54 Whole Bld Lactic Acid 5.27 mmol/L (0.60-1.99) H* 08/22/16 15:55 Uric Acid 8.1 mg/dL (4.4-7.6) H 08/25/16 05:46 Calcium 9.3 mg/dL (8.6-10.3) 08/30/16 06:30 Phosphorus 2.3 mg/dL (2.5-5.0) L 08/25/16 05:46 Magnesium 2.0 mg/dL (1.9-2.7) 08/25/16 05:46 Total Bilirubin 0.4 mg/dL (0.3-1.0) 08/25/16 05:46 AST 32 U/L (13-39) 08/25/16 05:46 ALT 17 U/L (7-52) 08/25/16 05:46 Alkaline Phosphatase 88 U/L (34-104) 08/25/16 05:46 Creatine Kinase 191 U/L (30-223) 08/22/16 13:50 C-Reactive Protein 26.0 mg/dL (0.0-0.9) H 08/22/16 13:00 Total Protein 8.2 gm/dL (6.0-8.3) 08/25/16 05:46 Albumin 2.4 gm/dL (4.2-5.5) L 08/25/16 05:46 Globulin 5.8 gm/dL 08/25/16 05:46 Albumin/Globulin Ratio 0.4 (1.0-1.8) L 08/25/16 05:46 Urine Source CATH 08/22/16 14:50 Urine Color YELLOW 08/22/16 14:50 Urine Clarity CLOUDY (CLEAR) 08/22/16 14:50 Urine pH 8.5 08/22/16 14:50 Ur Specific [place] 1.015 (1.005-1.030) 08/22/16 14:50 Urine Protein 100 mg/dL (NEGATIVE) H 08/22/16 14:50 Urine Glucose (UA) NEGATIVE mg/dL (NEGATIVE) 08/22/16 14:50 Urine Ketones NEGATIVE mg/dL (NEGATIVE) 08/22/16 14:50 Urine Blood LARGE (NEGATIVE) H 08/22/16 14:50 Urine Nitrate NEGATIVE (NEGATIVE) 08/22/16 14:50 Urine Bilirubin NEGATIVE (NEGATIVE) 08/22/16 14:50 Urine Urobilinogen 1.0 E.U./dL (0.2 - 1.0) 08/22/16 14:50 Ur Leukocyte Esterase LARGE (NEGATIVE) H 08/22/16 14:50 Urine RBC 50-100 /hpf (0-5) H 08/22/16 14:50 Urine WBC 10-25 /hpf (0-5) H 08/22/16 14:50 Ur Epithelial Cells NONE SEEN /lpf (FEW) 08/22/16 14:50 Urine Bacteria FEW /hpf (NONE SEEN) 08/22/16 14:50 Urine Osmolality 436 mOsmol/kg 08/25/16 02:50 Ur Random Sodium 65 mmol/L 08/25/16 02:50 Urine Creatinine 33.7 mg/dl (Not Estab.) 08/25/16 02:50 Urine Microalbumin 56.2 ug/mL (Not Estab.) 08/25/16 02:50 Microalb/Creat Ratio 166.8 mg/g creat (0.0-30.0) H 08/25/16 02:50 Blood Type O POSITIVE 08/22/16 13:50 Antibody Screen NEGATIVE 08/22/16 13:50 Crossmatch See Detail 08/22/16 13:50 - Physical Exam Vitals and I&O: Vital Signs Temp 97.4 F 08/30/16 04:00 Pulse 108 08/30/16 04:00 Resp 18 08/30/16 04:00 BP 104/65 08/30/16 04:00 Pulse Ox 99 08/30/16 04:00 Intake & Output 08/29/16 08/30/16 08/30/16 18:59 06:59 18:59 Intake Total 1780 690 Output Total 0 Balance 1780 690 Intake: Intake, IV Amount 100 100 Meropenem 1 gm In Sodium 100 100 Chloride 0.9% 100 ml @ 100 mls/hr IV Q12HR [facility] Rx#:[id number] Oral 900 Tube Feeding 780 390 Other 200 Output: Stool 0 Other: # Voids 3 3 Stool Characteristics Soft Soft Formed Formed Active Medications: Current Medications Acetaminophen (Tylenol 650mg/20.3ml Suspension) 650 mg PO Q4H PRN PRN Reason: Fever > 101 Stop: 10/26/16 13:43 Last Admin: 08/29/16 16:29 Dose: 650 mg Docusate Sodium (Colace) 100 mg PO HS LISA Stop: 10/21/16 20:59 Last Admin: 08/29/16 21:42 Dose: 100 mg Ferrous Sulfate (Iron) 325 mg PO TID [facility] Stop: 10/21/16 20:59 Last Admin: 08/30/16 08:42 Dose: 325 mg Meropenem 1 gm/ Sodium (Chloride) 100 mls @ 100 mls/hr IV Q12HR [facility] Stop: 10/25/16 08:59 Last Admin: 08/30/16 09:53 Dose: 100 mls/hr Dextrose/Sodium Chloride (D5-0.45ns) 1,000 mls @ 50 mls/hr IV .Q20H [facility] Stop: 10/28/16 23:14 Last Admin: 08/30/16 01:19 Dose: 50 mls/hr Insulin Aspart (Novolog Insulin Sliding Scale) 2 - 12 units SUBQ BID LISA PRN Reason: Protocol Stop: 10/21/16 17:29 Last Admin: 08/30/16 08:43 Dose: Not Given Metformin HCl (Glucophage) 500 mg PO BID [facility] Stop: 10/22/16 09:59 Last Admin: 08/30/16 08:43 Dose: Not Given General: Alert, Oriented x3 HEENT: Atraumatic, PERRLA, EOMI Neck: Supple Cardiovascular: Regular rate, Normal S1, Normal S2 Abdomen: Bowel sounds, Soft - Procedures Procedures: Procedures Procedure Code Date BLOOD TRANSFUSION SERVICE 89541 08/22/16 TRANSFUSE NONAUT RED BLOOD CELLS IN PERIPH VEIN, PERC 31217X6 08/22/16 Assessment/Plan - Problem List Patient Problems: All Active Problems Anemia (Acute) D64.9 Dehydration syndrome (Acute) E86.0 Dehydration with hypernatremia (Acute) E87.0 ELEVATED WHITE BLOOD CELL COUNT (Acute) Prerenal azotemia (Acute) R79.89 SIRS (systemic inflammatory response syndrome) (Acute) R65.10 anemia (Acute) persistant leukocytosis (Acute) rosepsis (Acute) sirs (Acute) uti (Acute) - Plan Plan: increse fluids iv antibiotics as per ID Nutritional Asmnt/Malnutr-PDOC - Dietary Evaluation Malnutrition Findings (Please click <Entered> for more info): Nutritional Asmnt/Malnutrition Start: 08/23/16 09: 33 Text: Status: Complete Freq: Document 08/23/16 09:34 GSUN (Rec: 08/23/16 09:58 GSUN [id number]) Nutritional Asmnt/Malnutrition Patient General Information Nutritional Screening High Risk Screening Diagnosis ER: Sepsis due to UTI, DM2, HTN Pertinent Medical Hx/Surgical Hx ER: Dementia, DM, HTN Subjective Information 81 year old male from SNF, per ER notes, admitted due to acute severe, abnormal labs. Pt with eyes closed, moving hands around, appeared to be mumbling to self, did not respond to RD. Pt apepared thin overall, mild wasting to temporals. Spoke to RN, pt tolerating tube feeding well, no diarrhea noted. Current Diet Order/ Nutrition Support Diabetisource 60ml/hr x 20hrs, providing 1440kcal. Water flush 200ml qshift Pertinent Medications D5, Colace, Iron, Novolog, Glucophage Pertinent Labs 08/22: BUN 72H, creatinine 1.6H, 161H Nutritional Hx/Data Height 1.7 m Height (Calculated Centimeters) 170.2 Current Weight (lbs) 58.332 kg Weight (Calculated Kilograms) 58.3 Weight (Calculated Grams) 79356.0 [place] Body Weight 148lb Weight Status Approriate GI Symptoms Food Allergies No Cultural/Ethnic/Congregational Belief [facility] order: Glucerna 1.5 at 60ml/hr x 20hrs, providing 1800kcal. Water flush 50ml/hr x 20hrs, providing 1000ml. Skin Integrity/Comment: Saul 14. Right hip pressure area. Estimated Nutritional Goals BEE in Kcals: Using Current wt Calories/Kcals/Kg CBW 58.3kg Kcals Calculated 1749-2041kcal (30-35kcal/kg) Protein: Using Current wt Protein Calculated 76-93g (1.3-1.6g/kg) Fluid: ml 1749-2041ml (1ml/kcal) Nutritional Problem 1. Problem Problem Inadequate intake from enteral /parenteral nutrition infusion related to Etiology estimated nutritional needs, hypermetabolic state aeb Signs/Symptoms: only providing to meet 82% of lower end of estimated nutritional needs. Intervention/Recommendation Comments 1. Recommend Diabetisource 65ml/hr x 24hrs, providing 1872kcal, 94g protein, 1276ml free water. Pt was receiving 1800kcal at [facility], current diet order only providing 1440kcal. 2. Recommend 120ml water flush q6hrs when IV discontinued. Expected Outcomes/Goals Expected Outcomes/Goals 1. Pt to meet 100% of estimated nutritional needs on tube feeding with tolerance.
--- NOTE | 2016-08-30 13:37 | Infectious Disease Prog Note ---
Infectious Disease Subjective - Review of Systems Service Date: 08/30/16 Subjective: there is no new change. high ormal temperature up to 100.2 degree F. Infectious Disease Objective - Results Result Diagrams: 08/30/16 06:30 08/30/16 06:30 Recent Labs: Laboratory Last Values WBC 16.3 Th/cmm (4.8-10.8) H 08/30/16 06:30 RBC 3.17 Mil/cmm (3.80-5.80) L 08/30/16 06:30 Hgb 8.8 gm/dL (12.6-17.4) L 08/30/16 06:30 Hct 26.7 % (39.0-49.0) L D 08/30/16 06:30 MCV 84.3 fl (80-99) 08/30/16 06:30 MCH 27.8 pg (27.0-31.0) 08/30/16 06:30 MCHC Differential 33.0 pg (28.0-36.0) 08/30/16 06:30 RDW 18.0 % (11.5-20.0) 08/30/16 06:30 Plt Count 431 Th/cmm (150-400) H 08/30/16 06:30 MPV 8.5 fl 08/30/16 06:30 Neutrophils % 87.2 % (40.0-80.0) H 08/29/16 06:45 Band Neutrophils % 2 % (0-10) 08/30/16 06:30 Lymphocytes % 5.8 % (20.0-50.0) L 08/29/16 06:45 Monocytes % 5.6 % (2.0-10.0) 08/29/16 06:45 Eosinophils % 0.9 % (0.0-5.0) 08/29/16 06:45 Basophils % 0.5 % (0.0-2.0) 08/29/16 06:45 Neutrophils (Manual) 79 % (40-80) 08/30/16 06:30 Lymphocytes 10 % (20-50) L 08/30/16 06:30 Monocytes 8 % (2-10) 08/30/16 06:30 Eosinophils 1 % (0-5) 08/30/16 06:30 Basophils 0 % (0-3) 08/27/16 05:43 Nucleated RBCs 1.0 % (0-0) H 08/26/16 06:33 Platelet Estimate ADEQUATE (NORMAL) 08/30/16 06:30 Platelet Morphology (NORMAL) 08/28/16 05:10 Anisocytosis 1+ 08/26/16 06:33 RBC Morph Micro Appear NORMAL (NORMAL) 08/27/16 05:43 ESR > 140 mm/hr (0-20) H 08/22/16 13:00 Eos Smear Source URINE 08/25/16 02:50 Eos Smear Total Cells NONE SEEN (NONE SEEN) 08/25/16 02:50 PT 10.4 SECONDS (9.5-11.5) 08/30/16 06:30 INR 1.00 (0.5-1.4) 08/30/16 06:30 PTT (Actin FS) 22.1 SECONDS (26.0-38.0) L 08/30/16 06:30 Sodium 133 mEq/L (136-145) L 08/30/16 06:30 Potassium 3.6 mEq/L (3.5-5.1) 08/30/16 06:30 Chloride 106 mEq/L (98-107) 08/30/16 06:30 Carbon Dioxide 23.4 mEq/L (21.0-31.0) 08/30/16 06:30 Anion Gap 7.2 (7.0-16.0) 08/30/16 06:30 BUN 31 mg/dL (7-25) H 08/30/16 06:30 Creatinine 0.9 mg/dL (0.7-1.3) 08/30/16 06:30 Est GFR ( Amer) TNP 08/30/16 06:30 Est GFR (Non-Af Amer) TNP 08/30/16 06:30 BUN/Creatinine Ratio 34.4 08/30/16 06:30 Glucose 94 mg/dL (70-105) 08/30/16 06:30 POC Glucose 112 MG/DL (70 - 105) H 08/30/16 12:53 Whole Bld Lactic Acid 5.27 mmol/L (0.60-1.99) H* 08/22/16 15:55 Uric Acid 8.1 mg/dL (4.4-7.6) H 08/25/16 05:46 Calcium 9.3 mg/dL (8.6-10.3) 08/30/16 06:30 Phosphorus 2.3 mg/dL (2.5-5.0) L 08/25/16 05:46 Magnesium 2.0 mg/dL (1.9-2.7) 08/25/16 05:46 Total Bilirubin 0.4 mg/dL (0.3-1.0) 08/25/16 05:46 AST 32 U/L (13-39) 08/25/16 05:46 ALT 17 U/L (7-52) 08/25/16 05:46 Alkaline Phosphatase 88 U/L (34-104) 08/25/16 05:46 Creatine Kinase 191 U/L (30-223) 08/22/16 13:50 C-Reactive Protein 26.0 mg/dL (0.0-0.9) H 08/22/16 13:00 Total Protein 8.2 gm/dL (6.0-8.3) 08/25/16 05:46 Albumin 2.4 gm/dL (4.2-5.5) L 08/25/16 05:46 Globulin 5.8 gm/dL 08/25/16 05:46 Albumin/Globulin Ratio 0.4 (1.0-1.8) L 08/25/16 05:46 Urine Source CATH 08/22/16 14:50 Urine Color YELLOW 08/22/16 14:50 Urine Clarity CLOUDY (CLEAR) 08/22/16 14:50 Urine pH 8.5 08/22/16 14:50 Ur Specific [place] 1.015 (1.005-1.030) 08/22/16 14:50 Urine Protein 100 mg/dL (NEGATIVE) H 08/22/16 14:50 Urine Glucose (UA) NEGATIVE mg/dL (NEGATIVE) 08/22/16 14:50 Urine Ketones NEGATIVE mg/dL (NEGATIVE) 08/22/16 14:50 Urine Blood LARGE (NEGATIVE) H 08/22/16 14:50 Urine Nitrate NEGATIVE (NEGATIVE) 08/22/16 14:50 Urine Bilirubin NEGATIVE (NEGATIVE) 08/22/16 14:50 Urine Urobilinogen 1.0 E.U./dL (0.2 - 1.0) 08/22/16 14:50 Ur Leukocyte Esterase LARGE (NEGATIVE) H 08/22/16 14:50 Urine RBC 50-100 /hpf (0-5) H 08/22/16 14:50 Urine WBC 10-25 /hpf (0-5) H 08/22/16 14:50 Ur Epithelial Cells NONE SEEN /lpf (FEW) 08/22/16 14:50 Urine Bacteria FEW /hpf (NONE SEEN) 08/22/16 14:50 Urine Osmolality 436 mOsmol/kg 08/25/16 02:50 Ur Random Sodium 65 mmol/L 08/25/16 02:50 Urine Creatinine 33.7 mg/dl (Not Estab.) 08/25/16 02:50 Urine Microalbumin 56.2 ug/mL (Not Estab.) 08/25/16 02:50 Microalb/Creat Ratio 166.8 mg/g creat (0.0-30.0) H 08/25/16 02:50 Blood Type O POSITIVE 08/22/16 13:50 Antibody Screen NEGATIVE 08/22/16 13:50 Crossmatch See Detail 08/22/16 13:50 - Physical Exam Vitals and I&O: Vital Signs Temp 97.4 F 08/30/16 04:00 Pulse 108 08/30/16 04:00 Resp 18 08/30/16 04:00 BP 104/65 08/30/16 04:00 Pulse Ox 99 08/30/16 04:00 Intake & Output 08/29/16 08/30/16 08/30/16 18:59 06:59 18:59 Intake Total 1780 690 Output Total 0 Balance 1780 690 Intake: Intake, IV Amount 100 100 Meropenem 1 gm In Sodium 100 100 Chloride 0.9% 100 ml @ 100 mls/hr IV Q12HR [facility] Rx#:[id number] Oral 900 Tube Feeding 780 390 Other 200 Output: Stool 0 Other: # Voids 3 3 Stool Characteristics Soft Soft Formed Formed Active Medications: Current Medications Acetaminophen (Tylenol 650mg/20.3ml Suspension) 650 mg PO Q4H PRN PRN Reason: Fever > 101 Stop: 10/26/16 13:43 Last Admin: 08/29/16 16:29 Dose: 650 mg Docusate Sodium (Colace) 100 mg PO HS LISA Stop: 10/21/16 20:59 Last Admin: 08/29/16 21:42 Dose: 100 mg Ferrous Sulfate (Iron) 325 mg PO TID LISA Stop: 10/21/16 20:59 Last Admin: 08/30/16 08:42 Dose: 325 mg Meropenem 1 gm/ Sodium (Chloride) 100 mls @ 100 mls/hr IV Q12HR [facility] Stop: 10/25/16 08:59 Last Admin: 08/30/16 09:53 Dose: 100 mls/hr Dextrose/Sodium Chloride (D5-0.45ns) 1,000 mls @ 50 mls/hr IV .Q20H [facility] Stop: 10/28/16 23:14 Last Admin: 08/30/16 01:19 Dose: 50 mls/hr Insulin Aspart (Novolog Insulin Sliding Scale) 2 - 12 units SUBQ BID LISA PRN Reason: Protocol Stop: 10/21/16 17:29 Last Admin: 08/30/16 08:43 Dose: Not Given Metformin HCl (Glucophage) 500 mg PO BID [facility] Stop: 10/22/16 09:59 Last Admin: 08/30/16 08:43 Dose: Not Given General: no acute distress, well developed, well nourished HEENT: atraumatic, normocephalic, PERRLA, EOMI, moist mucous membrane Neck: supple Cardiovascular: S1S2, regular Lungs: clear to auscultation bilaterally, clear to percussion Abdomen: soft, no tender, no distended Extremities: no cyanosis, no clubbing, no edema Neurological: awake Skin: other (bilateral small gluteal wounds.) - Procedures Procedures: Procedures Procedure Code Date BLOOD TRANSFUSION SERVICE 83397 08/22/16 TRANSFUSE NONAUT RED BLOOD CELLS IN PERIPH VEIN, [facility] [id number] 08/22/16 Infectious Disease Assmt/Plan - Problem List Patient Problems: All Active Problems Anemia (Acute) D64.9 Dehydration syndrome (Acute) E86.0 Dehydration with hypernatremia (Acute) E87.0 ELEVATED WHITE BLOOD CELL COUNT (Acute) Prerenal azotemia (Acute) R79.89 SIRS (systemic inflammatory response syndrome) (Acute) R65.10 anemia (Acute) persistant leukocytosis (Acute) rosepsis (Acute) sirs (Acute) uti (Acute) - Assessment Assessment: Impression: 1. UTI. 2. Leukocytosis improving. 3. Dementia. 4. R/o abscess or phlegmon in right hip soft tissue. 5. Sepsis. 6. superficial wounds both hips. Recommendations: Change antibiotics to zosyn. Nutritional Asmnt/Malnutr-PDOC - Dietary Evaluation Malnutrition Findings (Please click <Entered> for more info): Nutritional Asmnt/Malnutrition Start: 08/23/16 09: 33 Text: Status: Complete Freq: Document 08/23/16 09:34 TRACEY (Rec: 08/23/16 09:58 [id number] [id number]) Nutritional Asmnt/Malnutrition Patient General Information Nutritional Screening High Risk Screening Diagnosis ER: Sepsis due to UTI, DM2, HTN Pertinent Medical Hx/Surgical Hx ER: Dementia, DM, HTN Subjective Information 81 year old male from SNF, per ER notes, admitted due to acute severe, abnormal labs. Pt with eyes closed, moving hands around, appeared to be mumbling to self, did not respond to RD. Pt apepared thin overall, mild wasting to temporals. Spoke to RN, pt tolerating tube feeding well, no diarrhea noted. Current Diet Order/ Nutrition Support Diabetisource 60ml/hr x 20hrs, providing 1440kcal. Water flush 200ml qshift Pertinent Medications D5, Colace, Iron, Novolog, Glucophage Pertinent Labs 08/22: BUN 72H, creatinine 1.6H, 161H Nutritional Hx/Data Height 1.7 m Height (Calculated Centimeters) 170.2 Current Weight (lbs) 58.332 kg Weight (Calculated Kilograms) 58.3 Weight (Calculated Grams) 73827.0 [place] Body Weight 148lb Weight Status Approriate GI Symptoms Food Allergies No Cultural/Ethnic/Congregation Belief SNF order: Glucerna 1.5 at 60ml/hr x 20hrs, providing 1800kcal. Water flush 50ml/hr x 20hrs, providing 1000ml. Skin Integrity/Comment: Saul 14. Right hip pressure area. Estimated Nutritional Goals BEE in Kcals: Using Current wt Calories/Kcals/Kg CBW 58.3kg Kcals Calculated 1749-2041kcal (30-35kcal/kg) Protein: Using Current wt Protein Calculated 76-93g (1.3-1.6g/kg) Fluid: ml 1749-2041ml (1ml/kcal) Nutritional Problem 1. Problem Problem Inadequate intake from enteral /parenteral nutrition infusion related to Etiology estimated nutritional needs, hypermetabolic state aeb Signs/Symptoms: only providing to meet 82% of lower end of estimated nutritional needs. Intervention/Recommendation Comments 1. Recommend Diabetisource 65ml/hr x 24hrs, providing 1872kcal, 94g protein, 1276ml free water. Pt was receiving 1800kcal at [facility], current diet order only providing 1440kcal. 2. Recommend 120ml water flush q6hrs when IV discontinued. Expected Outcomes/Goals Expected Outcomes/Goals 1. Pt to meet 100% of estimated nutritional needs on tube feeding with tolerance.
--- NOTE | 2016-08-30 13:49 | General Progress Note ---
Subjective - Review of Systems Service Date: 08/30/16 Subjective: sleeping, nonverbal, comfortable Objective - Results Result Diagrams: 08/30/16 06:30 08/30/16 06:30 Recent Labs: Laboratory Last Values WBC 16.3 Th/cmm (4.8-10.8) H 08/30/16 06:30 RBC 3.17 Mil/cmm (3.80-5.80) L 08/30/16 06:30 Hgb 8.8 gm/dL (12.6-17.4) L 08/30/16 06:30 Hct 26.7 % (39.0-49.0) L D 08/30/16 06:30 MCV 84.3 fl (80-99) 08/30/16 06:30 MCH 27.8 pg (27.0-31.0) 08/30/16 06:30 MCHC Differential 33.0 pg (28.0-36.0) 08/30/16 06:30 RDW 18.0 % (11.5-20.0) 08/30/16 06:30 Plt Count 431 Th/cmm (150-400) H 08/30/16 06:30 MPV 8.5 fl 08/30/16 06:30 Neutrophils % 87.2 % (40.0-80.0) H 08/29/16 06:45 Band Neutrophils % 2 % (0-10) 08/30/16 06:30 Lymphocytes % 5.8 % (20.0-50.0) L 08/29/16 06:45 Monocytes % 5.6 % (2.0-10.0) 08/29/16 06:45 Eosinophils % 0.9 % (0.0-5.0) 08/29/16 06:45 Basophils % 0.5 % (0.0-2.0) 08/29/16 06:45 Neutrophils (Manual) 79 % (40-80) 08/30/16 06:30 Lymphocytes 10 % (20-50) L 08/30/16 06:30 Monocytes 8 % (2-10) 08/30/16 06:30 Eosinophils 1 % (0-5) 08/30/16 06:30 Basophils 0 % (0-3) 08/27/16 05:43 Nucleated RBCs 1.0 % (0-0) H 08/26/16 06:33 Platelet Estimate ADEQUATE (NORMAL) 08/30/16 06:30 Platelet Morphology (NORMAL) 08/28/16 05:10 Anisocytosis 1+ 08/26/16 06:33 RBC Morph Micro Appear NORMAL (NORMAL) 08/27/16 05:43 Smear Path Review SEE BELOW 08/30/16 06:30 ESR > 140 mm/hr (0-20) H 08/22/16 13:00 Eos Smear Source URINE 08/25/16 02:50 Eos Smear Total Cells NONE SEEN (NONE SEEN) 08/25/16 02:50 PT 10.4 SECONDS (9.5-11.5) 08/30/16 06:30 INR 1.00 (0.5-1.4) 08/30/16 06:30 PTT (Actin FS) 22.1 SECONDS (26.0-38.0) L 08/30/16 06:30 Sodium 133 mEq/L (136-145) L 08/30/16 06:30 Potassium 3.6 mEq/L (3.5-5.1) 08/30/16 06:30 Chloride 106 mEq/L (98-107) 08/30/16 06:30 Carbon Dioxide 23.4 mEq/L (21.0-31.0) 08/30/16 06:30 Anion Gap 7.2 (7.0-16.0) 08/30/16 06:30 BUN 31 mg/dL (7-25) H 08/30/16 06:30 Creatinine 0.9 mg/dL (0.7-1.3) 08/30/16 06:30 Est GFR ( Amer) TNP 08/30/16 06:30 Est GFR (Non-Af Amer) TNP 08/30/16 06:30 BUN/Creatinine Ratio 34.4 08/30/16 06:30 Glucose 94 mg/dL (70-105) 08/30/16 06:30 POC Glucose 112 MG/DL (70 - 105) H 08/30/16 12:53 Whole Bld Lactic Acid 5.27 mmol/L (0.60-1.99) H* 08/22/16 15:55 Uric Acid 8.1 mg/dL (4.4-7.6) H 08/25/16 05:46 Calcium 9.3 mg/dL (8.6-10.3) 08/30/16 06:30 Phosphorus 2.3 mg/dL (2.5-5.0) L 08/25/16 05:46 Magnesium 2.0 mg/dL (1.9-2.7) 08/25/16 05:46 Total Bilirubin 0.4 mg/dL (0.3-1.0) 08/25/16 05:46 AST 32 U/L (13-39) 08/25/16 05:46 ALT 17 U/L (7-52) 08/25/16 05:46 Alkaline Phosphatase 88 U/L (34-104) 08/25/16 05:46 Creatine Kinase 191 U/L (30-223) 08/22/16 13:50 C-Reactive Protein 26.0 mg/dL (0.0-0.9) H 08/22/16 13:00 Total Protein 8.2 gm/dL (6.0-8.3) 08/25/16 05:46 Albumin 2.4 gm/dL (4.2-5.5) L 08/25/16 05:46 Globulin 5.8 gm/dL 08/25/16 05:46 Albumin/Globulin Ratio 0.4 (1.0-1.8) L 08/25/16 05:46 Urine Source CATH 08/22/16 14:50 Urine Color YELLOW 08/22/16 14:50 Urine Clarity CLOUDY (CLEAR) 08/22/16 14:50 Urine pH 8.5 08/22/16 14:50 Ur Specific [place] 1.015 (1.005-1.030) 08/22/16 14:50 Urine Protein 100 mg/dL (NEGATIVE) H 08/22/16 14:50 Urine Glucose (UA) NEGATIVE mg/dL (NEGATIVE) 08/22/16 14:50 Urine Ketones NEGATIVE mg/dL (NEGATIVE) 08/22/16 14:50 Urine Blood LARGE (NEGATIVE) H 08/22/16 14:50 Urine Nitrate NEGATIVE (NEGATIVE) 08/22/16 14:50 Urine Bilirubin NEGATIVE (NEGATIVE) 08/22/16 14:50 Urine Urobilinogen 1.0 E.U./dL (0.2 - 1.0) 08/22/16 14:50 Ur Leukocyte Esterase LARGE (NEGATIVE) H 08/22/16 14:50 Urine RBC 50-100 /hpf (0-5) H 08/22/16 14:50 Urine WBC 10-25 /hpf (0-5) H 08/22/16 14:50 Ur Epithelial Cells NONE SEEN /lpf (FEW) 08/22/16 14:50 Urine Bacteria FEW /hpf (NONE SEEN) 08/22/16 14:50 Urine Osmolality 436 mOsmol/kg 08/25/16 02:50 Ur Random Sodium 65 mmol/L 08/25/16 02:50 Urine Creatinine 33.7 mg/dl (Not Estab.) 08/25/16 02:50 Urine Microalbumin 56.2 ug/mL (Not Estab.) 08/25/16 02:50 Microalb/Creat Ratio 166.8 mg/g creat (0.0-30.0) H 08/25/16 02:50 Blood Type O POSITIVE 08/22/16 13:50 Antibody Screen NEGATIVE 08/22/16 13:50 Crossmatch See Detail 08/22/16 13:50 - Physical Exam Vitals and I&O: Vital Signs Temp 97.4 F 08/30/16 04:00 Pulse 108 08/30/16 04:00 Resp 18 08/30/16 04:00 BP 104/65 08/30/16 04:00 Pulse Ox 99 08/30/16 04:00 Intake & Output 08/29/16 08/30/16 08/30/16 18:59 06:59 18:59 Intake Total 1780 690 Output Total 0 Balance 1780 690 Intake: Intake, IV Amount 100 100 Meropenem 1 gm In Sodium 100 100 Chloride 0.9% 100 ml @ 100 mls/hr IV Q12HR [facility] Rx#:[id number] Oral 900 Tube Feeding 780 390 Other 200 Output: Stool 0 Other: # Voids 3 3 Stool Characteristics Soft Soft Formed Formed Active Medications: Current Medications Acetaminophen (Tylenol 650mg/20.3ml Suspension) 650 mg PO Q4H PRN PRN Reason: Fever > 101 Stop: 10/26/16 13:43 Last Admin: 08/29/16 16:29 Dose: 650 mg Docusate Sodium (Colace) 100 mg PO HS LISA Stop: 10/21/16 20:59 Last Admin: 08/29/16 21:42 Dose: 100 mg Ferrous Sulfate (Iron) 325 mg PO TID [facility] Stop: 10/21/16 20:59 Last Admin: 08/30/16 08:42 Dose: 325 mg Dextrose/Sodium Chloride (D5-0.45ns) 1,000 mls @ 50 mls/hr IV .Q20H [facility] Stop: 10/28/16 23:14 Last Admin: 08/30/16 01:19 Dose: 50 mls/hr Piperacillin Sod/Tazobactam (Sod 4.5 gm/ Sodium Chloride) 100 mls @ 100 mls/hr IV Q8HR [facility] Stop: 10/29/16 20:59 Insulin Aspart (Novolog Insulin Sliding Scale) 2 - 12 units SUBQ BID [facility] PRN Reason: Protocol Stop: 10/21/16 17:29 Last Admin: 08/30/16 08:43 Dose: Not Given Metformin HCl (Glucophage) 500 mg PO BID [facility] Stop: 10/22/16 09:59 Last Admin: 08/30/16 08:43 Dose: Not Given General: No acute distress HEENT: Atraumatic, Mucous membr. moist/pink Neck: Supple, +2 carotid pulse wo bruit Cardiovascular: Regular rate, Normal S1, Normal S2 Lungs: Other (decrease BS) Abdomen: Bowel sounds, Soft Extremities: no Edema Neurological: Sensation intact Skin: no Rash Psych/Mental Status: Mood NL - Procedures Procedures: Procedures Procedure Code Date BLOOD TRANSFUSION SERVICE 17528 08/22/16 TRANSFUSE NONAUT RED BLOOD CELLS IN PERIPH VEIN, [facility] [id number] 08/22/16 Assessment/Plan - Problem List Patient Problems: All Active Problems Anemia (Acute) D64.9 Dehydration syndrome (Acute) E86.0 Dehydration with hypernatremia (Acute) E87.0 ELEVATED WHITE BLOOD CELL COUNT (Acute) Prerenal azotemia (Acute) R79.89 SIRS (systemic inflammatory response syndrome) (Acute) R65.10 anemia (Acute) persistant leukocytosis (Acute) rosepsis (Acute) sirs (Acute) uti (Acute) - Assessment Assessment: ALLISON Type 2 DM dehydration Ess HTN Alzh Dementia Severe Malnutrition Anemia acute on chronic P. mirabilis UTI Leukocytosis etio? - Plan Plan: Lab - Result Diagrams 08/25/16 05:46 08/25/16 05:46 Current Medications Docusate Sodium (Colace) 100 mg PO HS LISA Stop: 10/21/16 20:59 Last Admin: 08/24/16 22:35 Dose: 100 mg Ferrous Sulfate (Iron) 325 mg PO TID [facility] Stop: 10/21/16 20:59 Last Admin: 08/25/16 10:34 Dose: 325 mg Ceftriaxone Sodium 1 gm/ (Sodium Chloride) 50 mls @ 100 mls/hr IV Q24HR [facility] Stop: 10/22/16 08:59 Last Admin: 08/25/16 10:35 Dose: 100 mls/hr Dextrose (D5w) 1,000 mls @ 75 mls/hr IV .[id number] [facility] Stop: 10/23/16 14:44 Last Admin: 08/25/16 05:57 Dose: 75 mls/hr Insulin Aspart (Novolog Insulin Sliding Scale) 2 - 12 units SUBQ BID [facility] PRN Reason: Protocol Stop: 10/21/16 17:29 Last Admin: 08/25/16 11:00 Dose: 2 units Metformin HCl (Glucophage) 500 mg PO BID [facility] Stop: 10/22/16 09:59 Last Admin: 08/25/16 10:00 Dose: 500 mg kideny fnc remain stable @ 31/1.1 Na down to 133 continue gt feeding f/u electrolytes, cbc will dc ivf due to progressive drop in Na WBC down to 16.3 CT Scan abd/pelvis revealed abnormal soft tissue density near right hip Nutritional Asmnt/Malnutr-PDOC - Dietary Evaluation Malnutrition Findings (Please click <Entered> for more info): Nutritional Asmnt/Malnutrition Start: 08/23/16 09: 33 Text: Status: Complete Freq: Document 08/23/16 09:34 GSUN (Rec: 08/23/16 09:58 [email or web address]) Nutritional Asmnt/Malnutrition Patient General Information Nutritional Screening High Risk Screening Diagnosis ER: Sepsis due to UTI, DM2, HTN Pertinent Medical Hx/Surgical Hx ER: Dementia, DM, HTN Subjective Information 81 year old male from SNF, per ER notes, admitted due to acute severe, abnormal labs. Pt with eyes closed, moving hands around, appeared to be mumbling to self, did not respond to RD. Pt apepared thin overall, mild wasting to temporals. Spoke to RN, pt tolerating tube feeding well, no diarrhea noted. Current Diet Order/ Nutrition Support Diabetisource 60ml/hr x 20hrs, providing 1440kcal. Water flush 200ml qshift Pertinent Medications D5, Colace, Iron, Novolog, Glucophage Pertinent Labs 08/22: BUN 72H, creatinine 1.6H, 161H Nutritional Hx/Data Height 1.7 m Height (Calculated Centimeters) 170.2 Current Weight (lbs) 58.332 kg Weight (Calculated Kilograms) 58.3 Weight (Calculated Grams) 95458.0 [place] Body Weight 148lb Weight Status Approriate GI Symptoms Food Allergies No Cultural/Ethnic/Church Belief SNF order: Glucerna 1.5 at 60ml/hr x 20hrs, providing 1800kcal. Water flush 50ml/hr x 20hrs, providing 1000ml. Skin Integrity/Comment: Saul 14. Right hip pressure area. Estimated Nutritional Goals BEE in Kcals: Using Current wt Calories/Kcals/Kg CBW 58.3kg Kcals Calculated 1749-2041kcal (30-35kcal/kg) Protein: Using Current wt Protein Calculated 76-93g (1.3-1.6g/kg) Fluid: ml 1749-2041ml (1ml/kcal) Nutritional Problem 1. Problem Problem Inadequate intake from enteral /parenteral nutrition infusion related to Etiology estimated nutritional needs, hypermetabolic state aeb Signs/Symptoms: only providing to meet 82% of lower end of estimated nutritional needs. Intervention/Recommendation Comments 1. Recommend Diabetisource 65ml/hr x 24hrs, providing 1872kcal, 94g protein, 1276ml free water. Pt was receiving 1800kcal at [facility], current diet order only providing 1440kcal. 2. Recommend 120ml water flush q6hrs when IV discontinued. Expected Outcomes/Goals Expected Outcomes/Goals 1. Pt to meet 100% of estimated nutritional needs on tube feeding with tolerance.
[2016-08-31 06:54] LABS: % BASOPHILS 0.6 % (0.0-2.0); % LYMPHOCYTES 5.2 % (20.0-50.0); % MONOCYTES 7.5 % (2.0-10.0); % NEUTROPHILS 85.7 % (40.0-80.0); MEAN CELL VOLUME 83.3 fl (80-99); MEAN CORPUSCULAR HEMOGLOBIN 27.2 pg (27.0-31.0); MEAN CORPUSCULAR HGB CONC 32.7 pg (28.0-36.0); MEAN PLATELET VOLUME 7.8 fl; NEUTROPHILE ABSOLUTE 12.1 Th/cmm (1.8-8.0); PLATELET COUNT 465 Th/cmm (150-400); RED BLOOD COUNT 2.82 Mil/cmm (3.80-5.80); RED CELL DISTRIBUTION WIDTH 18.2 % (11.5-20.0)
[2016-08-31 07:03] LABS: BUN - UREA NITROGEN 24 mg/dL (7-25); CALCIUM SERUM 8.9 mg/dL (8.6-10.3); CARBON DIOXIDE 25.8 mEq/L (21.0-31.0); CHLORIDE 112 mEq/L (98-107); GLUCOSE 109 mg/dL (70-105); POTASSIUM SERUM 3.8 mEq/L (3.5-5.1); SODIUM SERUM 140 mEq/L (136-145)
[2016-08-31] MEDS ORDERED: Midazolam 1mg/ml 2 ml vial IV ONE (07:40)
[2016-08-31 08:03] LABS: WHITE BLOOD COUNT 14.1 Th/cmm (4.8-10.8)
[2016-08-31 08:04] LABS: HEMATOCRIT 23.5 % (39.0-49.0); HEMOGLOBIN 7.7 gm/dL (12.6-17.4)
--- NOTE | 2016-08-31 08:18 | General Progress Note ---
Subjective - Review of Systems Service Date: 08/31/16 Events since last encounter: excisional debridement under monitored anesthesia done right hip ulcer stage 2 left hip ulcer stage 3 sacral ulcer stage 2 local wound care ordered Objective - Results Result Diagrams: 08/31/16 06:20 08/31/16 06:20 Recent Labs: Laboratory Last Values WBC 14.1 Th/cmm (4.8-10.8) H 08/31/16 06:20 RBC 2.82 Mil/cmm (3.80-5.80) L 08/31/16 06:20 Hgb 7.7 gm/dL (12.6-17.4) L* D 08/31/16 06:20 Hct 23.5 % (39.0-49.0) L* D 08/31/16 06:20 MCV 83.3 fl (80-99) 08/31/16 06:20 MCH 27.2 pg (27.0-31.0) 08/31/16 06:20 MCHC Differential 32.7 pg (28.0-36.0) 08/31/16 06:20 RDW 18.2 % (11.5-20.0) 08/31/16 06:20 Plt Count 465 Th/cmm (150-400) H 08/31/16 06:20 MPV 7.8 fl 08/31/16 06:20 Neutrophils % 85.7 % (40.0-80.0) H 08/31/16 06:20 Band Neutrophils % 2 % (0-10) 08/30/16 06:30 Lymphocytes % 5.2 % (20.0-50.0) L 08/31/16 06:20 Monocytes % 7.5 % (2.0-10.0) 08/31/16 06:20 Eosinophils % 1.0 % (0.0-5.0) 08/31/16 06:20 Basophils % 0.6 % (0.0-2.0) 08/31/16 06:20 Neutrophils (Manual) 79 % (40-80) 08/30/16 06:30 Lymphocytes 10 % (20-50) L 08/30/16 06:30 Monocytes 8 % (2-10) 08/30/16 06:30 Eosinophils 1 % (0-5) 08/30/16 06:30 Basophils 0 % (0-3) 08/27/16 05:43 Nucleated RBCs 1.0 % (0-0) H 08/26/16 06:33 Platelet Estimate ADEQUATE (NORMAL) 08/30/16 06:30 Platelet Morphology (NORMAL) 08/28/16 05:10 Anisocytosis 1+ 08/26/16 06:33 RBC Morph Micro Appear NORMAL (NORMAL) 08/27/16 05:43 Smear Path Review SEE BELOW 08/30/16 06:30 ESR > 140 mm/hr (0-20) H 08/22/16 13:00 Eos Smear Source URINE 08/25/16 02:50 Eos Smear Total Cells NONE SEEN (NONE SEEN) 08/25/16 02:50 PT 10.4 SECONDS (9.5-11.5) 08/30/16 06:30 INR 1.00 (0.5-1.4) 08/30/16 06:30 PTT (Actin FS) 22.1 SECONDS (26.0-38.0) L 08/30/16 06:30 Sodium 140 mEq/L (136-145) 08/31/16 06:20 Potassium 3.8 mEq/L (3.5-5.1) 08/31/16 06:20 Chloride 112 mEq/L (98-107) H 08/31/16 06:20 Carbon Dioxide 25.8 mEq/L (21.0-31.0) 08/31/16 06:20 Anion Gap 6.0 (7.0-16.0) L 08/31/16 06:20 BUN 24 mg/dL (7-25) 08/31/16 06:20 Creatinine 1.0 mg/dL (0.7-1.3) 08/31/16 06:20 Est GFR ( Amer) TNP 08/31/16 06:20 Est GFR (Non-Af Amer) TNP 08/31/16 06:20 BUN/Creatinine Ratio 24.0 08/31/16 06:20 Glucose 109 mg/dL (70-105) H 08/31/16 06:20 POC Glucose 104 MG/DL (70 - 105) 08/31/16 07:02 Whole Bld Lactic Acid 5.27 mmol/L (0.60-1.99) H* 08/22/16 15:55 Uric Acid 8.1 mg/dL (4.4-7.6) H 08/25/16 05:46 Calcium 8.9 mg/dL (8.6-10.3) 08/31/16 06:20 Phosphorus 2.3 mg/dL (2.5-5.0) L 08/25/16 05:46 Magnesium 2.0 mg/dL (1.9-2.7) 08/25/16 05:46 Total Bilirubin 0.4 mg/dL (0.3-1.0) 08/25/16 05:46 AST 32 U/L (13-39) 08/25/16 05:46 ALT 17 U/L (7-52) 08/25/16 05:46 Alkaline Phosphatase 88 U/L (34-104) 08/25/16 05:46 Creatine Kinase 191 U/L (30-223) 08/22/16 13:50 C-Reactive Protein 26.0 mg/dL (0.0-0.9) H 08/22/16 13:00 Total Protein 8.2 gm/dL (6.0-8.3) 08/25/16 05:46 Albumin 2.4 gm/dL (4.2-5.5) L 08/25/16 05:46 Globulin 5.8 gm/dL 08/25/16 05:46 Albumin/Globulin Ratio 0.4 (1.0-1.8) L 08/25/16 05:46 Urine Source CATH 08/22/16 14:50 Urine Color YELLOW 08/22/16 14:50 Urine Clarity CLOUDY (CLEAR) 08/22/16 14:50 Urine pH 8.5 08/22/16 14:50 Ur Specific [place] 1.015 (1.005-1.030) 08/22/16 14:50 Urine Protein 100 mg/dL (NEGATIVE) H 08/22/16 14:50 Urine Glucose (UA) NEGATIVE mg/dL (NEGATIVE) 08/22/16 14:50 Urine Ketones NEGATIVE mg/dL (NEGATIVE) 08/22/16 14:50 Urine Blood LARGE (NEGATIVE) H 08/22/16 14:50 Urine Nitrate NEGATIVE (NEGATIVE) 08/22/16 14:50 Urine Bilirubin NEGATIVE (NEGATIVE) 08/22/16 14:50 Urine Urobilinogen 1.0 E.U./dL (0.2 - 1.0) 08/22/16 14:50 Ur Leukocyte Esterase LARGE (NEGATIVE) H 08/22/16 14:50 Urine RBC 50-100 /hpf (0-5) H 08/22/16 14:50 Urine WBC 10-25 /hpf (0-5) H 08/22/16 14:50 Ur Epithelial Cells NONE SEEN /lpf (FEW) 08/22/16 14:50 Urine Bacteria FEW /hpf (NONE SEEN) 08/22/16 14:50 Urine Osmolality 436 mOsmol/kg 08/25/16 02:50 Ur Random Sodium 65 mmol/L 08/25/16 02:50 Urine Creatinine 33.7 mg/dl (Not Estab.) 08/25/16 02:50 Urine Microalbumin 56.2 ug/mL (Not Estab.) 08/25/16 02:50 Microalb/Creat Ratio 166.8 mg/g creat (0.0-30.0) H 08/25/16 02:50 Blood Type O POSITIVE 08/22/16 13:50 Antibody Screen NEGATIVE 08/22/16 13:50 Crossmatch See Detail 08/22/16 13:50 - Physical Exam Vitals and I&O: Vital Signs Temp 99.4 F 08/31/16 03:00 Pulse 109 08/31/16 03:00 Resp 18 08/31/16 03:00 BP 106/72 08/31/16 03:00 Pulse Ox 96 08/31/16 03:00 Intake & Output 08/30/16 08/31/16 08/31/16 18:59 06:59 18:59 Intake Total 100 100 Balance 100 100 Intake: Intake, IV Amount 100 100 Piperacillin Sodium/ 100 100 Tazobact 4.5 gm In Sodium Chloride 0.9% 100 ml @ 100 mls/hr IV Q8HR [facility] Rx #:[id number] Other: # Voids 4 # Bowel Movements 0 Stool Characteristics Soft Formed Active Medications: Current Medications Acetaminophen (Tylenol 650mg/20.3ml Suspension) 650 mg PO Q4H PRN PRN Reason: Fever > 101 Stop: 10/26/16 13:43 Last Admin: 08/29/16 16:29 Dose: 650 mg Docusate Sodium (Colace) 100 mg PO [facility] Stop: 10/21/16 20:59 Last Admin: 08/30/16 21:58 Dose: 100 mg Ferrous Sulfate (Iron) 325 mg PO TID [facility] Stop: 10/21/16 20:59 Last Admin: 08/30/16 21:57 Dose: 325 mg Piperacillin Sod/Tazobactam (Sod 4.5 gm/ Sodium Chloride) 100 mls @ 100 mls/hr IV Q8HR [facility] Stop: 10/29/16 14:29 Last Admin: 08/31/16 05:06 Dose: 100 mls/hr Insulin Aspart (Novolog Insulin Sliding Scale) 2 - 12 units SUBQ BID [facility] PRN Reason: Protocol Stop: 10/21/16 17:29 Last Admin: 08/30/16 17:55 Dose: Not Given Metformin HCl (Glucophage) 500 mg PO BID [facility] Stop: 10/22/16 09:59 Last Admin: 08/30/16 17:55 Dose: Not Given - Procedures Procedures: Procedures Procedure Code Date BLOOD TRANSFUSION SERVICE 94748 08/22/16 TRANSFUSE NONAUT RED BLOOD CELLS IN PERIPH VEIN, [facility] 40210L6 08/22/16 Assessment/Plan - Problem List Patient Problems: All Active Problems Anemia (Acute) D64.9 Dehydration syndrome (Acute) E86.0 Dehydration with hypernatremia (Acute) E87.0 ELEVATED WHITE BLOOD CELL COUNT (Acute) Prerenal azotemia (Acute) R79.89 SIRS (systemic inflammatory response syndrome) (Acute) R65.10 anemia (Acute) persistant leukocytosis (Acute) rosepsis (Acute) sirs (Acute) uti (Acute) Nutritional Asmnt/Malnutr-PDOC - Dietary Evaluation Malnutrition Findings (Please click <Entered> for more info): Nutritional Asmnt/Malnutrition Start: 08/23/16 09: 33 Text: Status: Complete Freq: Document 08/23/16 09:34 GSUN (Rec: 08/23/16 09:58 [email or web address] [email or web address]) Nutritional Asmnt/Malnutrition Patient General Information Nutritional Screening High Risk Screening Diagnosis ER: Sepsis due to UTI, DM2, HTN Pertinent Medical Hx/Surgical Hx ER: Dementia, DM, HTN Subjective Information 81 year old male from SNF, per ER notes, admitted due to acute severe, abnormal labs. Pt with eyes closed, moving hands around, appeared to be mumbling to self, did not respond to RD. Pt apepared thin overall, mild wasting to temporals. Spoke to RN, pt tolerating tube feeding well, no diarrhea noted. Current Diet Order/ Nutrition Support Diabetisource 60ml/hr x 20hrs, providing 1440kcal. Water flush 200ml qshift Pertinent Medications D5, Colace, Iron, Novolog, Glucophage Pertinent Labs 08/22: BUN 72H, creatinine 1.6H, 161H Nutritional Hx/Data Height 1.7 m Height (Calculated Centimeters) 170.2 Current Weight (lbs) 58.332 kg Weight (Calculated Kilograms) 58.3 Weight (Calculated Grams) 28295.0 [place] Body Weight 148lb Weight Status Approriate GI Symptoms Food Allergies No Cultural/Ethnic/Restoration Belief [facility] order: Glucerna 1.5 at 60ml/hr x 20hrs, providing 1800kcal. Water flush 50ml/hr x 20hrs, providing 1000ml. Skin Integrity/Comment: Saul 14. Right hip pressure area. Estimated Nutritional Goals BEE in Kcals: Using Current wt Calories/Kcals/Kg CBW 58.3kg Kcals Calculated 1749-2041kcal (30-35kcal/kg) Protein: Using Current wt Protein Calculated 76-93g (1.3-1.6g/kg) Fluid: ml 1749-2041ml (1ml/kcal) Nutritional Problem 1. Problem Problem Inadequate intake from enteral /parenteral nutrition infusion related to Etiology estimated nutritional needs, hypermetabolic state aeb Signs/Symptoms: only providing to meet 82% of lower end of estimated nutritional needs. Intervention/Recommendation Comments 1. Recommend Diabetisource 65ml/hr x 24hrs, providing 1872kcal, 94g protein, 1276ml free water. Pt was receiving 1800kcal at [facility], current diet order only providing 1440kcal. 2. Recommend 120ml water flush q6hrs when IV discontinued. Expected Outcomes/Goals Expected Outcomes/Goals 1. Pt to meet 100% of estimated nutritional needs on tube feeding with tolerance.
[2016-08-31] MEDS: INSULIN ASPART SLIDING SCALE 100 UNITS/ML UNIT SUBQ SCH ×2 (08:25→16:50)
[2016-08-31] MEDS ORDERED: Meperidine 25 mg/mL 1mL Syr IVP PRN (08:56)
[2016-08-31] MEDS ORDERED: Lactated Ringer 1,000 ML IV SCH (09:00)
[2016-08-31] MEDS: Ferrous Sulfate 325 MG TAB PO SCH ×2 (09:21→13:53)
[2016-08-31 12:14] LABS: FERRITIN 3564 ng/mL (30-400); IRON SATURATION 16 % (15-55); TIBC (LCI) 126 ug/dL (250-450); UIBC 106 ug/dL (111-343)
--- NOTE | 2016-08-31 12:32 | Infectious Disease Prog Note ---
Infectious Disease Subjective - Review of Systems Service Date: 08/31/16 Subjective: I and D was done yesterday. Infectious Disease Objective - Results Result Diagrams: 08/31/16 06:20 08/31/16 06:20 Recent Labs: Laboratory Last Values WBC 14.1 Th/cmm (4.8-10.8) H 08/31/16 06:20 RBC 2.82 Mil/cmm (3.80-5.80) L 08/31/16 06:20 Hgb 7.7 gm/dL (12.6-17.4) L* D 08/31/16 06:20 Hct 23.5 % (39.0-49.0) L* D 08/31/16 06:20 MCV 83.3 fl (80-99) 08/31/16 06:20 MCH 27.2 pg (27.0-31.0) 08/31/16 06:20 MCHC Differential 32.7 pg (28.0-36.0) 08/31/16 06:20 RDW 18.2 % (11.5-20.0) 08/31/16 06:20 Plt Count 465 Th/cmm (150-400) H 08/31/16 06:20 MPV 7.8 fl 08/31/16 06:20 Neutrophils % 85.7 % (40.0-80.0) H 08/31/16 06:20 Band Neutrophils % 2 % (0-10) 08/30/16 06:30 Lymphocytes % 5.2 % (20.0-50.0) L 08/31/16 06:20 Monocytes % 7.5 % (2.0-10.0) 08/31/16 06:20 Eosinophils % 1.0 % (0.0-5.0) 08/31/16 06:20 Basophils % 0.6 % (0.0-2.0) 08/31/16 06:20 Neutrophils (Manual) 79 % (40-80) 08/30/16 06:30 Lymphocytes 10 % (20-50) L 08/30/16 06:30 Monocytes 8 % (2-10) 08/30/16 06:30 Eosinophils 1 % (0-5) 08/30/16 06:30 Basophils 0 % (0-3) 08/27/16 05:43 Nucleated RBCs 1.0 % (0-0) H 08/26/16 06:33 Platelet Estimate ADEQUATE (NORMAL) 08/30/16 06:30 Platelet Morphology (NORMAL) 08/28/16 05:10 Anisocytosis 1+ 08/26/16 06:33 RBC Morph Micro Appear NORMAL (NORMAL) 08/27/16 05:43 Smear Path Review SEE BELOW 08/30/16 06:30 ESR > 140 mm/hr (0-20) H 08/22/16 13:00 Eos Smear Source URINE 08/25/16 02:50 Eos Smear Total Cells NONE SEEN (NONE SEEN) 08/25/16 02:50 PT 10.4 SECONDS (9.5-11.5) 08/30/16 06:30 INR 1.00 (0.5-1.4) 08/30/16 06:30 PTT (Actin FS) 22.1 SECONDS (26.0-38.0) L 08/30/16 06:30 Sodium 140 mEq/L (136-145) 08/31/16 06:20 Potassium 3.8 mEq/L (3.5-5.1) 08/31/16 06:20 Chloride 112 mEq/L (98-107) H 08/31/16 06:20 Carbon Dioxide 25.8 mEq/L (21.0-31.0) 08/31/16 06:20 Anion Gap 6.0 (7.0-16.0) L 08/31/16 06:20 BUN 24 mg/dL (7-25) 08/31/16 06:20 Creatinine 1.0 mg/dL (0.7-1.3) 08/31/16 06:20 Est GFR ( Amer) TNP 08/31/16 06:20 Est GFR (Non-Af Amer) TNP 08/31/16 06:20 BUN/Creatinine Ratio 24.0 08/31/16 06:20 Glucose 109 mg/dL (70-105) H 08/31/16 06:20 POC Glucose 104 MG/DL (70 - 105) 08/31/16 07:02 Whole Bld Lactic Acid 5.27 mmol/L (0.60-1.99) H* 08/22/16 15:55 Uric Acid 8.1 mg/dL (4.4-7.6) H 08/25/16 05:46 Calcium 8.9 mg/dL (8.6-10.3) 08/31/16 06:20 Phosphorus 2.3 mg/dL (2.5-5.0) L 08/25/16 05:46 Magnesium 2.0 mg/dL (1.9-2.7) 08/25/16 05:46 Iron 20 ug/dL (38-169) L 08/30/16 06:30 TIBC 126 ug/dL (250-450) L 08/30/16 06:30 Iron Saturation 16 % (15-55) 08/30/16 06:30 Unsaturated IBC 106 ug/dL (111-343) L 08/30/16 06:30 Ferritin 3564 ng/mL (30-400) H 08/30/16 06:30 Total Bilirubin 0.4 mg/dL (0.3-1.0) 08/25/16 05:46 AST 32 U/L (13-39) 08/25/16 05:46 ALT 17 U/L (7-52) 08/25/16 05:46 Alkaline Phosphatase 88 U/L (34-104) 08/25/16 05:46 Creatine Kinase 191 U/L (30-223) 08/22/16 13:50 C-Reactive Protein 26.0 mg/dL (0.0-0.9) H 08/22/16 13:00 Total Protein 8.2 gm/dL (6.0-8.3) 08/25/16 05:46 Albumin 2.4 gm/dL (4.2-5.5) L 08/25/16 05:46 Globulin 5.8 gm/dL 08/25/16 05:46 Albumin/Globulin Ratio 0.4 (1.0-1.8) L 08/25/16 05:46 Vitamin B12 772 pg/mL (211-946) 08/30/16 06:30 Urine Source CATH 08/22/16 14:50 Urine Color YELLOW 08/22/16 14:50 Urine Clarity CLOUDY (CLEAR) 08/22/16 14:50 Urine pH 8.5 08/22/16 14:50 Ur Specific [place] 1.015 (1.005-1.030) 08/22/16 14:50 Urine Protein 100 mg/dL (NEGATIVE) H 08/22/16 14:50 Urine Glucose (UA) NEGATIVE mg/dL (NEGATIVE) 08/22/16 14:50 Urine Ketones NEGATIVE mg/dL (NEGATIVE) 08/22/16 14:50 Urine Blood LARGE (NEGATIVE) H 08/22/16 14:50 Urine Nitrate NEGATIVE (NEGATIVE) 08/22/16 14:50 Urine Bilirubin NEGATIVE (NEGATIVE) 08/22/16 14:50 Urine Urobilinogen 1.0 E.U./dL (0.2 - 1.0) 08/22/16 14:50 Ur Leukocyte Esterase LARGE (NEGATIVE) H 08/22/16 14:50 Urine RBC 50-100 /hpf (0-5) H 08/22/16 14:50 Urine WBC 10-25 /hpf (0-5) H 08/22/16 14:50 Ur Epithelial Cells NONE SEEN /lpf (FEW) 08/22/16 14:50 Urine Bacteria FEW /hpf (NONE SEEN) 08/22/16 14:50 Urine Osmolality 436 mOsmol/kg 08/25/16 02:50 Ur Random Sodium 65 mmol/L 08/25/16 02:50 Urine Creatinine 33.7 mg/dl (Not Estab.) 08/25/16 02:50 Urine Microalbumin 56.2 ug/mL (Not Estab.) 08/25/16 02:50 Microalb/Creat Ratio 166.8 mg/g creat (0.0-30.0) H 08/25/16 02:50 Blood Type O POSITIVE 08/31/16 06:20 Antibody Screen NEGATIVE 08/31/16 06:20 Crossmatch See Detail 08/31/16 06:20 - Physical Exam Vitals and I&O: Vital Signs Temp 99.4 F 08/31/16 03:00 Pulse 109 08/31/16 03:00 Resp 18 08/31/16 03:00 BP 106/72 08/31/16 03:00 Pulse Ox 96 08/31/16 03:00 Intake & Output 08/30/16 08/31/16 08/31/16 18:59 06:59 18:59 Intake Total 100 100 Balance 100 100 Intake: Intake, IV Amount 100 100 Piperacillin Sodium/ 100 100 Tazobact 4.5 gm In Sodium Chloride 0.9% 100 ml @ 100 mls/hr IV Q8HR [facility] Rx #:[id number] Other: # Voids 4 # Bowel Movements 0 Stool Characteristics Soft Formed Active Medications: Current Medications Acetaminophen (Tylenol 650mg/20.3ml Suspension) 650 mg PO Q4H PRN PRN Reason: Fever > 101 Stop: 10/26/16 13:43 Last Admin: 08/29/16 16:29 Dose: 650 mg Docusate Sodium (Colace) 100 mg PO HS [facility] Stop: 10/21/16 20:59 Last Admin: 08/30/16 21:58 Dose: 100 mg Ferrous Sulfate (Iron) 325 mg PO TID [facility] Stop: 10/21/16 20:59 Last Admin: 08/31/16 09:21 Dose: 325 mg Piperacillin Sod/Tazobactam (Sod 4.5 gm/ Sodium Chloride) 100 mls @ 100 mls/hr IV Q8HR [facility] Stop: 10/29/16 14:29 Last Admin: 08/31/16 05:06 Dose: 100 mls/hr Lactated Ringer's (Lactated Ringer) 1,000 mls @ 0 mls/hr IV .Q0M [facility] PRN Reason: TKO Stop: 09/01/16 08:59 Insulin Aspart (Novolog Insulin Sliding Scale) 2 - 12 units SUBQ BID [facility] PRN Reason: Protocol Stop: 10/21/16 17:29 Last Admin: 08/31/16 08:25 Dose: Not Given Meperidine HCl (Demerol) 12.5 mg IVP UD PRN PRN Reason: POST-OP PAIN Stop: 09/01/16 08:55 Metformin HCl (Glucophage) 500 mg PO BID [facility] Stop: 10/22/16 09:59 Last Admin: 08/31/16 09:21 Dose: 500 mg General: no acute distress, well developed, well nourished HEENT: atraumatic, normocephalic, PERRLA, EOMI Neck: supple, thyromegaly Cardiovascular: S1S2, regular Lungs: clear to auscultation bilaterally, clear to percussion Abdomen: soft, no tender, no distended Extremities: no cyanosis, no clubbing, no edema Neurological: awake, alert, oriented Skin: other - Procedures Procedures: Procedures Procedure Code Date BLOOD TRANSFUSION SERVICE 84917 08/22/16 TRANSFUSE NONAUT RED BLOOD CELLS IN PERIPH VEIN, PERC 64532X6 08/22/16 Infectious Disease Assmt/Plan - Problem List Patient Problems: All Active Problems Anemia (Acute) D64.9 Dehydration syndrome (Acute) E86.0 Dehydration with hypernatremia (Acute) E87.0 ELEVATED WHITE BLOOD CELL COUNT (Acute) Prerenal azotemia (Acute) R79.89 SIRS (systemic inflammatory response syndrome) (Acute) R65.10 anemia (Acute) persistant leukocytosis (Acute) rosepsis (Acute) sirs (Acute) uti (Acute) - Assessment Assessment: Impression: 1. UTI. 2. Leukocytosis improving. 3. Dementia. 4. R/o abscess or phlegmon in right hip soft tissue. 5. Sepsis. 6. superficial wounds both hips. s/p debridement. Recommendations: Change antibiotics to zosyn. may initiate dc plan po levaquin for 7 days, wound care. Nutritional Asmnt/Malnutr-PDOC - Dietary Evaluation Malnutrition Findings (Please click <Entered> for more info): Nutritional Asmnt/Malnutrition Start: 08/23/16 09: 33 Text: Status: Complete Freq: Document 08/23/16 09:34 GSUN (Rec: 08/23/16 09:58 [email or web address] [email or web address]) Nutritional Asmnt/Malnutrition Patient General Information Nutritional Screening High Risk Screening Diagnosis ER: Sepsis due to UTI, DM2, HTN Pertinent Medical Hx/Surgical Hx ER: Dementia, DM, HTN Subjective Information 81 year old male from SNF, per ER notes, admitted due to acute severe, abnormal labs. Pt with eyes closed, moving hands around, appeared to be mumbling to self, did not respond to RD. Pt apepared thin overall, mild wasting to temporals. Spoke to RN, pt tolerating tube feeding well, no diarrhea noted. Current Diet Order/ Nutrition Support Diabetisource 60ml/hr x 20hrs, providing 1440kcal. 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 Water flush 50ml/hr x 20hrs, providing 1000ml. Skin Integrity/Comment: Saul 14. Right hip pressure area. Estimated Nutritional Goals BEE in Kcals: Using Current wt Calories/Kcals/Kg CBW 58.3kg Kcals Calculated 1749-2041kcal (30-35kcal/kg) Protein: Using Current wt Protein Calculated 76-93g (1.3-1.6g/kg) Fluid: ml 1749-2041ml (1ml/kcal) Nutritional Problem 1. Problem Problem Inadequate intake from enteral /parenteral nutrition infusion related to Etiology estimated nutritional needs, hypermetabolic state aeb Signs/Symptoms: only providing to meet 82% of lower end of estimated nutritional needs. Intervention/Recommendation Comments 1. Recommend Diabetisource 65ml/hr x 24hrs, providing 1872kcal, 94g protein, 1276ml free water. Pt was receiving 1800kcal at [facility], current diet order only providing 1440kcal. 2. Recommend 120ml water flush q6hrs when IV discontinued. Expected Outcomes/Goals Expected Outcomes/Goals 1. Pt to meet 100% of estimated nutritional needs on tube feeding with tolerance.
--- NOTE | 2016-08-31 12:42 | Operative Report ---
DATE OF SURGERY: 08/31/2016 PREOPERATIVE DIAGNOSES: 1. Left hip decubitus ulcer. 2. Right hip decubitus ulcer. 3. Sacral decubitus ulcer, size of ulcer, left hip 3 x 2 cm depth to muscle, stage III. Right hip ulcer size 2 x 3 cm depth to subcutaneous tissues, stage II. Sacral decubitus ulcer, size is 3 x 2 cm depth to subcutaneous tissue, stage II. SURGEON: Cherrie Chavarria MD ANESTHESIA: MAC. ANESTHESIOLOGIST: Khloe Butcher M.D. DETAILS OF PROCEDURE: The patient was turned with exposure of the left hip. This was prepped with Betadine including the sacral ulcer. Then, 1% lidocaine was infiltrated around the ulcer and a knife was used to debride the ulcer. Bleeders were coagulated. ____ and foam was then applied over the ulcer following the excisional debridement. The patient tolerated the procedure well. JOB# [id number]
[2016-08-31 13:20] LABS: HEMATOCRIT 24.6 % (39.0-49.0); HEMOGLOBIN 8.2 gm/dL (12.6-17.4)
--- NOTE | 2016-08-31 14:25 | General Progress Note ---
Subjective - Review of Systems Events since last encounter: leukocytosis anemic no acute distress Subjective: ptis somewhat confused sob still has leukocytosis 16k discussed with id Objective - Results Result Diagrams: 08/31/16 13:08 08/31/16 06:20 Recent Labs: Laboratory Last Values WBC 14.1 Th/cmm (4.8-10.8) H 08/31/16 06:20 RBC 2.82 Mil/cmm (3.80-5.80) L 08/31/16 06:20 Hgb 8.2 gm/dL (12.6-17.4) L 08/31/16 13:08 Hct 24.6 % (39.0-49.0) L 08/31/16 13:08 MCV 83.3 fl (80-99) 08/31/16 06:20 MCH 27.2 pg (27.0-31.0) 08/31/16 06:20 MCHC Differential 32.7 pg (28.0-36.0) 08/31/16 06:20 RDW 18.2 % (11.5-20.0) 08/31/16 06:20 Plt Count 465 Th/cmm (150-400) H 08/31/16 06:20 MPV 7.8 fl 08/31/16 06:20 Neutrophils % 85.7 % (40.0-80.0) H 08/31/16 06:20 Band Neutrophils % 2 % (0-10) 08/30/16 06:30 Lymphocytes % 5.2 % (20.0-50.0) L 08/31/16 06:20 Monocytes % 7.5 % (2.0-10.0) 08/31/16 06:20 Eosinophils % 1.0 % (0.0-5.0) 08/31/16 06:20 Basophils % 0.6 % (0.0-2.0) 08/31/16 06:20 Neutrophils (Manual) 79 % (40-80) 08/30/16 06:30 Lymphocytes 10 % (20-50) L 08/30/16 06:30 Monocytes 8 % (2-10) 08/30/16 06:30 Eosinophils 1 % (0-5) 08/30/16 06:30 Basophils 0 % (0-3) 08/27/16 05:43 Nucleated RBCs 1.0 % (0-0) H 08/26/16 06:33 Platelet Estimate ADEQUATE (NORMAL) 08/30/16 06:30 Platelet Morphology (NORMAL) 08/28/16 05:10 Anisocytosis 1+ 08/26/16 06:33 RBC Morph Micro Appear NORMAL (NORMAL) 08/27/16 05:43 Smear Path Review SEE BELOW 08/30/16 06:30 ESR > 140 mm/hr (0-20) H 08/22/16 13:00 Eos Smear Source URINE 08/25/16 02:50 Eos Smear Total Cells NONE SEEN (NONE SEEN) 08/25/16 02:50 PT 10.4 SECONDS (9.5-11.5) 08/30/16 06:30 INR 1.00 (0.5-1.4) 08/30/16 06:30 PTT (Actin FS) 22.1 SECONDS (26.0-38.0) L 08/30/16 06:30 Sodium 140 mEq/L (136-145) 08/31/16 06:20 Potassium 3.8 mEq/L (3.5-5.1) 08/31/16 06:20 Chloride 112 mEq/L (98-107) H 08/31/16 06:20 Carbon Dioxide 25.8 mEq/L (21.0-31.0) 08/31/16 06:20 Anion Gap 6.0 (7.0-16.0) L 08/31/16 06:20 BUN 24 mg/dL (7-25) 08/31/16 06:20 Creatinine 1.0 mg/dL (0.7-1.3) 08/31/16 06:20 Est GFR ( Amer) TNP 08/31/16 06:20 Est GFR (Non-Af Amer) TNP 08/31/16 06:20 BUN/Creatinine Ratio 24.0 08/31/16 06:20 Glucose 109 mg/dL (70-105) H 08/31/16 06:20 POC Glucose 104 MG/DL (70 - 105) 08/31/16 07:02 Whole Bld Lactic Acid 5.27 mmol/L (0.60-1.99) H* 08/22/16 15:55 Uric Acid 8.1 mg/dL (4.4-7.6) H 08/25/16 05:46 Calcium 8.9 mg/dL (8.6-10.3) 08/31/16 06:20 Phosphorus 2.3 mg/dL (2.5-5.0) L 08/25/16 05:46 Magnesium 2.0 mg/dL (1.9-2.7) 08/25/16 05:46 Iron 20 ug/dL (38-169) L 08/30/16 06:30 TIBC 126 ug/dL (250-450) L 08/30/16 06:30 Iron Saturation 16 % (15-55) 08/30/16 06:30 Unsaturated IBC 106 ug/dL (111-343) L 08/30/16 06:30 Ferritin 3564 ng/mL (30-400) H 08/30/16 06:30 Total Bilirubin 0.4 mg/dL (0.3-1.0) 08/25/16 05:46 AST 32 U/L (13-39) 08/25/16 05:46 ALT 17 U/L (7-52) 08/25/16 05:46 Alkaline Phosphatase 88 U/L (34-104) 08/25/16 05:46 Creatine Kinase 191 U/L (30-223) 08/22/16 13:50 C-Reactive Protein 26.0 mg/dL (0.0-0.9) H 08/22/16 13:00 Total Protein 8.2 gm/dL (6.0-8.3) 08/25/16 05:46 Albumin 2.4 gm/dL (4.2-5.5) L 08/25/16 05:46 Globulin 5.8 gm/dL 08/25/16 05:46 Albumin/Globulin Ratio 0.4 (1.0-1.8) L 08/25/16 05:46 Vitamin B12 772 pg/mL (211-946) 08/30/16 06:30 Urine Source CATH 08/22/16 14:50 Urine Color YELLOW 08/22/16 14:50 Urine Clarity CLOUDY (CLEAR) 08/22/16 14:50 Urine pH 8.5 08/22/16 14:50 Ur Specific [place] 1.015 (1.005-1.030) 08/22/16 14:50 Urine Protein 100 mg/dL (NEGATIVE) H 08/22/16 14:50 Urine Glucose (UA) NEGATIVE mg/dL (NEGATIVE) 08/22/16 14:50 Urine Ketones NEGATIVE mg/dL (NEGATIVE) 08/22/16 14:50 Urine Blood LARGE (NEGATIVE) H 08/22/16 14:50 Urine Nitrate NEGATIVE (NEGATIVE) 08/22/16 14:50 Urine Bilirubin NEGATIVE (NEGATIVE) 08/22/16 14:50 Urine Urobilinogen 1.0 E.U./dL (0.2 - 1.0) 08/22/16 14:50 Ur Leukocyte Esterase LARGE (NEGATIVE) H 08/22/16 14:50 Urine RBC 50-100 /hpf (0-5) H 08/22/16 14:50 Urine WBC 10-25 /hpf (0-5) H 08/22/16 14:50 Ur Epithelial Cells NONE SEEN /lpf (FEW) 08/22/16 14:50 Urine Bacteria FEW /hpf (NONE SEEN) 08/22/16 14:50 Urine Osmolality 436 mOsmol/kg 08/25/16 02:50 Ur Random Sodium 65 mmol/L 08/25/16 02:50 Urine Creatinine 33.7 mg/dl (Not Estab.) 08/25/16 02:50 Urine Microalbumin 56.2 ug/mL (Not Estab.) 08/25/16 02:50 Microalb/Creat Ratio 166.8 mg/g creat (0.0-30.0) H 08/25/16 02:50 Blood Type O POSITIVE 08/31/16 06:20 Antibody Screen NEGATIVE 08/31/16 06:20 Crossmatch See Detail 08/31/16 06:20 - Physical Exam Vitals and I&O: Vital Signs Temp 97.6 F 08/31/16 11:00 Pulse 77 08/31/16 11:00 Resp 18 08/31/16 11:00 BP 112/65 08/31/16 11:00 Pulse Ox 97 08/31/16 11:00 Intake & Output 08/30/16 08/31/16 08/31/16 18:59 06:59 18:59 Intake Total 100 200 Balance 100 200 Intake: Intake, IV Amount 100 200 Piperacillin Sodium/ 100 200 Tazobact 4.5 gm In Sodium Chloride 0.9% 100 ml @ 100 mls/hr IV Q8HR [facility] Rx #:[id number] Other: # Voids 4 # Bowel Movements 0 Stool Characteristics Soft Formed Active Medications: Current Medications Acetaminophen (Tylenol 650mg/20.3ml Suspension) 650 mg PO Q4H PRN PRN Reason: Fever > 101 Stop: 10/26/16 13:43 Last Admin: 08/29/16 16:29 Dose: 650 mg Docusate Sodium (Colace) 100 mg PO HS [facility] Stop: 10/21/16 20:59 Last Admin: 08/30/16 21:58 Dose: 100 mg Ferrous Sulfate (Iron) 325 mg PO TID [facility] Stop: 10/21/16 20:59 Last Admin: 08/31/16 13:53 Dose: 325 mg Piperacillin Sod/Tazobactam (Sod 4.5 gm/ Sodium Chloride) 100 mls @ 100 mls/hr IV Q8HR [facility] Stop: 10/29/16 14:29 Last Admin: 08/31/16 12:49 Dose: 100 mls/hr Lactated Ringer's (Lactated Ringer) 1,000 mls @ 0 mls/hr IV .Q0M [facility] PRN Reason: TKO Stop: 09/01/16 08:59 Insulin Aspart (Novolog Insulin Sliding Scale) 2 - 12 units SUBQ BID [facility] PRN Reason: Protocol Stop: 10/21/16 17:29 Last Admin: 08/31/16 08:25 Dose: Not Given Meperidine HCl (Demerol) 12.5 mg IVP UD PRN PRN Reason: POST-OP PAIN Stop: 09/01/16 08:55 Metformin HCl (Glucophage) 500 mg PO BID [facility] Stop: 10/22/16 09:59 Last Admin: 08/31/16 09:21 Dose: 500 mg General: Alert, Oriented x3, Cooperative, No acute distress HEENT: Atraumatic, PERRLA, EOMI Neck: Supple Cardiovascular: Regular rate, Normal S1, Normal S2 Lungs: Clear to auscultation Abdomen: Bowel sounds, Soft - Procedures Procedures: Procedures Procedure Code Date BLOOD TRANSFUSION SERVICE 20772 08/22/16 TRANSFUSE NONAUT RED BLOOD CELLS IN PERIPH VEIN, PERC 95289B7 08/22/16 Assessment/Plan - Problem List Patient Problems: All Active Problems Anemia (Acute) D64.9 Dehydration syndrome (Acute) E86.0 Dehydration with hypernatremia (Acute) E87.0 ELEVATED WHITE BLOOD CELL COUNT (Acute) Prerenal azotemia (Acute) R79.89 SIRS (systemic inflammatory response syndrome) (Acute) R65.10 anemia (Acute) persistant leukocytosis (Acute) rosepsis (Acute) sirs (Acute) uti (Acute) - Plan Plan: increse fluids iv antibiotics as per ID Nutritional Asmnt/Malnutr-PDOC - Dietary Evaluation Malnutrition Findings (Please click <Entered> for more info): Nutritional Asmnt/Malnutrition Start: 08/23/16 09: 33 Text: Status: Complete Freq: Document 08/23/16 09:34 GSUN (Rec: 08/23/16 09:58 GSUN [email or web address]) Nutritional Asmnt/Malnutrition Patient General Information Nutritional Screening High Risk Screening Diagnosis ER: Sepsis due to UTI, DM2, HTN Pertinent Medical Hx/Surgical Hx ER: Dementia, DM, HTN Subjective Information 81 year old male from SNF, per ER notes, admitted due to acute severe, abnormal labs. Pt with eyes closed, moving hands around, appeared to be mumbling to self, did not respond to RD. Pt apepared thin overall, mild wasting to temporals. Spoke to RN, pt tolerating tube feeding well, no diarrhea noted. Current Diet Order/ Nutrition Support Diabetisource 60ml/hr x 20hrs, providing 1440kcal. Water flush 200ml qshift Pertinent Medications D5, Colace, Iron, Novolog, Glucophage Pertinent Labs 08/22: BUN 72H, creatinine 1.6H, 161H Nutritional Hx/Data Height 1.7 m Height (Calculated Centimeters) 170.2 Current Weight (lbs) 58.332 kg Weight (Calculated Kilograms) 58.3 Weight (Calculated Grams) 64885.0 [place] Body Weight 148lb Weight Status Approriate GI Symptoms Food Allergies No Cultural/Ethnic/[employer]ism Belief SNF order: Glucerna 1.5 at 60ml/hr x 20hrs, providing 1800kcal. Water flush 50ml/hr x 20hrs, providing 1000ml. Skin Integrity/Comment: Saul 14. Right hip pressure area. Estimated Nutritional Goals BEE in Kcals: Using Current wt Calories/Kcals/Kg CBW 58.3kg Kcals Calculated 1749-2041kcal (30-35kcal/kg) Protein: Using Current wt Protein Calculated 76-93g (1.3-1.6g/kg) Fluid: ml 1749-2041ml (1ml/kcal) Nutritional Problem 1. Problem Problem Inadequate intake from enteral /parenteral nutrition infusion related to Etiology estimated nutritional needs, hypermetabolic state aeb Signs/Symptoms: only providing to meet 82% of lower end of estimated nutritional needs. Intervention/Recommendation Comments 1. Recommend Diabetisource 65ml/hr x 24hrs, providing 1872kcal, 94g protein, 1276ml free water. Pt was receiving 1800kcal at [facility], current diet order only providing 1440kcal. 2. Recommend 120ml water flush q6hrs when IV discontinued. Expected Outcomes/Goals Expected Outcomes/Goals 1. Pt to meet 100% of estimated nutritional needs on tube feeding with tolerance.
--- NOTE | 2016-08-31 14:52 | General Progress Note ---
Subjective - Review of Systems Service Date: 08/31/16 Subjective: sleeping, nonverbal, comfortable Objective - Results Result Diagrams: 08/31/16 13:08 08/31/16 06:20 Recent Labs: Laboratory Last Values WBC 14.1 Th/cmm (4.8-10.8) H 08/31/16 06:20 RBC 2.82 Mil/cmm (3.80-5.80) L 08/31/16 06:20 Hgb 8.2 gm/dL (12.6-17.4) L 08/31/16 13:08 Hct 24.6 % (39.0-49.0) L 08/31/16 13:08 MCV 83.3 fl (80-99) 08/31/16 06:20 MCH 27.2 pg (27.0-31.0) 08/31/16 06:20 MCHC Differential 32.7 pg (28.0-36.0) 08/31/16 06:20 RDW 18.2 % (11.5-20.0) 08/31/16 06:20 Plt Count 465 Th/cmm (150-400) H 08/31/16 06:20 MPV 7.8 fl 08/31/16 06:20 Neutrophils % 85.7 % (40.0-80.0) H 08/31/16 06:20 Band Neutrophils % 2 % (0-10) 08/30/16 06:30 Lymphocytes % 5.2 % (20.0-50.0) L 08/31/16 06:20 Monocytes % 7.5 % (2.0-10.0) 08/31/16 06:20 Eosinophils % 1.0 % (0.0-5.0) 08/31/16 06:20 Basophils % 0.6 % (0.0-2.0) 08/31/16 06:20 Neutrophils (Manual) 79 % (40-80) 08/30/16 06:30 Lymphocytes 10 % (20-50) L 08/30/16 06:30 Monocytes 8 % (2-10) 08/30/16 06:30 Eosinophils 1 % (0-5) 08/30/16 06:30 Basophils 0 % (0-3) 08/27/16 05:43 Nucleated RBCs 1.0 % (0-0) H 08/26/16 06:33 Platelet Estimate ADEQUATE (NORMAL) 08/30/16 06:30 Platelet Morphology (NORMAL) 08/28/16 05:10 Anisocytosis 1+ 08/26/16 06:33 RBC Morph Micro Appear NORMAL (NORMAL) 08/27/16 05:43 Smear Path Review SEE BELOW 08/30/16 06:30 ESR > 140 mm/hr (0-20) H 08/22/16 13:00 Eos Smear Source URINE 08/25/16 02:50 Eos Smear Total Cells NONE SEEN (NONE SEEN) 08/25/16 02:50 PT 10.4 SECONDS (9.5-11.5) 08/30/16 06:30 INR 1.00 (0.5-1.4) 08/30/16 06:30 PTT (Actin FS) 22.1 SECONDS (26.0-38.0) L 08/30/16 06:30 Sodium 140 mEq/L (136-145) 08/31/16 06:20 Potassium 3.8 mEq/L (3.5-5.1) 08/31/16 06:20 Chloride 112 mEq/L (98-107) H 08/31/16 06:20 Carbon Dioxide 25.8 mEq/L (21.0-31.0) 08/31/16 06:20 Anion Gap 6.0 (7.0-16.0) L 08/31/16 06:20 BUN 24 mg/dL (7-25) 08/31/16 06:20 Creatinine 1.0 mg/dL (0.7-1.3) 08/31/16 06:20 Est GFR ( Amer) TNP 08/31/16 06:20 Est GFR (Non-Af Amer) TNP 08/31/16 06:20 BUN/Creatinine Ratio 24.0 08/31/16 06:20 Glucose 109 mg/dL (70-105) H 08/31/16 06:20 POC Glucose 104 MG/DL (70 - 105) 08/31/16 07:02 Whole Bld Lactic Acid 5.27 mmol/L (0.60-1.99) H* 08/22/16 15:55 Uric Acid 8.1 mg/dL (4.4-7.6) H 08/25/16 05:46 Calcium 8.9 mg/dL (8.6-10.3) 08/31/16 06:20 Phosphorus 2.3 mg/dL (2.5-5.0) L 08/25/16 05:46 Magnesium 2.0 mg/dL (1.9-2.7) 08/25/16 05:46 Iron 20 ug/dL (38-169) L 08/30/16 06:30 TIBC 126 ug/dL (250-450) L 08/30/16 06:30 Iron Saturation 16 % (15-55) 08/30/16 06:30 Unsaturated IBC 106 ug/dL (111-343) L 08/30/16 06:30 Ferritin 3564 ng/mL (30-400) H 08/30/16 06:30 Total Bilirubin 0.4 mg/dL (0.3-1.0) 08/25/16 05:46 AST 32 U/L (13-39) 08/25/16 05:46 ALT 17 U/L (7-52) 08/25/16 05:46 Alkaline Phosphatase 88 U/L (34-104) 08/25/16 05:46 Creatine Kinase 191 U/L (30-223) 08/22/16 13:50 C-Reactive Protein 26.0 mg/dL (0.0-0.9) H 08/22/16 13:00 Total Protein 8.2 gm/dL (6.0-8.3) 08/25/16 05:46 Albumin 2.4 gm/dL (4.2-5.5) L 08/25/16 05:46 Globulin 5.8 gm/dL 08/25/16 05:46 Albumin/Globulin Ratio 0.4 (1.0-1.8) L 08/25/16 05:46 Vitamin B12 772 pg/mL (211-946) 08/30/16 06:30 Urine Source CATH 08/22/16 14:50 Urine Color YELLOW 08/22/16 14:50 Urine Clarity CLOUDY (CLEAR) 08/22/16 14:50 Urine pH 8.5 08/22/16 14:50 Ur Specific [place] 1.015 (1.005-1.030) 08/22/16 14:50 Urine Protein 100 mg/dL (NEGATIVE) H 08/22/16 14:50 Urine Glucose (UA) NEGATIVE mg/dL (NEGATIVE) 08/22/16 14:50 Urine Ketones NEGATIVE mg/dL (NEGATIVE) 08/22/16 14:50 Urine Blood LARGE (NEGATIVE) H 08/22/16 14:50 Urine Nitrate NEGATIVE (NEGATIVE) 08/22/16 14:50 Urine Bilirubin NEGATIVE (NEGATIVE) 08/22/16 14:50 Urine Urobilinogen 1.0 E.U./dL (0.2 - 1.0) 08/22/16 14:50 Ur Leukocyte Esterase LARGE (NEGATIVE) H 08/22/16 14:50 Urine RBC 50-100 /hpf (0-5) H 08/22/16 14:50 Urine WBC 10-25 /hpf (0-5) H 08/22/16 14:50 Ur Epithelial Cells NONE SEEN /lpf (FEW) 08/22/16 14:50 Urine Bacteria FEW /hpf (NONE SEEN) 08/22/16 14:50 Urine Osmolality 436 mOsmol/kg 08/25/16 02:50 Ur Random Sodium 65 mmol/L 08/25/16 02:50 Urine Creatinine 33.7 mg/dl (Not Estab.) 08/25/16 02:50 Urine Microalbumin 56.2 ug/mL (Not Estab.) 08/25/16 02:50 Microalb/Creat Ratio 166.8 mg/g creat (0.0-30.0) H 08/25/16 02:50 Blood Type O POSITIVE 08/31/16 06:20 Antibody Screen NEGATIVE 08/31/16 06:20 Crossmatch See Detail 08/31/16 06:20 - Physical Exam Vitals and I&O: Vital Signs Temp 97.6 F 08/31/16 11:00 Pulse 77 08/31/16 11:00 Resp 18 08/31/16 11:00 BP 112/65 08/31/16 11:00 Pulse Ox 97 08/31/16 11:00 Intake & Output 08/30/16 08/31/16 08/31/16 18:59 06:59 18:59 Intake Total 100 200 Balance 100 200 Intake: Intake, IV Amount 100 200 Piperacillin Sodium/ 100 200 Tazobact 4.5 gm In Sodium Chloride 0.9% 100 ml @ 100 mls/hr IV Q8HR [facility] Rx #:[id number] Other: # Voids 4 # Bowel Movements 0 Stool Characteristics Soft Formed Active Medications: Current Medications Acetaminophen (Tylenol 650mg/20.3ml Suspension) 650 mg PO Q4H PRN PRN Reason: Fever > 101 Stop: 10/26/16 13:43 Last Admin: 08/29/16 16:29 Dose: 650 mg Docusate Sodium (Colace) 100 mg PO HS [facility] Stop: 10/21/16 20:59 Last Admin: 08/30/16 21:58 Dose: 100 mg Ferrous Sulfate (Iron) 325 mg PO TID [facility] Stop: 10/21/16 20:59 Last Admin: 08/31/16 13:53 Dose: 325 mg Piperacillin Sod/Tazobactam (Sod 4.5 gm/ Sodium Chloride) 100 mls @ 100 mls/hr IV Q8HR [facility] Stop: 10/29/16 14:29 Last Admin: 08/31/16 12:49 Dose: 100 mls/hr Lactated Ringer's (Lactated Ringer) 1,000 mls @ 0 mls/hr IV .Q0M [facility] PRN Reason: TKO Stop: 09/01/16 08:59 Insulin Aspart (Novolog Insulin Sliding Scale) 2 - 12 units SUBQ BID [facility] PRN Reason: Protocol Stop: 10/21/16 17:29 Last Admin: 08/31/16 08:25 Dose: Not Given Meperidine HCl (Demerol) 12.5 mg IVP UD PRN PRN Reason: POST-OP PAIN Stop: 09/01/16 08:55 Metformin HCl (Glucophage) 500 mg PO BID [facility] Stop: 10/22/16 09:59 Last Admin: 08/31/16 09:21 Dose: 500 mg General: No acute distress HEENT: Atraumatic, Mucous membr. moist/pink Neck: Supple, +2 carotid pulse wo bruit Cardiovascular: Regular rate, Normal S1, Normal S2 Lungs: Other (few rhonchi) Abdomen: Bowel sounds, Soft Extremities: no Edema Neurological: Sensation intact Skin: no Rash Psych/Mental Status: Mood NL - Procedures Procedures: Procedures Procedure Code Date BLOOD TRANSFUSION SERVICE 77044 08/22/16 TRANSFUSE NONAUT RED BLOOD CELLS IN PERIPH VEIN, PERC 31470B4 08/22/16 Assessment/Plan - Problem List Patient Problems: All Active Problems Anemia (Acute) D64.9 Dehydration syndrome (Acute) E86.0 Dehydration with hypernatremia (Acute) E87.0 ELEVATED WHITE BLOOD CELL COUNT (Acute) Prerenal azotemia (Acute) R79.89 SIRS (systemic inflammatory response syndrome) (Acute) R65.10 anemia (Acute) persistant leukocytosis (Acute) rosepsis (Acute) sirs (Acute) uti (Acute) - Assessment Assessment: ALLISON Type 2 DM dehydration Ess HTN Alzh Dementia Severe Malnutrition Anemia acute on chronic P. mirabilis UTI Leukocytosis etio? - Plan Plan: Lab - Result Diagrams 08/25/16 05:46 08/25/16 05:46 Current Medications Docusate Sodium (Colace) 100 mg PO HS [facility] Stop: 10/21/16 20:59 Last Admin: 08/24/16 22:35 Dose: 100 mg Ferrous Sulfate (Iron) 325 mg PO TID [facility] Stop: 10/21/16 20:59 Last Admin: 08/25/16 10:34 Dose: 325 mg Ceftriaxone Sodium 1 gm/ (Sodium Chloride) 50 mls @ 100 mls/hr IV Q24HR [facility] Stop: 10/22/16 08:59 Last Admin: 08/25/16 10:35 Dose: 100 mls/hr Dextrose (D5w) 1,000 mls @ 75 mls/hr IV .[id number] [facility] Stop: 10/23/16 14:44 Last Admin: 08/25/16 05:57 Dose: 75 mls/hr Insulin Aspart (Novolog Insulin Sliding Scale) 2 - 12 units SUBQ BID [facility] PRN Reason: Protocol Stop: 10/21/16 17:29 Last Admin: 08/25/16 11:00 Dose: 2 units Metformin HCl (Glucophage) 500 mg PO BID [facility] Stop: 10/22/16 09:59 Last Admin: 08/25/16 10:00 Dose: 500 mg kideny fnc remain stable @ 24/1 Na down to 140 continue gt feeding f/u electrolytes, cbc will dc ivf due to progressive drop in Na WBC down to 14.1 CT Scan abd/pelvis revealed abnormal soft tissue density near right hip Nutritional Asmnt/Malnutr-PDOC - Dietary Evaluation Malnutrition Findings (Please click <Entered> for more info): Nutritional Asmnt/Malnutrition Start: 08/23/16 09: 33 Text: Status: Complete Freq: Document 08/23/16 09:34 GSUN (Rec: 08/23/16 09:58 ROB [id number]) Nutritional Asmnt/Malnutrition Patient General Information Nutritional Screening High Risk Screening Diagnosis ER: Sepsis due to UTI, DM2, HTN Pertinent Medical Hx/Surgical Hx ER: Dementia, DM, HTN Subjective Information 81 year old male from [facility], per ER notes, admitted due to acute severe, abnormal labs. Pt with eyes closed, moving hands around, appeared to be mumbling to self, did not respond to RD. Pt apepared thin overall, mild wasting to temporals. Spoke to RN, pt tolerating tube feeding well, no diarrhea noted. Current Diet Order/ Nutrition Support Diabetisource 60ml/hr x 20hrs, providing 1440kcal. Water flush 200ml qshift Pertinent Medications D5, Colace, Iron, Novolog, Glucophage Pertinent Labs 08/22: BUN 72H, creatinine 1.6H, 161H Nutritional Hx/Data Height 1.7 m Height (Calculated Centimeters) 170.2 Current Weight (lbs) 58.332 kg Weight (Calculated Kilograms) 58.3 Weight (Calculated Grams) 22260.0 [place] Body Weight 148lb Weight Status Approriate GI Symptoms Food Allergies No Cultural/Ethnic/Mandaeism Belief SNF order: Glucerna 1.5 at 60ml/hr x 20hrs, providing 1800kcal. Water flush 50ml/hr x 20hrs, providing 1000ml. Skin Integrity/Comment: Saul 14. Right hip pressure area. Estimated Nutritional Goals BEE in Kcals: Using Current wt Calories/Kcals/Kg CBW 58.3kg Kcals Calculated 1749-2041kcal (30-35kcal/kg) Protein: Using Current wt Protein Calculated 76-93g (1.3-1.6g/kg) Fluid: ml 1749-2041ml (1ml/kcal) Nutritional Problem 1. Problem Problem Inadequate intake from enteral /parenteral nutrition infusion related to Etiology estimated nutritional needs, hypermetabolic state aeb Signs/Symptoms: only providing to meet 82% of lower end of estimated nutritional needs. Intervention/Recommendation Comments 1. Recommend Diabetisource 65ml/hr x 24hrs, providing 1872kcal, 94g protein, 1276ml free water. Pt was receiving 1800kcal at [facility], current diet order only providing 1440kcal. 2. Recommend 120ml water flush q6hrs when IV discontinued. Expected Outcomes/Goals Expected Outcomes/Goals 1. Pt to meet 100% of estimated nutritional needs on tube feeding with tolerance.
--- NOTE | 2016-09-01 13:13 | Pathology Report ---
[id number] Collection Date: 08/31/2016 Surgeon: Dr. Giovanni Grier Specimen Description: 1. Left buttock excision 2. Left hip excision Gross Description: Part I: Received in formalin is a 1.1 x 1.0 x 0.2 cm excision of ulcerated roth-rodríguez skin. The margins are inked in blue color, and the specimen is serially sectioned and totally submitted in one cassette. Gross Description: Part II: Received in formalin is a 2.4 x 2.0 x 0.5 cm excision of ulcerated roth-rodríguez skin. The margins are inked in blue color. The specimen is serially sectioned and totally submitted in two cassettes labeled B1 and B2. Microscopic Description: Part I: The histologic sections show ulcerated skin with acute inflammation and fibrovascular reaction consistent with granulation tissue. Areas of necrosis are also appreciated. Diagnosis: Part I: Ulcerated skin with granulation tissue and necrosis, consistent with decubitus ulcer (left buttock). Microscopic Description: Part II: The histologic sections show ulcerated skin with extensive acute inflammation and necrosis. Diagnosis: Part II: Ulcerated skin showing acute inflammation and necrosis, consistent with decubitus ulcer (left hip). [facility]# [id number] [facility] CENTERMireya
--- NOTE | 2016-09-06 10:21 | Discharge Summary ---
DATE OF DISCHARGE: 08/31/2016 This is a 81-year-old male patient, admitted, has multiple medical problems including hypertension, diabetes, dementia, and also admitted for abnormal labs including the low hemoglobin and also high BUN and creatinine and also the patient had a decubitus ulcer. The patient also had a PEG and the patient was treated for sepsis secondary to urinary tract infection, urosepsis and dementia, hypertension, anemia and later on, the patient needed the blood test, the patient was given ____ and then later on, the patient also had a ____ debridement, which is done and the patient was in stable condition on August 31. Arrangements were made to transfer the patient to [facility] and I will be seeing the patient for followup. Condition at the time of discharge was stable. JOB# [id number]
== END 2016-08-31 20:50 | disposition short-term general hospital (02) | DRG 853 ==
LOC: ER 13:30 → MSI 15:30
PROVIDERS: ADMIT Internal Medicine; ATTEND Internal Medicine
PROC: 30233N1 Transfusion of Nonautologous Red Blood Cells into Peripheral Vein, Percutaneous Approach (ICD-10-PCS; principal; 2016-08-23)
PROC: 0KBP0ZZ Excision of Left Hip Muscle, Open Approach (ICD-10-PCS; 2016-08-31)
PROC: 0JBL0ZZ Excision of Right Upper Leg Subcutaneous Tissue and Fascia, Open Approach (ICD-10-PCS; 2016-08-31)
PROC: 0JB70ZZ Excision of Back Subcutaneous Tissue and Fascia, Open Approach (ICD-10-PCS; 2016-08-31)
DX: A41.9 Sepsis, unspecified organism (principal); E43 Unspecified severe protein-calorie malnutrition; N17.9 Acute kidney failure, unspecified; G93.41 Metabolic encephalopathy; L89.223 Pressure ulcer of left hip, stage 3; E87.0 Hyperosmolality and hypernatremia; L89.152 Pressure ulcer of sacral region, stage 2; G30.9 Alzheimer's disease, unspecified; F02.80 Dementia in other diseases classified elsewhere, unspecified severity, without behavioral disturbance, psychotic disturbance, mood disturbance, and anxiety; N39.0 Urinary tract infection, site not specified; E11.9 Type 2 diabetes mellitus without complications; I10 Essential (primary) hypertension; D64.9 Anemia, unspecified; E86.0 Dehydration; B96.4 Proteus (mirabilis) (morganii) as the cause of diseases classified elsewhere; L89.212 Pressure ulcer of right hip, stage 2; R13.10 Dysphagia, unspecified; Z68.20 Body mass index [BMI] 20.0-20.9, adult; Z93.1 Gastrostomy status
CPT/HCPCS: 36415-UA; 71010-TC; 76770-TC; 80048-TC; 80053-TC; 81001-TC; 81015-TC; 82043-90; 82550-TC; 82565-TC; 82570-TC; 82607-90; 82728-90; 82948-90; 83540-90; 83550-90; 83605; 83735-TC; 83935-90; 84100-TC; 84300-TC; 84520-TC; 84550-TC; 85007-TC; 85014-TC; 85018-TC; 85025-TC; 85027-TC; 85610-TC; 85652-TC; 85730-TC; 86141-TC; 86850-TC; 86900-TC; 86901-TC; 86922-TC; 87086-90; J0696; J1815; J2001; J2185; J2250; J2543; J2704; J7030; J7042; J7070; P9016; Z7610